=== PATIENT | female | born 1980 | race Two or more races ===

== ENCOUNTER → 2020-07-09 10:34 | Outpatient (BNVA) | payer OTHER, SELFPAY | PROVIDERS: PCP Internal Medicine; Visit Provider Anesthesiology | DX: M47.812 Spondylosis without myelopathy or radiculopathy, cervical region (principal); M47.816 Spondylosis without myelopathy or radiculopathy, lumbar region; M51.36 Other intervertebral disc degeneration, lumbar region; R42 Dizziness and giddiness | CPT/HCPCS: 99214 ==

== ENCOUNTER 2020-09-03 13:18 | Outpatient (REF) | payer OTHER, SELFPAY | END 2020-09-03 13:19 | disposition home or self-care (01) | LOC: HO.LAB 13:18 | PROVIDERS: PCP Internal Medicine; Visit Provider Internal Medicine | DX: Z20.828 Contact with and (suspected) exposure to other viral communicable diseases (principal) | CPT/HCPCS: C9803; U0003 ==

== ENCOUNTER 2020-09-18 05:25 | Outpatient (REF) | payer OTHER, SELFPAY | END 2020-09-18 05:26 | disposition home or self-care (01) | LOC: HO.RADIR 05:25 | PROVIDERS: Visit Provider Anesthesiology | DX: Z13.89 Encounter for screening for other disorder (principal) ==

== ENCOUNTER 2020-11-14 12:45 | Outpatient (REF) | payer OTHER, SELFPAY ==
[2020-11-14 13:54] LABS: MANUAL DIFF FLAG NO
[2020-11-14 14:03] LABS: Basophils Percent Auto 0.4 % (0-2); Eosinophils Percent Auto 0.6 % (0-4); Hematocrit 41.9 % (37-47); Hemoglobin 13.8 g/dl (12.0-16.0); Imm Gran Abs Auto 0.02 X10*3/uL (0.00-0.03); Imm Gran Pct Auto 0.3 % (0.0-0.4); Lymphocytes Absolute Auto 2.3 X10*3/uL (1.2-4.9); Lymphocytes Percent Auto 31.6 % (20-40); Mean Corpuscular HGB Conc 32.9 g/dl (31.0-35.0); Mean Corpuscular Hemoglobin 29.2 pg (27.0-33.0); Mean Corpuscular Volume 88.6 fL (80-98); Monocytes Absolute Auto 0.3 X10*3/uL (0.1-1.2); Monocytes Percent Auto 4.7 % (2-11); Neutrophils Absolute Auto 4.5 X10*3/uL (2.0-8.3); Neutrophils Percent Auto 62.4 % (45-73); Platelet Count 232 X10*3/uL (160-400); Red Blood Count 4.73 X10*6/uL (4.20-5.50); Red Cell Distribution Width 12.5 % (11.0-16.0); White Blood Count 7.3 X10*3/uL (4.8-10.8)
[2020-11-14 14:31] LABS: Alanine Aminotransferase 10 U/L (0-31); Albumin Level 4.5 g/dL (3.5-5.0); Alkaline Phosphatase 98 U/L (39-117); Anion Gap 10 (12-20); Aspartate Amino Transferase 19 U/L (5-31); Bilirubin Total 0.7 mg/dL (0.0-1.0); Blood Urea Nitrogen 10 mg/dL (9-16); Calcium 9.8 mg/dL (8.4-10.2); Carbon Dioxide 29 mmol/L (22-29); Chloride 104 mmol/L (96-108); Cholesterol 274 mg/dL; Estimated Glomerular Filt Rate > 60; Glucose Fasting 89 mg/dL (60-99); HDL Cholesterol 38 mg/dL; LDL Cholesterol Calculated 214 mg/dl; Potassium 4.5 mmol/L (3.3-5.1); Sodium 138 mmol/L (135-145); Total Protein 8.1 g/dL (6.5-8.0); Triglycerides 114 mg/dL
[2020-11-14 14:54] LABS: TSH reflex Free T4 1.16 uIU/mL (0.32-4.0); Vitamin D 25-OH Total 13.4 ng/mL (>30)
[2020-11-14 15:11] LABS: Erythrocyte Sedimentation Rate 34 MM/HR (0-20)
== END 2020-11-14 12:46 | disposition home or self-care (01) ==
LOC: HO.WFDLDS 12:45
PROVIDERS: Visit Provider Family Medicine
DX: Z00.00 Encounter for general adult medical examination without abnormal findings (principal); E55.9 Vitamin D deficiency, unspecified; M94.0 Chondrocostal junction syndrome [Tietze]
CPT/HCPCS: 36415; 80053; 80061; 82306; 84443; 85025; 85652

== ENCOUNTER 2021-01-10 03:35 | Emergency (ER) | payer OTHER, SELFPAY ==
[2021-01-10 03:44] VITALS: BP 155/84; PULSE 82; RESP 14; TEMP 36; O2SAT 100; BMI 30.8
[2021-01-10 04:00] VITALS: BP 163/88; PULSE 84
[2021-01-10 04:02] VITALS: BP 151/70; BP 155/78; PULSE 84
[2021-01-10 04:03] VITALS: BP 163/88; PULSE 84
--- NOTE | 2021-01-10 05:33 | ECG_ITS ---
Test Reason : DIZZINESS Blood Pressure : / mmHG Vent. Rate : 091 BPM Atrial Rate : 091 BPM P-R Int : 144 ms QRS Dur : 076 ms QT Int : 360 ms P-R-T Axes : 046 -01 022 degrees QTc Int : 442 ms Normal sinus rhythm with sinus arrhythmia Cannot rule out Anterior infarct , age undetermined Abnormal ECG When compared with ECG of 23-JAN-2020 13:37, T wave amplitude has decreased in Anterior leads Referred By: Karyn Montejo Electronically Signed By:FERNANDO QUAN MD
--- NOTE | 2021-01-10 05:33 | ED.DIZZY ---
HPI - Dizziness General Chief Complaint: Dizziness Stated Complaint: Dizziness Time Seen by Provider: 01/10/21 05:25 Source: patient Mode of arrival: ambulatory Limitations: no limitations History of Present Illness HPI Narrative: Patient comes emergency room complaining of dizziness. Patient states around midnight she woke up, walk towards the bathroom, noticed that everything in the room was spinning. Patient went to sleep, an hour later she woke up and had the same symptoms. Patient states this spinning/dizziness sensation lasted for approximately 2 hours, came to the emergency room, and her symptoms stopped. At this time, patient has no dizziness. Patient denies headache, no visual changes, no nausea or vomiting, no chest pain or shortness of breath. Patient was able to walk to her room from the waiting room unassisted MD elicited complaint: dizziness Related Data Previous Rx's Medication Instructions Recorded omeprazole 40 mg capsule,delayed 40 mg PO DAILY 90 Days #90 cap 12/05/20 release topiramate 50 mg tablet 50 mg PO BID #60 tab 01/02/21 cyclobenzaprine 5 mg tablet 5 - 10 mg PO TID PRN #20 tab 01/03/21 naproxen 500 mg tablet 500 mg PO BID PRN #30 tab 01/03/21 prednisone 20 mg tablet 20 mg PO DAILY 9 Days #18 tab 01/03/21 Allergies Allergy/AdvReac Type Severity Reaction Status Date / Time Penicillins [PENICILLINS] Allergy Intermediate HIVES Verified 01/03/21 10:27 levofloxacin [From LEVAQUIN] Allergy Mild hives Unverified 01/03/21 10:27 cetirizine [Zyrtec] Allergy Unknown palpitation Verified 01/03/21 10:27 s lamotrigine [LAMOTRIGINE] Allergy Unknown PT DOESN'T Verified 01/03/21 10:27 KNOW, blurry vision latex [LATEX] Allergy Unknown HIVES Verified 01/03/21 10:27 Review of Systems Review of Systems: Constitutional : No Weight loss, No Fever, No Chills, No Night Sweats, No Fatigue, No Malaise ENT/Mouth : No Hearing loss, No Ear Pain, No Nasal Congestion, No Sinus Pain, No Hoarseness, No sore throat, No Rhinorrhea, No Swallowing Difficulty Eyes: No Eye Pain, No Swelling, No Redness, No Foreign Body, No Discharge, No Vision Changes Cardiovascular : No Chest Pain, No SOB, No Dyspnea on Exertion, No Orthopnea, No Edema, No Palpitations Respiratory : No Cough, No Sputum, No Wheezing, No Smoke Exposure, No Dyspnea Gastrointestinal : No Nausea, No Vomiting, No Diarrhea, No Constipation, No abdominal Pain, No Hematochezia, No Melena Genitourinary : no irregular bleeding, No Dysuria, No Urinary Frequency, No Hematuria, No Urinary Incontinence, No Urgency, No Flank Pain, No Urinary Flow Changes, No Hesitancy Musculoskeletal : No joint pain, No Myalgias, No Joint Swelling Skin : No Skin Lesions, No rash Neuro : No Weakness, No Numbness, No Paresthesias, No Loss of Consciousness, complaining of Dizziness (room spinning), No Headache Psych : No Anxiety/Panic, No Depression, No SI/HI/AH/VH, No Social Issues, Heme/Lymph: No Bruising, No Bleeding,No Lymphadenopathy Endocrine : No Polyuria, No Polydipsia, No Temperature Intolerance COUNT INCLUDES THE [facility] Past Medical History Medical History Arthropathy of cervical facet joint Disc degeneration, lumbar Dizziness Spondylosis of lumbar region without myelopathy or radiculopathy Surgical History History of bilateral tubal ligation History of section Hx of prior ablation treatment Family History Family History (Updated 11/13/20 @ 09:14 by Mitzi Raya Driss, [facility]) Father No problems noted. Mother No problems noted. Brother No problems noted. Brother No problems noted. Brother No problems noted. Brother No problems noted. Brother No problems noted. Brother No problems noted. Sister No problems noted. Sister No problems noted. Sister No problems noted. Son No problems noted. Son No problems noted. Son No problems noted. Daughter No problems noted. Daughter No problems noted. Social History Social History (Updated 01/10/21 @ 03:49 by Wen Quiros RN) Alcohol intake: never Smoking Status: Never smoker Advance Directives: No Access to Firearms: No Do you have thoughts of harming others: None Physical Exam Vital Signs: Vital Signs: Last Vital Signs Temp 96.8 F 01/10/21 03:44 Pulse 83 01/10/21 06:00 Resp 14 01/10/21 03:44 BP 154/66 H 01/10/21 06:00 Pulse Ox 99 01/10/21 06:00 Body Mass Index 30.8 Appearance: Alert. Oriented X3. No acute distress. Eyes: Pupils equal, round and reactive to light. No nystagmus ENT: Pharynx normal. Neck: Normal inspection. Neck supple. No lymph nodes noted. No crepitus CVS: Normal heart rate and rhythm. Pulses normal. Normal S1 and S2 Respiratory: No respiratory distress. Breath sounds normal. No Wheezing. No rales Abdomen: Soft and nontender. No rigidity. No distention. good BS x4 Skin: Skin warm and dry. Normal skin color. Normal skin turgor. Extremities: No lower extremity edema. Neuro: Oriented X 3. No motor deficit. No sensory deficit. Moving all extermities. No slurred speech. Patient is able to walk steady, unassisted Course Course Course Narrative: Patient states that she feels much better, patient states that she has good stability, occasionally feels that the room is spinning but it stops almost immediately. On recheck, patient is able to walk, steady gait, unassisted, no nystagmus. Patient likely has vertigo, posterior cerebral circulation stroke is not suspected at this time, BPPV is a differential. MDM - Dizziness Lab Data Result diagrams: 01/10/21 05:50 01/10/21 05:50 Labs: Lab Results 01/10/21 01/10/21 01/10/21 Range/Units 05:50 05:50 05:50 WBC 7.8 (4.8-10.8) X10*3/uL RBC 4.40 (4.20-5.50) X10*6/uL Hgb 13.1 (12.0-16.0) g/dl Hct 39.7 (37-47) % MCV 90.2 (80-98) fL MCH 29.8 (27.0-33.0) pg MCHC 33.0 (31.0-35.0) g/dl RDW 12.7 (11.0-16.0) % Plt Count 246 (160-400) X10*3/uL MPV 10.4 (9.4-12.3) fL Immature Gran % (Auto) 0.6 H (0.0-0.4) % Neut % (Auto) 67.8 (45-73) % Lymph % (Auto) 23.9 (20-40) % [place] % (Auto) 6.7 (2-11) % Eos % (Auto) 0.5 (0-4) % Baso % (Auto) 0.5 (0-2) % Lymph # (Auto) 1.9 (1.2-4.9) X10*3/uL [place] # (Auto) 0.5 (0.1-1.2) X10*3/uL Eos # (Auto) 0.0 (0.0-0.4) X10*3/uL Baso # (Auto) 0.0 (0.0-0.2) X10*3/uL Abs Immat Gran (auto) 0.05 H (0.00-0.03) X10*3/uL Absolute Neuts (auto) 5.3 (2.0-8.3) X10*3/uL Absolute Nucleated RBC 0.000 (0.0-0.012) X10*3/uL Nucleated RBC % (auto) 0.0 (0.0-0.2) /100WBC Sodium 141 (135-145) mmol/L Potassium 4.1 (3.3-5.1) mmol/L Chloride 109 H (96-108) mmol/L Carbon Dioxide 25 (22-29) mmol/L Anion Gap 11 L (12-20) BUN 11 (9-16) mg/dL Creatinine 0.62 (0.5-1.4) mg/dL Estim Creat Clear Calc 104.4 Estimated GFR > 60 Random Glucose 92 (60-115) mg/dL Calcium 9.5 (8.4-10.2) mg/dL Troponin I High Sens < 3.5 (<3.5-17.0) ng/L ECG Data Attestation: I personally reviewed and interpreted this ECG as follows: (Rate 91, sinus rhythm, no ST segment depression or elevation, nonspecific T-wave inversion in lead 3, QTC 442) Discharge Plan Discharge Clinical Impression: Vertigo Patient Disposition: Home, Self-Care Instructions: Vertigo (ED) Additional Instructions: Please follow-up with your primary care physician tomorrow. If you have any worsening or new symptoms, please return to the emergency room or call 911 Prescriptions: No Action topiramate 50 mg tablet 50 mg PO BID Qty: 60 RF: 1 omeprazole 40 mg capsule,delayed release(DR/EC) 40 mg PO DAILY 90 Days Qty: 90 RF: 2 prednisone 20 mg tablet 20 mg PO DAILY 9 Days Qty: 18 RF: 0 naproxen 500 mg tablet 500 mg PO BID PRN (Reason: pain) Qty: 30 RF: 0 cyclobenzaprine 5 mg tablet 5 - 10 mg PO TID PRN (Reason: muscle spasm) Qty: 20 RF: 0
[2021-01-10] MEDS: Meclizine HCl 25 MG TABLET 50 MG PO (05:42)
[2021-01-10 06:00] VITALS: BP 154/66; PULSE 83; O2SAT 99
[2021-01-10 06:00] LABS: MANUAL DIFF FLAG NO
[2021-01-10 06:01] LABS: Basophils Percent Auto 0.5 % (0-2); Eosinophils Percent Auto 0.5 % (0-4); Hematocrit 39.7 % (37-47); Hemoglobin 13.1 g/dl (12.0-16.0); Imm Gran Abs Auto 0.05 X10*3/uL (0.00-0.03); Imm Gran Pct Auto 0.6 % (0.0-0.4); Lymphocytes Absolute Auto 1.9 X10*3/uL (1.2-4.9); Lymphocytes Percent Auto 23.9 % (20-40); Mean Corpuscular Hemoglobin 29.8 pg (27.0-33.0); Mean Corpuscular Volume 90.2 fL (80-98); Mean Platelet Volume 10.4 fL (9.4-12.3); Monocytes Absolute Auto 0.5 X10*3/uL (0.1-1.2); Monocytes Percent Auto 6.7 % (2-11); Neutrophils Absolute Auto 5.3 X10*3/uL (2.0-8.3); Neutrophils Percent Auto 67.8 % (45-73); Platelet Count 246 X10*3/uL (160-400); Red Cell Distribution Width 12.7 % (11.0-16.0); White Blood Count 7.8 X10*3/uL (4.8-10.8)
[2021-01-10 06:31] LABS: Anion Gap 11 (12-20); Blood Urea Nitrogen 11 mg/dL (9-16); Calcium 9.5 mg/dL (8.4-10.2); Carbon Dioxide 25 mmol/L (22-29); Chloride 109 mmol/L (96-108); Creatinine Clr Calc Pharmacy 104.4; Estimated Glomerular Filt Rate > 60; Glucose Random 92 mg/dL (60-115); Potassium 4.1 mmol/L (3.3-5.1); Sodium 141 mmol/L (135-145)
[2021-01-10 06:38] LABS: Troponin-I High Sensitivity < 3.5 ng/L (<3.5-17.0)
--- NOTE | 2021-01-10 06:43 | PC.NURSE ---
Patient states that she felt relief of the dizziness with the meclizine- pt complaining of pressure in the back of her head.
[2021-01-10 07:12] VITALS: BP 143/72; PULSE 84; RESP 18; O2SAT 95
[2021-01-10] MEDS: LORazepam 1 MG TABLET 2 MG PO (07:56)
== END 2021-01-10 08:18 | disposition home or self-care (01) ==
PROVIDERS: Emergency Provider Emergency Medicine; PCP Family Medicine
DX: R42 Dizziness and giddiness (principal); I10 Essential (primary) hypertension
CPT/HCPCS: 36415; 80048; 84484; 85025; 93005; 99283; 99284

== ENCOUNTER 2021-02-14 10:23 | Outpatient (REF) | payer OTHER, SELFPAY ==
[2021-02-14 12:12] LABS: MANUAL DIFF FLAG NO
[2021-02-14 12:18] LABS: Basophils Percent Auto 0.5 % (0-2); Eosinophils Percent Auto 0.7 % (0-4); Hematocrit 39.2 % (37-47); Hemoglobin 12.9 g/dl (12.0-16.0); Imm Gran Abs Auto 0.01 X10*3/uL (0.00-0.03); Imm Gran Pct Auto 0.2 % (0.0-0.4); Lymphocytes Absolute Auto 1.9 X10*3/uL (1.2-4.9); Lymphocytes Percent Auto 30.9 % (20-40); Mean Corpuscular HGB Conc 32.9 g/dl (31.0-35.0); Mean Corpuscular Hemoglobin 29.3 pg (27.0-33.0); Mean Corpuscular Volume 88.9 fL (80-98); Monocytes Absolute Auto 0.3 X10*3/uL (0.1-1.2); Monocytes Percent Auto 5.4 % (2-11); Neutrophils Absolute Auto 3.8 X10*3/uL (2.0-8.3); Neutrophils Percent Auto 62.3 % (45-73); Platelet Count 222 X10*3/uL (160-400); Red Blood Count 4.41 X10*6/uL (4.20-5.50); Red Cell Distribution Width 12.8 % (11.0-16.0); White Blood Count 6.2 X10*3/uL (4.8-10.8)
[2021-02-14 12:59] LABS: Vitamin D 25-OH Total 22.5 ng/mL (>30)
[2021-02-14 13:01] LABS: Alanine Aminotransferase 9 U/L (0-31); Albumin Level 4.1 g/dL (3.5-5.0); Alkaline Phosphatase 81 U/L (39-117); Anion Gap 11 (12-20); Aspartate Amino Transferase 16 U/L (5-31); Bilirubin Total 0.6 mg/dL (0.0-1.0); Blood Urea Nitrogen 11 mg/dL (9-16); C Reactive Protein 0.32 mg/dL (< or = 0.50); Calcium 9.3 mg/dL (8.4-10.2); Carbon Dioxide 27 mmol/L (22-29); Chloride 106 mmol/L (96-108); Cholesterol 262 mg/dL; Estimated Glomerular Filt Rate > 60; Glucose Random 86 mg/dL (60-115); HDL Cholesterol 39 mg/dL; LDL Cholesterol Calculated 210 mg/dl; Potassium 4.1 mmol/L (3.3-5.1); Sodium 140 mmol/L (135-145); Total Protein 7.3 g/dL (6.5-8.0); Triglycerides 69 mg/dL
[2021-02-14 13:13] LABS: Rheumatoid Factor < 15.0 IU/mL (<15.0)
[2021-02-14 13:34] LABS: Erythrocyte Sedimentation Rate 23 MM/HR (0-20)
[2021-02-15 17:21] LABS: Cyclic Citrullinated Peptide <16 UNITS
[2021-02-16 00:11] LABS: Anti Nuclear Antibody Screen POSITIVE (NEGATIVE)
== END 2021-02-14 10:24 | disposition home or self-care (01) ==
LOC: HO.LAB 10:23
PROVIDERS: Absent Provider Family Medicine; PCP Nurse Practitioner Community Health; Visit Provider Student in an Organized Health Care Education/Training Program
DX: M25.50 Pain in unspecified joint (principal); R70.0 Elevated erythrocyte sedimentation rate; M75.31 Calcific tendinitis of right shoulder; M75.32 Calcific tendinitis of left shoulder; Z00.00 Encounter for general adult medical examination without abnormal findings; E78.5 Hyperlipidemia, unspecified; E55.9 Vitamin D deficiency, unspecified
CPT/HCPCS: 36415; 80053; 80061; 82306; 85025; 85652; 86038; 86039; 86140; 86200; 86431; 99202

== ENCOUNTER 2021-02-20 10:14 | Outpatient (REF) | payer OTHER, SELFPAY ==
[2021-02-20 11:43] LABS: Glucose Urine UA NEG (NEG); Leukocyte Esterase Urine TRACE (NEG); Nitrite Urine NEG (NEG); Urine Blood NEG (NEG); Urine Ketones NEG (NEG); Urine Protein NEG (NEG-TRACE)
[2021-02-20 11:45] LABS: Appearance Urine CLEAR; Color Urine YELLOW
[2021-02-20 12:07] LABS: RBC Urine 0-2 /HPF (0); Squamous Epithelial Cell Urine 1+ /LPF
[2021-02-21 13:06] LABS: Anti DNA DS Antibody 8 IU/mL; Antibody to SS-A Antigen <1.0 NEG AI (<1.0 NEG); Antibody to SS-B Antigen <1.0 NEG AI (<1.0 NEG); SM/Ribonucleoprotein Ab <1.0 NEG AI (<1.0 NEG); Smith Protein <1.0 NEG AI (<1.0 NEG); Thyroglobulin Antibodies <1 IU/mL (< or = 1); Thyroid Peroxidase Antibodies 1 IU/mL (<9)
[2021-02-22 16:22] LABS: Complement C3 98 mg/dL (83-193)
== END 2021-02-20 10:15 | disposition home or self-care (01) ==
LOC: HO.LAB 10:14
PROVIDERS: PCP Nurse Practitioner Community Health; Visit Provider Student in an Organized Health Care Education/Training Program
DX: R76.8 Other specified abnormal immunological findings in serum (principal)
CPT/HCPCS: 36415; 81001; 86160; 86225; 86235; 86376; 86800

== ENCOUNTER 2021-02-21 15:32 | Emergency (ER) | payer OTHER, SELFPAY ==
--- NOTE | 2021-02-21 | ECG_ITS ---
Test Reason : DIZZINESS Blood Pressure : / mmHG Vent. Rate : 059 BPM Atrial Rate : 059 BPM P-R Int : 122 ms QRS Dur : 078 ms QT Int : 428 ms P-R-T Axes : -22 006 020 degrees QTc Int : 423 ms Sinus bradycardia Otherwise normal ECG When compared with ECG of 10-JAN-2021 05:41, Vent. rate has decreased BY 32 BPM Referred By: Generic ED Physician Electronically Signed By:FERNANDO QUAN MD
[2021-02-21 16:22] VITALS: BP 160/78; PULSE 66; RESP 18; TEMP 37.2; O2SAT 100; BMI 31.2
[2021-02-21 18:48] VITALS: BP 160/86; PULSE 64; RESP 18; O2SAT 100
[2021-02-21 19:01] LABS: MANUAL DIFF FLAG NO
[2021-02-21 19:03] LABS: Basophils Percent Auto 0.4 % (0-2); Eosinophils Absolute Auto 0.1 X10*3/uL (0.0-0.4); Eosinophils Percent Auto 0.8 % (0-4); Hematocrit 39.5 % (37-47); Hemoglobin 13.3 g/dl (12.0-16.0); Imm Gran Abs Auto 0.04 X10*3/uL (0.00-0.03); Imm Gran Pct Auto 0.5 % (0.0-0.4); Lymphocytes Absolute Auto 2.2 X10*3/uL (1.2-4.9); Lymphocytes Percent Auto 25.7 % (20-40); Mean Corpuscular HGB Conc 33.7 g/dl (31.0-35.0); Mean Corpuscular Hemoglobin 29.9 pg (27.0-33.0); Mean Corpuscular Volume 88.8 fL (80-98); Mean Platelet Volume 10.8 fL (9.4-12.3); Monocytes Absolute Auto 0.4 X10*3/uL (0.1-1.2); Monocytes Percent Auto 4.6 % (2-11); Neutrophils Absolute Auto 5.8 X10*3/uL (2.0-8.3); Platelet Count 213 X10*3/uL (160-400); Red Blood Count 4.45 X10*6/uL (4.20-5.50); Red Cell Distribution Width 12.7 % (11.0-16.0); White Blood Count 8.6 X10*3/uL (4.8-10.8)
[2021-02-21 19:39] LABS: Alanine Aminotransferase 7 U/L (0-31); Albumin Level 4.3 g/dL (3.5-5.0); Alkaline Phosphatase 89 U/L (39-117); Anion Gap 11 (12-20); Aspartate Amino Transferase 19 U/L (5-31); Bilirubin Total 0.4 mg/dL (0.0-1.0); Calcium 9.5 mg/dL (8.4-10.2); Carbon Dioxide 27 mmol/L (22-29); Chloride 106 mmol/L (96-108); Creatinine Clr Calc Pharmacy 95.8; Estimated Glomerular Filt Rate > 60; Glucose Random 84 mg/dL (60-115); Potassium 3.8 mmol/L (3.3-5.1); Sodium 140 mmol/L (135-145); Total Protein 7.6 g/dL (6.5-8.0)
[2021-02-21 19:47] LABS: Blood Urea Nitrogen 10 mg/dL (9-16)
== END 2021-02-21 22:18 | disposition left against medical advice (07) ==
PROVIDERS: Emergency Provider Emergency Medicine
DX: I10 Essential (primary) hypertension (principal); R42 Dizziness and giddiness; E78.5 Hyperlipidemia, unspecified
CPT/HCPCS: 36415; 80053; 85025; 93005; 99283

== ENCOUNTER 2021-04-18 08:17 | Outpatient (REF) | payer OTHER, SELFPAY ==
--- NOTE | ~2021-04-18 | US_ITS ---
EXAMINATION: US ABDOMEN COMPLETE CLINICAL INFORMATION: Right upper quadrant pain. COMPARISON: Renal ultrasound 04/14/2019. CT abdomen and pelvis 12/30/2017. TECHNIQUE: Real-time imaging of the abdominal viscera. FINDINGS: PANCREAS: The pancreas is obscured by overlying gas ABDOMINAL AORTA: The proximal, mid, and distal segments are normal in caliber. INFERIOR VENA CAVA: Visualized portions are normal. LIVER: The liver is normal in size. The liver contour is normal. The liver is diffusely echogenic. No focal hepatic lesion. There is no intrahepatic biliary duct dilatation seen. GALLBLADDER: Normal. The gallbladder is physiologically distended without evidence of stones, sludge, polyps, wall thickening or pericholecystic fluid. COMMON BILE DUCT: Normal in caliber measuring 0.30 cm in diameter. RIGHT KIDNEY: Normal. No hydronephrosis. No renal calculi or focal parenchymal lesions. The kidney measures 10.8 cm in maximum dimension. LEFT KIDNEY: Normal. No hydronephrosis. No renal calculi or focal parenchymal lesions. The kidney measures 11.1 cm in maximum dimension. SPLEEN: Normal. The spleen measures 9.1 cm in maximum dimension. FREE FLUID: None. US/US abdomen complete IMPRESSION: Diffuse hepatic echogenicity without focal lesion. Rest of the abdominal ultrasound is unremarkable.
== END 2021-04-18 08:18 | disposition home or self-care (01) ==
LOC: HO.HMGCX 08:17
PROVIDERS: PCP Nurse Practitioner Community Health; Visit Provider Nurse Practitioner Community Health
DX: R10.11 Right upper quadrant pain (principal)
CPT/HCPCS: 76700

== ENCOUNTER → 2021-05-03 12:19 | Outpatient (BNVA) | payer OTHER, SELFPAY | PROVIDERS: PCP Nurse Practitioner Community Health; Visit Provider Student in an Organized Health Care Education/Training Program | DX: M25.50 Pain in unspecified joint (principal); M79.7 Fibromyalgia | CPT/HCPCS: 99212 ==

== ENCOUNTER 2021-05-31 08:25 | Outpatient (REF) | payer OTHER, SELFPAY | END 2021-05-31 08:26 | disposition home or self-care (01) | LOC: HO.LAB 08:25 | PROVIDERS: Visit Provider Internal Medicine | DX: Z20.822 Contact with and (suspected) exposure to COVID-19 (principal) | CPT/HCPCS: C9803; U0003; U0005 ==

== ENCOUNTER 2021-07-06 09:17 | Emergency (ER) | payer OTHER, SELFPAY ==
[2021-07-06 09:22] VITALS: BP 139/72; PULSE 67; RESP 18; TEMP 36.6; O2SAT 99; BMI 30.9
--- NOTE | 2021-07-06 11:47 | ED.GENADULT ---
HPI - General Adult General Chief complaint: Skin/Abscess/Foreign Body Stated complaint: rash Time Seen by Provider: 07/06/21 11:47 Source: patient Mode of arrival: ambulatory Limitations: no limitations History of Present Illness HPI narrative: Patient noticed yesterday to have rash, round and red on her right lower extremity. Patient denies going into the ahn. However she does [place] Patient denies any pruritus, no drainage, no pain. Patient does not remember feeling like she was bit by any insects. Onset (ago): day(s) Related Data Previous Rx's Medication Instructions Recorded omeprazole 40 mg capsule,delayed 40 mg PO DAILY 90 Days #90 cap 12/05/20 release meclizine 25 mg tablet 25 mg PO TID PRN #36 tab 01/18/21 topiramate 50 mg tablet 50 mg PO BID #60 tab 04/01/21 doxycycline hyclate 100 mg tablet 100 mg PO BID 21 Days #42 tab 07/06/21 Allergies Allergy/AdvReac Type Severity Reaction Status Date / Time Penicillins [PENICILLINS] Allergy Intermediate HIVES Verified 05/03/21 12:27 levofloxacin [From LEVAQUIN] Allergy Mild hives Verified 05/03/21 12:27 cetirizine [Zyrtec] Allergy Unknown palpitation Verified 05/03/21 12:27 s lamotrigine [LAMOTRIGINE] Allergy Unknown blurry Verified 05/03/21 12:27 vision latex [LATEX] Allergy Unknown HIVES Verified 05/03/21 12:27 Review of Systems Review of Systems: Constitutional : No Weight loss, No Fever, No Chills, No Night Sweats, No Fatigue, No Malaise ENT/Mouth : No Hearing loss, No Ear Pain, No Nasal Congestion, No Sinus Pain, No Hoarseness, No sore throat, No Rhinorrhea, No Swallowing Difficulty Eyes: No Eye Pain, No Swelling, No Redness, No Foreign Body, No Discharge, No Vision Changes Cardiovascular : No Chest Pain, No SOB, No Dyspnea on Exertion, No Orthopnea, No Edema, No Palpitations Respiratory : No Cough, No Sputum, No Wheezing, No Smoke Exposure, No Dyspnea Gastrointestinal : No Nausea, No Vomiting, No Diarrhea, No Constipation, No abdominal Pain, No Hematochezia, No Melena Genitourinary : no irregular bleeding, No Dysuria, No Urinary Frequency, No Hematuria, No Urinary Incontinence, No Urgency, No Flank Pain, No Urinary Flow Changes, No Hesitancy Musculoskeletal : No joint pain, No Myalgias, No Joint Swelling Skin : No Skin Lesions, rash to right lower extremity Neuro : No Weakness, No Numbness, No Paresthesias, No Loss of Consciousness, No Dizziness, No Headache Psych : No Anxiety/Panic, No Depression, No SI/HI/AH/VH, No Social Issues, Yes all other systems are reviewed and are negative PMFSH Past Medical History Medical History Arthropathy of cervical facet joint Disc degeneration, lumbar Dizziness Spondylosis of lumbar region without myelopathy or radiculopathy Surgical History History of bilateral tubal ligation History of section Hx of prior ablation treatment Family History Family History Father No problems noted. Mother No problems noted. Brother No problems noted. Brother No problems noted. Brother No problems noted. Brother No problems noted. Brother No problems noted. Brother No problems noted. Sister No problems noted. Sister No problems noted. Sister No problems noted. Son No problems noted. Son No problems noted. Son No problems noted. Daughter No problems noted. Daughter No problems noted. Social History Social History Alcohol intake: never Patient Tobacco Use Status: Never used Tobacco e-Cigarette/Vaping Use: Never Used Advance Directives: No Physical Exam Vital Signs: Vital Signs: Last Vital Signs Temp 97.9 F 07/06/21 09:22 Pulse 67 07/06/21 09:22 Resp 18 07/06/21 09:22 BP 139/72 07/06/21 09:22 Pulse Ox 99 07/06/21 09:22 Body Mass Index 30.9 Const: General: healthy appearing, no acute distress and well developed Nutritional Appearance: well nourished Orientation/consciousness: patient oriented x3 HENMT: Head: Yes normal to inspection, Yes normocephalic and Yes atraumatic Neck: Neck: Yes normal visual inspection, Yes full ROM and Yes trachea midline Thyroid: Thyroid normal Resp: Auscultation: clear to auscultation bilaterally Cardio: Rate: regular rate Rhythm: regular rhythm GI: Inspection: Yes normal to inspection and No distended Palpation (GI): No hepatosplenomegaly present Auscultation: normal bowel sounds Skin: Other: General skin exam: elasticity normal, turgor normal and dry skin Neuro: General: patient oriented x3 Extrem: Right upper extremity: normal to inspection, full ROM and normal capillary refill Left upper extremity: normal to inspection, full ROM and normal capillary refill Right lower extremity: full ROM, normal capillary refill and lower leg (Rash) Left lower extremity: normal to inspection, full ROM and normal capillary refill Course Course Course Narrative: Red rash to her right lower extremity. Typical Bull's eye like looking rash. Patient has not seen any take or any insect bite. She reports that she just noticed that yesterday afternoon. Patient denies being in the ahn, however she does report [place]. We will treat her with doxycycline and send her home on 21 day treatment. Patient can follow-up with PCP. Discharge Plan Discharge Clinical Impression: Tick bite Qualifiers: Encounter type: initial encounter Site of tick bite: lower leg Laterality: right Qualified Code(s): S80.861A - Insect bite (nonvenomous), right lower leg, initial encounter Patient Disposition: Home, Self-Care Instructions: Lyme Disease (ED), Tick Bite (ED) Additional Instructions: You were seen here today for rash on your right lower leg. Even though you have not felt that this is a typical rash after a tick bite. You were started on antibiotics in the ED and please finish all of the antibiotics. Make sure that you stay away from sun while you taking this medication. Please follow-up with your primary care provider. You are given instructions and information on Lyme disease and symptoms. You may return to emergency department if your symptoms will get worse or if you experience any additional concerning symptoms. Prescriptions: New doxycycline hyclate 100 mg tablet 100 mg PO BID 21 Days Qty: 42 RF: 0 No Action topiramate 50 mg tablet 50 mg PO BID Qty: 60 RF: 1 omeprazole 40 mg capsule,delayed release(DR/EC) 40 mg PO DAILY 90 Days Qty: 90 RF: 2 meclizine 25 mg tablet 25 mg PO TID PRN (Reason: vertigo) Qty: 36 RF: 0 Interventions: ED Discharge Assessment Last Done: 07/06/21 12:06 Discharge Date/Time: 07/06/21 12:09
== END 2021-07-06 12:09 | disposition home or self-care (01) ==
PROVIDERS: Emergency Provider Emergency Medicine
DX: S80.861A Insect bite (nonvenomous), right lower leg, initial encounter (principal); R21 Rash and other nonspecific skin eruption; W57.XXXA Bitten or stung by nonvenomous insect and other nonvenomous arthropods, initial encounter; Y92.9 Unspecified place or not applicable; Y93.9 Activity, unspecified; Y99.9 Unspecified external cause status; Z79.899 Other long term (current) drug therapy
CPT/HCPCS: 99283

== ENCOUNTER 2021-07-30 08:46 | Outpatient (REF) | payer OTHER, SELFPAY | END 2021-07-30 08:47 | disposition home or self-care (01) | LOC: HO.LAB 08:46 | PROVIDERS: Visit Provider Internal Medicine | DX: Z20.822 Contact with and (suspected) exposure to COVID-19 (principal) | CPT/HCPCS: C9803; U0003; U0005 ==

== ENCOUNTER 2021-09-16 10:59 | Outpatient (REF) | payer OTHER, SELFPAY ==
[2021-09-16 11:47] LABS: Binax Internal Control QC Valid; Binax Lot number: 9864; Binax Now Covid-19 Ag Negative (Negative)
== END 2021-09-16 11:00 | disposition home or self-care (01) ==
LOC: HO.LAB 10:59
PROVIDERS: Visit Provider Internal Medicine
DX: Z20.822 Contact with and (suspected) exposure to COVID-19 (principal)
CPT/HCPCS: 36415; C9803

== ENCOUNTER 2021-12-09 10:47 | Outpatient (REF) | payer OTHER, SELFPAY ==
--- NOTE | ~2021-12-09 | MM_ITS ---
EXAMINATION: MM SCREENING DIGITAL BREAST TOMOSYNTHESIS, BILATERAL CLINICAL INFORMATION: Screening. Asymptomatic. The lifetime risk of breast cancer based on the Tyrer-Cuzick Model is 12%. COMPARISON: Mammography: 09/03/2019, 02/18/2018, 05/29/2017, 09/23/2016 TECHNIQUE: Digital breast tomosynthesis is performed in both the craniocaudal and mediolateral oblique views along with computer-aided detection (CAD). Synthesized 2D images are generated from the tomosynthesis. FINDINGS: There are scattered areas of fibroglandular density (ACR BI-RADS breast composition Category b). There are no significant masses, abnormal calcifications, or other abnormalities. Parenchymal pattern is similar to prior studies. There is no developing density or architectural abnormality. The axilla and skin contours are unremarkable. No significant changes. MM/MM tomosynthesis screening BI IMPRESSION: No mammographic evidence of malignancy. ASSESSMENT: BI-RADS 2: Benign RECOMMENDATION: Routine annual mammography screening. This patient's information was entered into a reminder system with a target due date for their next mammogram.
== END 2021-12-09 10:48 | disposition home or self-care (01) ==
LOC: HO.MAMMO 10:47
PROVIDERS: Visit Provider Nurse Practitioner Community Health
DX: Z12.31 Encounter for screening mammogram for malignant neoplasm of breast (principal)
CPT/HCPCS: 77063; 77067

== ENCOUNTER 2022-12-13 08:06 | Outpatient (REF) | payer OTHER, SELFPAY ==
--- NOTE | ~2022-12-13 | MM_ITS ---
EXAMINATION: MM SCREENING DIGITAL BREAST TOMOSYNTHESIS, BILATERAL CLINICAL INFORMATION: Screening. Asymptomatic. The lifetime risk of breast cancer based on the Tyrer-Cuzick Model is 6%. COMPARISON: Prior mammography exams, most recent 12/09/2021. TECHNIQUE: Digital breast tomosynthesis is performed in both the craniocaudal and mediolateral oblique views along with computer-aided detection (CAD). Synthesized 2D images are generated from the tomosynthesis. FINDINGS: There are scattered areas of fibroglandular density (ACR BI-RADS breast composition Category b). There are no significant masses, abnormal calcifications, or other abnormalities. No architectural abnormality or developing density or significant change from prior studies. The axilla are unremarkable. MM/MM tomosynthesis screening BI IMPRESSION: No mammographic evidence of malignancy. ASSESSMENT: BI-RADS 1: Negative RECOMMENDATION: Routine annual mammography screening. This patient's information was entered into a reminder system with a target due date for their next mammogram.
== END 2022-12-13 08:07 | disposition home or self-care (01) ==
LOC: HO.MAMMO 08:06
PROVIDERS: PCP Nurse Practitioner Community Health; Visit Provider Nurse Practitioner Community Health
DX: Z12.31 Encounter for screening mammogram for malignant neoplasm of breast (principal)
CPT/HCPCS: 77063; 77067

== ENCOUNTER 2023-03-23 10:59 | Emergency (ER) | payer OTHER, SELFPAY ==
[2023-03-23 11:12] VITALS: BP 154/82; PULSE 81; RESP 18; TEMP 36.5; O2SAT 98; BMI 32.2
--- NOTE | 2023-03-23 11:12 | ED_ITS ---
HPI - General Adult General Chief complaint: Allergic Reaction Stated complaint: allergic reaction Time Seen by Provider: 03/23/23 11:41 Source: patient Mode of arrival: ambulatory Limitations: no limitations History of Present Illness HPI narrative: Patient is a 42 year old assigned female at with a history of fibromyalgia, GERD, HTN, and fungal infection of the intestines presenting to the emergency department today with a possible adverse reaction to fluconazole. Patient states that months ago she was told that she had a fungal infection in her intestines and was given 2 weeks worth of fluconzaole. Patient states that she took the first dose back then, had a weird reaction, and waited months to take the second. Patient states that she took the second dose today and immediately had a tingling sensation throughout her whole body. Patient states that all of this GI testing was performed by [facility]. Patient denies any dizziness, lightheadedness, abdominal pain, nausea, vomiting, fever, chills, eileen rry vision, double vision, loss of vision, chest pain, difficulty breathing, shortness of breath, back pain, night sweats, pain with urination, increased urinary frequency, increased urinary urgency, blood in her urine or stool, syncope or a near syncopal episode, recent trauma or falls, bowel incontinence, bladder incontinence, bowel retention, bladder retention, or any other complaints at this time. Onset (ago): minute(s) Severity: mild Severity scale (1-10): 1 Relieving factors: none Exacerbating factors: none Associated symptoms: denies other symptoms Treatments prior to arrival: none Related Data Previous Rx's Medication Instructions Recorded meclizine 25 mg tablet 25 mg PO TID PRN vertigo #36 tabs 01/18/21 topiramate 50 mg tablet 50 mg PO BID #60 tabs 04/01/21 doxycycline hyclate 100 mg tablet 100 mg PO BID 21 days #42 tabs 07/06/21 omeprazole 40 mg capsule,delayed 40 mg PO DAILY #90 caps 09/02/21 release terbinafine HCl 250 mg tablet 250 mg PO DAILY #14 tabs 03/23/23 Allergies Allergy/AdvReac Type Severity Reaction Status Date / Time Penicillins [PENICILLINS] Allergy Intermediate HIVES Verified 03/23/23 11:12 levofloxacin [From LEVAQUIN] Allergy Mild hives Verified 03/23/23 11:12 cetirizine [Zyrtec] Allergy Unknown palpitation Verified 03/23/23 11:12 s lamotrigine [LAMOTRIGINE] Allergy Unknown blurry Verified 03/23/23 11:12 vision latex [LATEX] Allergy Unknown HIVES Verified 03/23/23 11:12 Review of Systems Constitutional: Constitutional: Reports no additional constitutional complaints, Denies chills, Denies fever(s) and Denies night sweats Eyes: Eyes: Reports no additional eye complaints, Denies blurry vision, Denies change in vision, Denies diplopia, Denies eye discharge, Denies loss of vision and Denies eye pain ENT: Denies dizziness Cardiovascular: Cardiovascular: Reports no additional cardiovascular complaints, Denies chest pain, Denies lightheadedness, Denies Loss of Consciousness and Denies dyspnea Respiratory: Respiratory: Reports no additional respiratory complaints and Denies dyspnea Gastrointestinal: Gastrointestinal: Reports no additional gastrointestinal complaints, Denies abdominal pain, Denies melena, Denies hematochezia, Denies change in bowel habits and Denies change in stool character Genitourinary: Genitourinary: Denies hematuria, Denies urinary frequency, Denies dysuria, Denies urinary incontinence, Denies urinary hesitancy and Denies urinary urgency Musculoskeletal: Musculoskeletal: Reports no additional musculoskeletal complaints, Denies numbness and Denies tingling Neurologic: Denies dizziness, Denies loss of vision, Denies numbness and Daquan es tingling Psychiatric: Psychiatric: Reports no additional psychiatric complaints Endocrine: Endocrine: Reports no additional endocrine complaints Hematologic/Lymphatic: Hematologic/Lymphatic: Reports no additional hematologic/lymphatic complaints Allergic/Immunologic: Allergic/Immunologic: Reports no additional allergic/immunologic complaints [facility] Past Medical History Attestation statement: The following information was validated with the patient. Source: old records reviewed and nursing notes reviewed Medical History Arthropathy of cervical facet joint Disc degeneration, lumbar Dizziness Spondylosis of lumbar region without myelopathy or radiculopathy Surgical History History of bilateral tubal ligation History of section Hx of prior ablation treatment Family History Family History Father No problems noted. Mother No problems noted. Brother No problems noted. Brother No problems noted. Brother No problems noted. Brother No problems noted. Brother No problems noted. Brother No problems noted. Sister No problems noted. Sister No problems noted. Sister No problems noted. Son No problems noted. Son No problems noted. Son No problems noted. Daughter No problems noted. Daughter No problems noted. Social History Social History Alcohol intake: never Patient Tobacco Use Status: Never used Tobacco e-Cigarette/Vaping Use: Never Used Advance Directives: No Advance Directives Information Provided: Yes Physical Exam ED Vital Signs: Vital Signs - 24 hr 03/23/23 11:12 Temperature 97.7 F Pulse Rate 81 Respiratory Rate 18 Blood Pressure 154/82 H Pulse Oximetry 98 Oxygen Delivery Method Room Air BMI result Body Mass Index 32.2 Const General: cooperative, no acute distress, alert and awake Nutritional Appearance: well nourished Orientation/consciousness: patient oriented x3 Limitations: no limitations HENMT Head: Yes normal to inspection and Yes atraumatic Ears: hearing grossly normal bilaterally and external ears normal General nose exam: Normal external nose present, no nasal discharge noted and no epistaxis Face and sinus: Yes normal facial exam, No abrasion and No laceration Mouth: Normal oral and palatal mucosa present, no drooling and no muffled voice Eyes General: appearance normal, both eyes and all related structures Periorbital: periorbital findings normal Eyelids: Yes eyelids normal Conjunctivae: conjunctivae normal Pupils: Equal, round and reactive pupils present EOM: EOMs intact bilaterally Neck Neck: Yes normal visual inspection, Yes full ROM and Yes no lymphadenopathy Chest Chest palpation & inspection: normal inspection of the chest Resp Effort & Inspection: normal respiratory effort and able to speak in complete sentences Auscultation: clear to auscultation bilaterally Cardio Rate: regular rate Rhythm: regular rhythm GI Inspection: Yes normal to inspection Palpation (GI): Soft to palpation, not firm, nontender and no guarding Neuro General: patient oriented x3 and moves all extremities Cranial nerves: Yes Equal, round and reactive pupils present Cognition (Neuro): normal cognition Motor exam (neuro): 5/5 motor strength present throughout Sensory Exam: Normal double simultaneous stimulation for sensation Coordination: [id number] test normal Extrem General: Yes normal to inspection, Yes full ROM and Yes capillary refill normal Psych Appearance: grossly normal Mental Status: mental status grossly normal Affect: normal affect Attitude: cooperative Thought process: Normal thought process present Thought content: Normal thought content present Insight: Good insight present (Psych) Course Course Course Narrative: This is an RME: Additional HPI, ROS, PE not included below will be deferred to primary provider. Patient is a 42 year old female with a PMH of fibromyalgia, vertigo, and polyarthralgia presents post starting fluconazole this morning and is now experiencing pain and tingling in mouth and tongue. Patient denies fever, chills, night sweats, nausea, vomiting, chest pain, shortness of breath. Plan: benadryl Medications Administered Discontinued Medications Generic Name Dose Route Start Last Admin Trade Name Nitinq PRN Reason Stop Dose Admin Diphenhydramine HCl 50 mg 03/23/23 11:53 03/23/23 11:59 Diphenhydramine Hcl 25 Mg Capsule PO 03/23/23 11:54 50 mg ONCE ONE Administration Methylprednisolone Sodium Succinate 60 mg 03/23/23 11:53 03/23/23 11:57 Methylprednisolone Sod Succ 125 Mg/2 Ml Vial IM 03/23/23 11:54 60 mg ONCE ONE Administration Medical Decision Making Medical Decision Making [facility] Narrative: Patient is a 42 year old assigned female at with a history of HTN, GERD, fibromyalgia, and a fungal infection of the intestines presenting to the emergency department today with an adverse drug reaction to fluconazole. Melanie valdez's physical exam was unremarkable. I explained my physical exam findings to the patient and the patient's daughter. I answered all questions asked by the patient and the patient's daughter. Patient received PO Benadryl and IM Solu- Medrol which she stated helped her symptoms significantly. I stressed the importance of the patient taking her medication as prescribed, however, I did recommend she stop the fluconzaole and switch to the anti-fungal medication I prescribed her today. I stressed the importance of the patient following up with her primary care provider and her [facility] GI provider. I stressed the importance of the patient returning to the emergency department immediately if her symptoms were to worsen or if she were to develop any dizziness, shortness of breath, difficulty breathing, chest pain, blurry vision, loss of vision, nausea, vomiting, abdominal pain, fever, chills, back pain, or any other complaints. Patient and the patient's daughter verbalized agreement and un derstanding with this treatment plan and discharge. Differential Diagnosis Differential Diagnoses: The differential diagnosis associated with the presentation includes Adverse medication reaction Allergic reaction Prescription Management I considered prescription management with: Other (antifungal for previous instestinal fungal infection) Chronic Conditions Patient?s care impacted by: Hypertension Discharge Plan Discharge Clinical Impression: Allergic reaction Patient Disposition: Home, Self-Care Instructions: Allergy Testing (ED) Additional Instructions: Follow up with your primary care provider and your GI specialist at [facility]. STOP taking the Fluconazole and begin taking the medication I prescribed you for your instestinal fungal infection. Return to the emergency department immediately if your symptoms worsen or if you develop any dizziness, shortness of breath, difficulty breathing, chest pain, blurry vision, loss of vision, nausea, vomiting, abdominal pain, fever, chills, back pain, or any other complaints. Prescriptions: New terbinafine HCl 250 mg tablet 250 mg PO DAILY Qty: 14 0RF No Action topiramate 50 mg tablet 50 mg PO BID Qty: 60 1RF omeprazole 40 mg capsule,delayed release(DR/EC) 40 mg PO DAILY Qty: 90 2RF doxycycline hyclate 100 mg tablet 100 mg PO BID 21 Days Qty: 42 0RF meclizine 25 mg tablet 25 mg PO TID PRN (Reason: vertigo) Qty: 36 0RF Referrals: [facility] Family Medicine [Provider Group] (Call to establish and follow up with a primary care provider. If you already have a primary care provider, please follow up with them.) [facility] [Provider Group] (Call to establish and follow up with a primary care provider. If you already have a primary care provider, please follow up with them.) [facility] Primary [facility] [Provider Group] (Call to establish and follow up with a primary care provider. If you already have a primary care provider, please follow up with them.) Stand Alone Forms: Work/School Release Interventions: ED Discharge Assessment Last Done: 03/23/23 12:10 Discharge Date/Time: 03/23/23 12:11 Print Language: Amharic
== END 2023-03-23 12:11 | disposition home or self-care (01) ==
PROVIDERS: Emergency Provider Emergency Medicine
DX: L50.0 Allergic urticaria (principal); Z79.899 Other long term (current) drug therapy
CPT/HCPCS: 96372; 99282; 99284; J2930

== ENCOUNTER 2023-07-19 15:33 | Emergency (ER) | payer OTHER, SELFPAY ==
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
[2023-07-19 15:48] VITALS: BP 150/85; PULSE 92; RESP 18; TEMP 36.6; O2SAT 99; BMI 32.5
--- NOTE | 2023-07-19 17:31 | PC.NURSE ---
Able to independently move around room, bending over and moving around on bed, denying worsening pain/numbness/tingling. able to ambulate indepndently. D/C placed
== END 2023-07-19 17:32 | disposition home or self-care (01) ==
PROVIDERS: Emergency Provider Emergency Medicine
DX: S16.1XXA Strain of muscle, fascia and tendon at neck level, initial encounter (principal); X58.XXXA Exposure to other specified factors, initial encounter; Y93.9 Activity, unspecified; Y92.9 Unspecified place or not applicable; Y99.9 Unspecified external cause status; M54.2 Cervicalgia; M54.89 Other dorsalgia; M79.7 Fibromyalgia; K21.9 Gastro-esophageal reflux disease without esophagitis; I10 Essential (primary) hypertension
CPT/HCPCS: 72125; 99284

== ENCOUNTER 2023-09-22 11:53 | Outpatient (AMB) | payer OTHER, SELFPAY ==
[2023-09-22 12:03] VITALS: BP 132/66; PULSE 86; BMI 33.0
--- NOTE | 2023-09-22 12:03 | MHC.OFFVIS ---
Intake Vital Signs 09/22/23 12:03 Height 5 ft Weight 169 lb BMI 33.0 BP 132/66 Blood Pressure Location Lt brachial Position Sitting Pulse 86 Intake Visit Reasons: Gastroesophageal reflux disease (GERD) Intake Note: New consult for GERD. Patient cc: GERD with burning sensation, Nauseas, abdominal bloating, between diarrhea and constipation , a some dysphagia. 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 Accompanied by: Self / Same As Patient Allergies Penicillins [PENICILLINS] Allergy (Intermediate, Verified 09/22/23 12:02) HIVES levofloxacin [From LEVAQUIN] Allergy (Mild, Verified 09/22/23 12:02) hives cetirizine [Zyrtec] Allergy (Unknown, Verified 09/22/23 12:02) palpitations lamotrigine [LAMOTRIGINE] Allergy (Unknown, Verified 09/22/23 12:02) blurry vision latex [LATEX] Allergy (Unknown, Verified 09/22/23 12:02) HIVES Medication List - Last Reconciled 09/22/23 by Janene German PA-C acetaminophen 1,000 mg (2 x 500 mg) PO QID PRN HPI HPI Comments History of Present Illness Details A 43-year-old female referred with persistent acid reflux- she says she was seen by GI @ [facility] 1 year ago EGD and normal colonoscopy EGD was treated for HP as well as a fungus- she had an allergic reaction- was then seen in [facility]- and treated-she has no detail. 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 Mother No problems noted. Brother No problems noted. Brother No problems noted. Brother No problems noted. Brother No problems noted. Brother No problems noted. Brother No problems noted. Sister No problems noted. Sister No problems noted. Sister No problems noted. Son No problems noted. Son No problems noted. Son No problems noted. Daughter No problems noted. Daughter No problems noted. Social History (Updated 09/22/23 @ 12:21 by Janene German PA-C) Household Members Other:: 5 kids, single Alcohol intake: never Patient Tobacco Use Status: Never used Tobacco e-Cigarette/Vaping Use: Never Used Current occupational status: unemployed and disabled Review of Systems Const All systems reviewed & are unremarkable except as noted in HPI and below Physical Exam Vital Signs: Last Vital Signs Pulse 86 09/22/23 12:03 BP 132/66 09/22/23 12:03 BMI result Body Mass Index 33.0 Const General: healthy appearing and comfortable Orientation/consciousness: patient oriented x3 Limitations: no limitations Eyes Sclerae: sclerae normal Cardio Rate: regular rate Rhythm: regular rhythm Heart sounds: S1 normal heart sound present and S2 normal heart sound present GI Palpation (GI): Soft to palpation and nontender Auscultation: normal bowel sounds Skin General skin exam: no rashes or lesions noted Neuro General: patient oriented x3 Extrem General: Yes full ROM Psych Appearance: grossly normal and well kempt Speech and movement: Normal speech and movement present Affect: normal affect Attitude: cooperative Thought process: Normal thought process present Thought content: Normal thought content present Assessment & Plan Assessment & Plan (1) GERD (gastroesophageal reflux disease): Comment: EGD/colonoscopy 12/2022-[facility]- esophagitis- tx antifungal Code(s): K21.9 - Gastro-esophageal reflux disease without esophagitis (2) History of colonoscopy: Code(s): Z98.890 - Other specified postprocedural states (3) History of Helicobacter pylori infection: Code(s): Z86.19 - Personal history of other infectious and parasitic diseases Plan HP stool antigen- if positive tx Pantoprazole 20 mg Reflux precautions [facility] records EGD colonoscopy from for 2022 Orders: Orders H pylori Ag Stool 09/22/23 A04.8 - Other specified bacterial intestinal infections Medications: New pantoprazole 20 mg PO QAM 30 tabs 6RF Patient Instructions: HP stool antigen- if positive tx Pantoprazole 20 mg Reflux precautions Encouraged to call questions or concerns Will see back in follow-up for progress Coding Level of Care Code New Pt Level 4 (14875) Diagnoses GERD (gastroesophageal reflux disease) K21.9 History of colonoscopy Z98.890 History of Helicobacter pylori infection Z86.19 Time Spent (min) 35
== END 2023-09-22 13:22 | disposition home or self-care (01) ==
PROVIDERS: PCP Nurse Practitioner Community Health; Visit Provider Physician Assistant
DX: K21.9 Gastro-esophageal reflux disease without esophagitis (principal); Z98.890 Other specified postprocedural states; Z86.19 Personal history of other infectious and parasitic diseases
CPT/HCPCS: 99204

== ENCOUNTER → 2023-09-22 11:53 | Outpatient (BNVA) | payer OTHER, SELFPAY | PROVIDERS: PCP Nurse Practitioner Community Health; Visit Provider Physician Assistant | DX: K21.9 Gastro-esophageal reflux disease without esophagitis (principal); Z86.19 Personal history of other infectious and parasitic diseases; Z98.890 Other specified postprocedural states | CPT/HCPCS: 99202 ==

== ENCOUNTER 2023-11-04 15:15 | Outpatient (REF) | payer OTHER, SELFPAY | END 2023-11-04 15:16 | disposition home or self-care (01) | LOC: HO.LNP 15:15 | PROVIDERS: Visit Provider Physician Assistant | DX: A04.8 Other specified bacterial intestinal infections (principal) | CPT/HCPCS: 87338 ==

== ENCOUNTER 2024-09-19 09:03 | Outpatient (AMB) | payer OTHER, SELFPAY ==
--- NOTE | 2024-09-19 09:22 | MHC.OFFVIS ---
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 Patient reports she is experiencing pain only when she is experiencing locking of her right thumb. The locking of the finger started approximately 6 months ago. She had a fall in June or July of 2024 and landed on both hands. She was having pain and swelling from the fall but then says it resolved about 2 weeks after. 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 Patient states that she did also sustain a fall at approximately gi, and then she began to experience increased painless swelling in her right hand at this time, but this has since resolved. The patient reports that she only experiences the locking and catching extremely occasionally now, but her larger concern is that she has unable to flex the IP joint of the right thumb past neutral. Patient reports no pain associated with this, she is physically unable to do it. Denies any numbness or tingling right hand. No other acute complaints or concerns at this time. [facility] Medical History (Updated 09/19/24 @ 09:56 by JUMA Tovar) Dizziness Disc degeneration, lumbar Spondylosis of lumbar region without myelopathy or radiculopathy Arthropathy of cervical facet joint Surgical History (Updated 09/22/23 @ 12:48 by Janene Geramn PA-C) History of esophagogastroduodenoscopy (EGD) Hx of prior ablation treatment History of section History of bilateral tubal ligation Family History Father No problems noted. Mother No problems noted. Brother No problems noted. Brother No problems noted. Brother No problems noted. Brother No problems noted. Brother No problems noted. Brother No problems noted. Sister No problems noted. Sister No problems noted. Sister No problems noted. Son No problems noted. Son No problems noted. Son No problems noted. Daughter No problems noted. Daughter No problems noted. Social History Household Members Other:: 5 kids, single Alcohol intake: never Patient Tobacco Use Status: Never used Tobacco e-Cigarette/Vaping Use: Never Used Current occupational status: unemployed and disabled Review of Systems Const All systems reviewed & are unremarkable except as noted in HPI and below Physical Exam Vital Signs: BMI result Body Mass Index 33.0 Extrem Other: Patient is alert, oriented, and in no acute distress. Neuro: Normal sensation of the tips of all digits of the right hand at this time Vascular: Cap refill brisk Pain: Patient reports some minor tenderness to palpation at the level of the A1 gael of the right thumb No pain with range of motion of the right hand ROM: Patient is only able to flex the IP joint of the right thumb to neutral, unable to flex beyond this Not due to pain, physically unable to do so IP joint of the right thumb was able to be passively flex to approximately 90 degrees without difficulty Patient is able to flex and extend all other digits of the right hand fully and without difficulty Skin: No lacerations or abrasions. General: No ecchymosis, erythema, or evidence of infection. Psych: Appears grossly normal Affect normal Attitude cooperative Results Reviewed Results Reviewed: X-rays obtained in the office today and independently reviewed by me, Mirza Lorenz PA-C, demonstrate no fracture or acute bony abnormality of the right hand. Assessment & Plan Assessment & Plan (1) Stiffness of finger joint of right hand: Code(s): M25.641 - Stiffness of right hand, not elsewhere classified Category: Medical Plan 1. Stiffness of IP joint of right thumb Ongoing for approximately 2-3 months Slightly improved over that time At this time, I feel that the patient's symptoms may be more related to stiffness after her fall as opposed to a trigger thumb, as there is no active locking or catching office today Due to the patient having pain at the level of the gael, she is offered a steroid injection, however she declines, stating in the last time she had a steroid injection she had a headache for approximately 2-3 months Patient was referred to occupational therapy for range of motion and strengthening of the right hand, particularly the thumb Patient was amenable to this plan Patient will follow-up in 3-4 weeks with me while Dr. Ferguson in the office, sooner with any acute concerns Orders: Orders OT Evaluation and Treatment Today M25.641 - Stiffness of right hand, not elsewhere classified XR hand RT min 3V Today M79.641 - Pain in right hand Coding Level of Care Code New Pt Level 3 (41160) Diagnoses Stiffness of finger joint of right hand M25.641
[2024-09-19 09:24] VITALS: BMI 33.0
== END 2024-09-19 09:57 | disposition home or self-care (01) ==
PROVIDERS: PCP Nurse Practitioner Community Health
DX: M25.641 Stiffness of right hand, not elsewhere classified (principal)
CPT/HCPCS: 99203

== ENCOUNTER 2024-09-19 09:03 | Outpatient (REF) | payer OTHER, SELFPAY ==
--- NOTE | ~2024-09-19 | XR_ITS ---
EXAMINATION: XR HAND 3 OR MORE VIEWS RIGHT HISTORY: M79.641 - Pain in right hand COMPARISON: There are no prior studies available for comparison. FINDINGS: Three views of the right hand are submitted. Osseous mineralization is normal. There is no fracture or dislocation. The joint spaces are preserved. The soft tissues are unremarkable. XR/XR hand RT min 3V IMPRESSION: Unremarkable examination of the right hand. Electronically signed by: Galileo Friedman MD 09/21/2024 10:49 AM [facility]
== END 2024-09-19 09:04 | disposition home or self-care (01) ==
LOC: HO.HOSX 09:03
PROVIDERS: PCP Nurse Practitioner Community Health
DX: M79.641 Pain in right hand (principal); M25.641 Stiffness of right hand, not elsewhere classified
CPT/HCPCS: 73130; 99202

== ENCOUNTER 2024-09-30 09:24 | Emergency (ER) | payer OTHER, SELFPAY ==
--- NOTE | ~2024-09-30 | XR_ITS ---
EXAMINATION: XR SHOULDER, RIGHT CLINICAL INFORMATION: pain COMPARISON: April 30, 2020 TECHNIQUE: AP external rotation, Grashey, scapular Y, and axillary views of the right shoulder. FINDINGS: Well-corticated calcifications along the supraspinatus tendon insertion. No acute cortical disruption or malalignment. No lytic or blastic lesions. XR/XR shoulder RT min 2V IMPRESSION: Tendinosis versus tendinopathy, supraspinatus. Electronically signed by: Eliud Zambrano MD 09/30/2024 10:13 AM [facility] ARCEO
[2024-09-30 09:30] VITALS: BP 159/79; PULSE 94; RESP 16; TEMP 36.6; O2SAT 97; BMI 32.0
--- NOTE | 2024-09-30 10:39 | ED.EXTPRO ---
HPI - Extremity Problem General Chief complaint: Extremity Problem Stated complaint: shoulder pain Time Seen by Provider: 09/30/24 10:28 Source: patient, family and old records reviewed Mode of arrival: ambulatory Limitations: no limitations History of Present Illness ED Provider: AYLA ZHOU Narrative: 44 yo female with PMH of anxiety, polyarthralgia, NADEEN +, fibromyalgia, HLD, HTN here with c/o R shoulder pain x 2 weeks hurts to move and touch. No known trauma or rash. States she can do some movements but not all. She denies numbness, weakness, cold blue hands. She is R hand dominant. She is not on any medications for it. Pain has been severe MD Complaint: joint pain Onset (ago): week(s) (2) Pain Consistency: constant Location: right and upper extremity Quality: aching, dull and constant Radiation: none Relieving factors: immobilization Exacerbating factors: range of motion and palpation Associated symptoms: denies other symptoms Related Data Previous Rx's ?Medication ?Instructions ?Recorded cyclobenzaprine 10 mg tablet 10 mg PO TID PRN muscle spasm #20 09/30/24 tabs lidocaine 5 % topical patch 1 patch topical DAILY #30 ea 09/30/24 prednisone 20 mg tablet 40 mg (2 x 20 mg) PO DAILY 5 days 09/30/24 #10 tabs Allergies Allergy/AdvReac Type Severity Reaction Status Date / Time Penicillins [PENICILLINS] Allergy Intermediate HIVES Verified 09/30/24 09:32 levofloxacin [From LEVAQUIN] Allergy Mild hives Verified 09/30/24 09:32 cetirizine [Zyrtec] Allergy Unknown palpitation Verified 09/30/24 09:32 s lamotrigine [LAMOTRIGINE] Allergy Unknown blurry Verified 09/30/24 09:32 vision latex [LATEX] Allergy Unknown HIVES Verified 09/30/24 09:32 Review of Systems Review of Systems: Constitutional : No Fever, No Chills ENT/Mouth : No Ear Pain, No Hoarseness, No sore throat Eyes: No Eye Pain, No Swelling, No Redness, No Foreign Body Cardiovascular : No Chest Pain, No SOB Respiratory : No Cough, No Dyspnea Gastrointestinal : No Nausea, No Vomiting, No Diarrhea, No abdominal Pain Genitourinary : No Dysuria, No Hematuria Musculoskeletal : positive joint pain, No Myalgias, No Joint Swelling Skin : No Skin lacerations, No rash Neuro : No Weakness, No Numbness All other systems reviewed and are negative [facility] Past Medical History Attestation statement: The following information was validated with the patient. 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 Mother No problems noted. Brother No problems noted. Brother No problems noted. Brother No problems noted. Brother No problems noted. Brother No problems noted. Brother No problems noted. Sister No problems noted. Sister No problems noted. Sister No problems noted. Son No problems noted. Son No problems noted. Son No problems noted. Daughter No problems noted. Daughter No problems noted. Social History Social History Household Members Other:: 5 kids, single Alcohol intake: never Patient Tobacco Use Status: Never used Tobacco e-Cigarette/Vaping Use: Never Used Advance Directives: No Advance Directives Information Provided: Yes Current occupational status: unemployed and disabled Physical Exam Vital Signs: Vital Signs: Last Vital Signs Temp 97.9 F 09/30/24 09:30 Pulse 94 09/30/24 09:30 Resp 16 09/30/24 09:30 BP 159/79 H 09/30/24 09:30 Pulse Ox 97 09/30/24 09:30 O2 Del Method Room Air 09/30/24 09:30 BMI result Body Mass Index 32.0 Appearance: Alert. Oriented X3. No acute distress. Eyes: Pupils equal, round and reactive to light. ENT: Pharynx normal. Neck: Normal inspection. Neck supple. CVS: Normal heart rate and rhythm. Pulses normal. Respiratory: No respiratory distress. Breath sounds normal. Abdomen: Soft and nontender. Skin: Skin warm and dry. Normal skin color. Normal skin turgor. Extremities: No lower extremity edema. R shoulder ttp along biceps proximal tendon head, distal NV intact, warm hand as well Neuro: Oriented X 3. No motor deficit. No sensory deficit. CN2-12 intact Medical Decision Making Medical Decision Making MDM Narrative: 44 yo female with PMH of anxiety, polyarthralgia, NADEEN +, fibromyalgia, HLD, HTN here with c/o R shoulder pain no trauma no rash no fevers denies known cause at this time she is NV intact. At this time xray ordered though low susp for trauma. No signs of infection. Will place in sling and provide supportive medications Differential Diagnosis Differential Diagnoses: The differential diagnosis associated with the presentation includes tendonitis, strain, rotator cuff syndrome Independent Interpretation I performed an independent interpretation of an: Plain X-Ray (tendonitis) Radiology Impression Discussion of test interpretation with radiology: I have reviewed the radiologist's reading. External Record Review External record reviewed: Outpatient record Prescription Management I considered prescription management with: Pain Medication and Other Discharge Plan Discharge Clinical Impression: Tendonitis Patient Disposition: Home, Self-Care Instructions: Tendinitis (ED) Additional Instructions: xray shows tendinopathy please follow up with your doctor on Thursday use sling for 3 days return for worsening pain or any other concerns Prescriptions: New cyclobenzaprine 10 mg tablet 10 mg PO TID PRN (Reason: muscle spasm) Qty: 20 0RF prednisone 20 mg tablet 40 mg PO DAILY 5 Days Qty: 10 0RF lidocaine 5 % adhesive patch,medicated 1 patch topical DAILY Qty: 30 0RF Rx Instructions: leave on most painful area for up to 12 hrs Referrals: [facility] [Provider Group] (call if not better) Stand Alone Forms: Work/School Release Discharge Date/Time: 09/30/24 10:54 Print Language: Azeri
--- NOTE | 2024-09-30 10:53 | PC.NURSE ---
pt was evaluated and discharged by the provider in triage
== END 2024-09-30 10:54 | disposition home or self-care (01) ==
PROVIDERS: Emergency Provider Emergency Medicine; PCP Nurse Practitioner Community Health
DX: M75.91 Shoulder lesion, unspecified, right shoulder (principal); M25.511 Pain in right shoulder
CPT/HCPCS: 73030; 99281; 99283

== ENCOUNTER → 2024-09-30 10:00 | Outpatient (BNV) | payer OTHER, SELFPAY | PROVIDERS: Emergency Provider Emergency Medicine; PCP Nurse Practitioner Community Health; Visit Provider Radiology Diagnostic Radiology | DX: M25.511 Pain in right shoulder (principal) | CPT/HCPCS: 73030 ==

== ENCOUNTER 2024-10-07 08:21 | Outpatient (RCR) | payer OTHER, SELFPAY ==
--- NOTE | 2024-09-28 11:28 | MHC.OT.EP ---
[address] [phone] Occupational Therapy Plan of Care Patient Name: Noreen Morrison Date of Evaluation: 09/28/24 Diagnosis: Stiffness if R hand / trigger thumb (R) Pain Location: volar side of thumb pinching Pt reports pain in her R shoulder which she will be seeing the MD for Pain Score: 6 Pain Scale Used: Numeric (0 - 10) Aggravating Factors: Range of motion / twisting / opening jars / writing Alleviating Factors: none reported Assessment: Pt is a R hand dominant female who reports pain and stiffness in her R thumb which she reports most recently has been radiating to her R shoulder (she will be seeing the MD for her shoulder pain). She reports falling a few mos. ago and putting her hand out to catch her fall; she saw the MD and had X-rays taken of her thumb which were negative. She presents today w/ limited thumb ROM and only 10 of IP J flexion, and she is limited in thumb opposition. She also has a positive triggering at MP J w/flexion of her R thumb. Pt would benefit from skilled OT therapy to educate her on jt. 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 Thank you once again for your referral.
== END 2024-10-14 10:59 | disposition home or self-care (01) ==
LOC: HO.OT 08:21
PROVIDERS: PCP Nurse Practitioner Community Health
DX: M25.641 Stiffness of right hand, not elsewhere classified (principal)
CPT/HCPCS: 97110; 97140; 97165; 97530; 97535; 97760

== ENCOUNTER 2024-10-21 08:34 | Outpatient (REF) | payer OTHER, SELFPAY ==
--- NOTE | ~2024-10-21 | XR_ITS ---
EXAMINATION: XR SHOULDER 2 OR MORE VIEWS RIGHT HISTORY: M25.519 - Pain in unspecified shoulder COMPARISON: Comparison is made with the prior examination dated 09/30/2024. FINDINGS: Three views of the right shoulder are submitted. Osseous mineralization is normal. There is no fracture or dislocation. The glenohumeral and acromioclavicular joint spaces are preserved. The soft tissues are unremarkable. XR/XR shoulder RT min 2V IMPRESSION: Unremarkable examination of the right shoulder. Electronically signed by: Galileo Friedman MD 10/21/2024 10:50 AM EST
--- OUTSIDE RECORDS SUMMARY | 2024-10-24 08:46 | XMS_ITS | Encounter Summary ---
Author Organization [employer] [facility] Address [address] [place] [address] [address]t [place] [address] Care Team Providers Care Annealing Operator Name Role Phone Alireza Desai NP Primary Care Provider [phone] Encounter Details Date Type Department Care Team [...] on filedocumented in this encounter Care Teams Annealing Operator Relationship Specialty Start Date End Date Alireza Desai NP [address] [place] [address] PCP - General Internal Medicine 11/07/22 documented as of this encounter
--- OUTSIDE RECORDS SUMMARY | 2024-10-24 08:46 | XMS_ITS | Encounter Summary ---
Author Organization [employer] [facility] Address [address] [facility] [address]t [place] [address] Care Team Providers Care Drafter Geological Name Role Phone Alireza Desai NP Primary Care Provider [phone] Encounter Details Date Type Department Care Team (Late st Contact Info) Description 07/27/[address] [facility] MEDICAL [address] [place] [address] Provider, MD Becky Social History Tobacco Use [...] on filedocumented in this encounter Care Teams Drafter Geological Relationship Specialty Start Date End Date Alireza Desai NP [address] [place] [address] PCP - General Internal Medicine 11/07/22 documented as of this encounter
--- OUTSIDE RECORDS SUMMARY | 2024-10-24 08:46 | XMS_ITS | Clinical Summary ---
Author Organization [employer] [facility] Address [address] [facility] 7t [place] [address] Care Team Providers Care Cotton Dispatcher Name Role Phone Alireza Desai NP Primary Care Provider Allergies Active Allergy Reactions Criticality Noted Date Comments Lamotrigine 10/07/2022 Other reaction(s): Hyper-aggressive Latex 01/06/2020 Other reaction(s): Hives Levofloxacin Unknown 10/07/2022 Penicillamine Rash Low 10/07/2022 Penicillins 01/06/2020 Other reaction(s): Skin irritation [place] Flavoring Agent (Non-Screening) Hives 10/07/2022 ONLY WALNUTS [...] Description 09/03/2024 11:00 AM EST Office Visit [facility] [address] [place] [address] Alireza Desai NP Trigger finger of right thumb (Primary Dx); Hand pain, right 08/19/2024 Telephone [facility] MEDICAL [address] [place] [address] Alireza Desai NP referral 08/15/2024 12:30 PM EST Office Visit [facility] [address] [place] [address] Alireza Desai NP Trigger finger of right [...] Recently Relevant to Health Maintenance Insurance [facility] [facility] Care Teams Cotton Dispatcher Relationship Specialty Start Date End Date Alireza Desai NP [address] [place] [address] PCP - General Internal Medicine 11/07/22
--- OUTSIDE RECORDS SUMMARY | 2024-10-24 08:46 | XMS_ITS | Encounter Summary ---
Author Organization [employer] [facility] Address [address] [facility] 7t [place] [address] Care Team Providers Care Sales Operations Specialist Name Role Phone Alireza Desai NP Primary Care Provider +1- [phone] Reason for Visit * Reason Onset Date Comments referral 08/19/2024 Encounter Details Date Type Department Care Team (Late st Contact Info) Description 08/19/2024 Telephone [place] [facility] MEDICAL [address] [place] [address] Alireza Desai NP [address] [place] [address] referral Social History Tobacco Use Types Packs/Day [...] - 08/24/2024 2:54 PM EST Faxed to [facility] metal smelter. Message sent to patient * Telephone Encounter - Su Villalta - 08/19/2024 2:35 PM EST Azucena from [facility] [phone] called and stated that this patient could not be seenat their facility and has been redirected. They said that the referral needs to go to a different facility. Please advise documented in this encounter Plan of Treatment Not on file documented as of this encounter Visit Diagnoses Not on filedocumented in this encounter Care Teams Sales Operations Specialist Relationship Specialty Start Date End Date Alireza Desai NP [address] [place] [address] PCP - General Internal Medicine 11/07/22 documented as of this encounter
--- OUTSIDE RECORDS SUMMARY | 2024-10-24 08:46 | XMS_ITS | Encounter Summary ---
Author Organization [employer] [facility] Address [address] [place] [address] 7t [place] [address] Care Team Providers Care Groover Operator Name Role Phone Alireza Desai NP Primary Care Provider Encounter Details Date Type Department Care Team (Late st Contact Info) Description 12/16/2022 Orders Only [facility] MEDICAL [address] [place] [address] Provider, Historical, Social History Tobacco Use Types [...] on filedocumented in this encounter Care Teams Groover Operator Relationship Specialty Start Date End Date Alireza Desai NP 70 [place] [address] PCP - General Internal Medicine 11/07/22 documented as of this encounter
--- OUTSIDE RECORDS SUMMARY | 2024-10-24 08:46 | XMS_ITS | Encounter Summary ---
Author Organization [employer] Address [address] [facility] [address] 7t [place] [address] Care Team Providers Care Alumni Secretary Name Role Phone Alireza Desai NP Primary Care Provider [phone]- [phone] Encounter Details Date Type Department Care Team (Late st Contact Info) Description 07/21/2023 Orders Only [facility] MEDICAL [address] [place] [address] Provider, MD Becky Social History Tobacco Use [...] on filedocumented in this encounter Care Teams Alumni Secretary Relationship Specialty Start Date End Date Alireza Desai NP 70 [place] [address] PCP - General Internal Medicine 11/07/22 documented as of this encounter
== END 2024-10-21 08:35 | disposition home or self-care (01) ==
LOC: HO.HOSX 08:34
PROVIDERS: Visit Provider Physician Assistant
DX: M75.101 Unspecified rotator cuff tear or rupture of right shoulder, not specified as traumatic (principal)
CPT/HCPCS: 73030; 99212

== ENCOUNTER 2024-10-21 10:22 | Outpatient (AMB) | payer OTHER, SELFPAY ==
--- NOTE | 2024-10-21 10:32 | A.OFFVIS_ITS ---
Vital Signs 10/21/24 10:35 Height 5 ft Weight 164 lb BMI 32.0 Handedness Right Intake Visit Reasons: New Prob - RT shoulder pain Intake Note: Noreen is a 44 year old right hand dominant female who presents today for a evaluation of her right shoulder pain. Patient reports ongoing pain for a couple of weeks. She mentions that she had a fall back in Jun or July. Patient mentions that her pain is on the lateral aspect of the shoulder. She states that she is not having much pain today but having stillness and her ROM is limited. Patient tried and failed taking NSAIDs. Allergies Penicillins [PENICILLINS] Allergy (Intermediate, Verified 10/21/24 10:37) HIVES levofloxacin [From LEVAQUIN] Allergy (Mild, Verified 10/21/24 10:37) hives cetirizine [Zyrtec] Allergy (Unknown, Verified 10/21/24 10:37) palpitations lamotrigine [LAMOTRIGINE] Allergy (Unknown, Verified 10/21/24 10:37) blurry vision latex [LATEX] Allergy (Unknown, Verified 10/21/24 10:37) HIVES HPI HPI New Prob - RT shoulder pain: Details: Ms. Morrison is a 44 year old right hand dominant female who presents today for a evaluation of right shoulder pain. She reports pain in the right shoulder that occasionally will radiate down to the elbow for the past few weeks. Additionally, she also reports that there have been times where it feels as though the arm is not working properly finish she is unable to perform any motion. During these moments she has to use her left hand actively move her right shoulder and eventually she was able to start performing range of motion on her own. She report that she had a fall back in Jun or July. She states that she is not having much pain today but having stiffness and limited range of motion. Patient tried and failed taking NSAIDs. [facility] Medical History Dizziness Disc degeneration, lumbar Spondylosis of lumbar region without myelopathy or radiculopathy Arthropathy of cervical facet joint Surgical History History of esophagogastroduodenoscopy (EGD) Hx of prior ablation treatment History of section History of bilateral tubal ligation Family History Father No problems noted. Mother No problems noted. Brother No problems noted. Brother No problems noted. Brother No problems noted. Brother No problems noted. Brother No problems noted. Brother No problems noted. Sister No problems noted. Sister No problems noted. Sister No problems noted. Son No problems noted. Son No problems noted. Son No problems noted. Daughter No problems noted. Daughter No problems noted. Social History Household Members Other:: 5 kids, single Alcohol intake: never Patient Tobacco Use Status: Never used Tobacco e-Cigarette/Vaping Use: Never Used Current occupational status: unemployed and disabled Review of Systems Const All systems reviewed & are unremarkable except as noted in HPI and below Physical Exam Vital Signs: BMI result Body Mass Index 32.0 Const General: cooperative, healthy appearing and no acute distress Resp Effort & Inspection: normal respiratory effort and able to speak in complete sentences Cardio Rate: regular rate Peripheral pulses: Peripheral pulses 2+ throughout Skin Lesions: no lesions Rashes: no rashes Extrem Other: Right shoulder: Forward flexion and abduction to end range. No pain with cross- body reach. 3/5 strength with empty can. Negative drop arm. NVI. Assessment & Plan Assessment & Plan (1) Painful arc syndrome of right shoulder: Code(s): M75.101 - Unspecified rotator cuff tear or rupture of right shoulder, not specified as traumatic Category: Medical Plan Ms. Morrison is a 44 year old right hand dominant female who presents today for a evaluation of right shoulder pain. She reports pain in the right shoulder that occasionally will radiate down to the elbow for the past few weeks. Additionally, she also reports that there have been times where it feels as though the arm is not working properly finish she is unable to perform any motion. During these moments she has to use her left hand actively move her right shoulder and eventually she was able to start performing range of motion on her own. She report that she had a fall back in Jun or July. She states that she is not having much pain today but having stiffness and limited range of motion. Patient tried and failed taking NSAIDs. While in the office today, we discussed the role of physical therapy. The patient is willing to attend. Should her symptoms not improve and or worsen the next step would be MRI imaging to further evaluate the integrity of the right shoulder and surrounding structures. Should she have these episodes of mechanical dysfunction causing her not to be able to engage in muscular activity and moving the right upper extremity an EMG may be considered at that time. Her follow-up will be after 6 weeks of physical therapy, sooner if needed. X-rays of the right shoulder which were obtained while in the office today and were reviewed by me, Venus Ruggiero PA-C, and are negative for any acute fracture dislocation. Orders: Orders XR shoulder RT min 2V Today M25.519 - Pain in unspecified shoulder Coding Level of Care Code New Pt Level 3 (45712) Diagnoses Painful arc syndrome of right shoulder M75.101
[2024-10-21 10:35] VITALS: BMI 32.0
--- OUTSIDE RECORDS SUMMARY | 2024-10-21 11:27 | XMS_ITS | Encounter Summary ---
Author Organization [employer] Address [address] [place] [address] Care Team Providers Care Regional Branch Manager Name Role Phone Alireza Desai NP Primary Care Provider [phone] Reason for Visit * Reason Onset Date Comments referral 08/19/2024 Encounter Details Date Type Department Care Team (Late st Contact Info) Description 08/19/2024 Telephone [place] [facility] MEDICAL [address] [place] [address] Alireza Desai NP [address] [place] [address] referral Social History Tobacco Use Types Packs/Day Years Used Date Smoking Tobacco: Never Smokeless Tobacco: Never Alcohol Use Standard Drinks/Week Comments Never 0 (1 standard drink = 0.6 oz pur e alcohol) PHQ-2 Answer Date Recorded Patient Health Questionnaire-2 Score 0 11/10/2022 Housing Stability Answer Date Recorded What is your housing situation today? I have wes cobos 07/03/[address] you li ve. Do you have problems with any of the following? None of the above 07/03/2023 Food Insecurity Answer Date Recorded Within the past 12 months, y ou worried that your food would run out before you got money to buy more: Never True 07/03/2023 Within the past 12 months,th e food you bought just didn't last and you didn't have enough money to get more: Never True Transportation Answer Date Recorded In the past 12 months, has l ack of transportation kept you from medical appts, meetings, work or from getting things needed for daily living? No 07/03/2023 Utilities Answer Date Recorded In the past 12 months, has t he electric, gas, oil or water company threatened to shut off services in your home? No 07/03/2023 Depression Answer Date Recorded Patient Health Questionnaire-2 Score 0 11/10/2022 Comments Unknown Sex and Gender Information Value Date Recorded Sex Assigned at Female 07/16/2022 4:09 PM EDT Legal Sex Female 8:37 PM EDT Gender Identity Choose not to disclose 1:44 PM EST Sexual Orientation Choose not to disclose 2022 1:44 PM EST documented as of this encounter Miscellaneous Notes * Telephone Encounter - Pamela Aguilar - 08/24/2024 2:54 PM EST [facility]axed to [facility] bulb assembler. Message sent to patient * Telephone Encounter - Su Villalta - 08/19/2024 2:35 PM EST Azucena from [facility] [phone] called and stated that this patient could not be seenat their facility and has been redirected. They said that the referral needs to go to a different facility. Please advise documented in this encounter Plan of Treatment Not on file documented as of this encounter Visit Diagnoses Not on filedocumented in this encounter Care Teams Regional Branch Manager Relationship Specialty Start Date End Date Alireza Desai NP [address] [place] [address] PCP - General Internal Medicine 11/07/22 documented as of this encounter
--- OUTSIDE RECORDS SUMMARY | 2024-10-21 11:27 | XMS_ITS | Encounter Summary ---
Author Organization [employer] Address [address] [place] [address] Care Team Providers Care Transitions Rn Care Coordinator Name Role Phone Alireza Desai NP Primary Care Provider [phone] Encounter Details Date Type Department Care Team (Late st Contact Info) Description 07/21/2023 Orders Only [facility] MEDICAL [address] [place] [address] Provider, MD Becky Social History Tobacco Use Types Packs/Day Years Used Date Smoking Tobacco: Never Smokeless Tobacco: Never Alcohol Use Standard Drinks/Week Comments Never 0 (1 standard drink = 0.6 oz pur e alcohol) PHQ-2 Answer Date Recorded Patient Health Questionnaire-2 Score 0 11/10/2022 Housing Stability Answer Date Recorded What is your housing situation today? I have wesana lilia cobos 07/03/[address] you [...] EDT Gender Identity Choose not to disclose 3 1:44 PM EST Sexual Orientation Choose not to disclose 2022 1:44 PM EST documented as of this encounter Plan of Treatment Not on file documented as of this encounter Procedures Procedure Name Priority Date/Time Associated Diagnosis Comments HM COLONOSCOPY Routine 01/06/2023 documented in this encounter Results * Hm Colonoscopy (01/06/2023) Historical Provider HEALTH MAINTENANCE Final Result documented in this encounter Visit Diagnoses Not on filedocumented in this encounter Care Teams Transitions Rn Care Coordinator Relationship Specialty Start Date End Date Alireza Desai NP [address] [place] [address] PCP - General Internal Medicine 11/07/22 documented as of this encounter
--- OUTSIDE RECORDS SUMMARY | 2024-10-21 11:27 | XMS_ITS | Encounter Summary ---
Author Organization [employer] [facility] Address [address] [place] [address] [address] [place] [address] Care Team Providers Care Log Buncher Name Role Phone Alireza Desai NP Primary Care Provider Encounter Details Date Type Department Care Team (Latest Contact Info) Description 05/30/2021 Abstract [facility] CONVERSIONS Dental, Provider, DDS Social History Tobacco Use Types Packs/Day Years Used Date Smoking Tobacco: Never Assessed Comments Unknown Sex and Gender Information Value [...] on filedocumented in this encounter Care Teams Log Buncher Relationship Specialty Start Date End Date Alireza Desai NP [address] [place] [address] PCP - General Internal Medicine 11/07/22 documented as of this encounter
--- OUTSIDE RECORDS SUMMARY | 2024-10-21 11:27 | XMS_ITS | Clinical Summary ---
Author Organization [employer] [facility] Address [address] [address] [place] [address] Care Team Providers Care Pipelines Supervisor Name Role Phone Alireza Desai NP Primary Care Provider [phone] Allergies Active Allergy Reactions Criticality Noted Date Comments Lamotrigine 10/07/2022 Other reaction(s): Hyper-aggressive Latex 01/06/2020 Other reaction(s): Hives Levofloxacin Unknown 10/07/2022 Penicillamine Rash Low 10/07/2022 Penicillins 01/06/2020 Other reaction(s): Skin irritation Black [place] Flavoring Agent (Non-Screening) Hives 10/07/2022 ONLY WALNUTS ALLERGY TO [place] = hives Cetirizine Anaphylaxis High 01/08/2023 Medications meclizine (Antivert) 25 MG tabletIndications:Benig n paroxysmal positional vertigo, unspecified laterality Take 1 tablet (25 mg) by mouth if needed in the morning, at noon, and at bedtime for dizziness. 30 tablet 1 023 Active acetaminophen (Tylenol 8 Hour) 650 MG ER tabletIndications:Chron ic nonintractable headache, unspecified headache type Take 1 tablet (650 mg) by mouth every 8 (eight) hours if needed for mild pain. Do not crush, chew, or split. 90 tablet 1 023 Active Additional Information Patient not taking.Reported on 11/09/2023 amitriptyline (Elavil) 25 MG tabletIndications:Chron ic nonintractable headache, unspecified headache type Take 1 tablet (25 mg) by mouth at bedtime. 90 tablet 1 024 Active atorvastatin (Lipitor) 20 MG tabletIndications:Pure hypercholesterolemia Take 1 tablet (20 mg) by mouth in the morning. 90 tablet 3 024 Active Active Problems Problem Noted Date Diagnosed Date Bipolar disorder 10/08/2022 Constipation 10/08/2022 Fibrocystic changes of left breast 10/08/2022 Hyperlipidemia 10/08/2022 Irritable bowel syndrome 10/08/2022 Obesity (BMI 30.0-34.9) 10/08/2022 Myopia of both eyes 10/08/2022 PTSD (post-traumatic stress disorder) 10/08/2022 Gastroesophageal reflux disease 10/07/2022 Fibromyalgia 10/07/2022 Encounters Date Type Department Care Team Description 09/03/2024 11:00 AM EST Office Visit [facility] [address] [place] [address] Alireza Desai NP Trigger finger of right thumb (Primary Dx); Hand pain, right 08/19/2024 Telephone [facility] MEDICAL [address] [place] [address] Alireza Desai NP referral 08/15/2024 12:30 PM EST Office Visit [facility] [address] [place] [address] Alireza Desai NP Trigger finger of right thumb (Primary Dx); Contusion of right hand, initial encounter; Pelvic adhesions from Last 3 Months Immunizations Name Administration Dates Next Due Hep A / Hep B 03/03/2017,12/25/2016 Hep A, Adult 03/03/2017,12/25/2016 Hep B, adult 03/03/2017,12/25/2016 Influenza, IIV3, injectable 07/17/2021, 2 TD (adult), 2 Lf tetanus tox oid, preservative free, adsorbed 07/10/2008 Tdap 01/13/2022,01/10/2010 Family History Medical History Relation Name Comments Glaucoma Maternal Grandmother Cataracts Mother Glaucoma Mother Relation Name Status Comments Maternal Grandmother Mother Social History Tobacco Use Types Packs/Day Years Used Date Smoking Tobacco: Never Smokeless Tobacco: Never Tobacco Cessation:Counseling Given: Not Answered Alcohol Use Standard Drinks/Week Comments Never 0 [...] not to disclose 2022 1:44 PM EST Last Filed Vital Signs Vital Sign Reading Time Taken Comments Blood Pressure 129/84 11/09/2023 11:22 AM EST Pulse 77 11/09/2023 11:22 AM EST Temperature 36.2 ??C (97.2 ??F) 11/09/2023 11:[address] Respiratory Rate - - Oxygen Saturation 95% 11/09/2023 11:22 AM EST Inhaled Oxygen Concentration - - Weight 75.6 kg (166 lb 9.6 oz) 11/09/2023 11:22 AM EST Height 152.4 cm (5') 11/10/2022 9:46 AM EST Body Mass Index 32.54 11/10/2022 9:46 AM EST Plan of Treatment Health Maintenance Due Date Last Done Comments CT Colonography 1978 Dental Prophylaxis 1978 FIT DNA/Cologuard 1978 FIT 1978 FOBT 1978 HIV Screening 1978 Sigmoidoscopy 1978 Alcohol/Substance Use Screening 1990 Family Planning (PISQ) 1993 Hepatitis C Screening 1996 Pap Smear 1999 Cervical Cancer Screening 2008 HPV/Cotest 2008 Hepatitis B Vaccines (3 of 3 - 19+ 3-dose series) 06/26/2017 03/03/2017, 03/03/2017, 12/25/2016, Additional history exists Dental Oral Exam 11/28/2021 05/30/2021 Dental X-Ray: Bitewings 05/31/2022 05/30/2021 Depression Screening 11/10/2023 11/10/2022, 11/10/19 SDOH Screening 11/10/2023 11/10/2022 COVID-19 Vaccine ( season) 2024 Influenza Vaccine (#1) 2024 07/17/2021, 2001 Dental X-Ray: Full Mouth 05/31/2024 05/30/2021 Tobacco Screening 12/15/2024 12/16/2023 Mammogram 12/16/2024 12/16/2022, 12/13/2022 Zoster Vaccines (1 of 2) 2028 DTaP/Tdap/Td Vaccines (3 - Td or Tdap) 01/14/2032 01/13/2022, 01/10/2010, 07/10/2008 Colonoscopy 01/06/2033 01/06/2023 Colorectal Cancer Screening 01/06/2033 RSV Patients and Patients Aged 60 years or older (1 - 1-dose 75+ series) 2053 Hepatitis A Vaccines Aged Out 03/03/2017, 03/03/2017, 12/25/2016, Additional history exists No longer eligible based on patient's age to complete this topic HIB Vaccines Aged Out No longer eligi ble based on patient's age to complete this topic HPV Vaccines Aged Out No longer eligi ble based on patient's age to complete this topic IPV Vaccines Aged Out No longer eligi ble based on patient's age to complete this topic Meningococcal Vaccine Aged Out No glory more eligible based on patient's age to complete this topic Pneumococcal Vaccine: Pediatrics (0 to 5 Years) and At-Risk Patients (6 to 49) Years) Aged Out No longer eligible based on patient's age to complete this topic RSV under 20 months Aged Out No longe r eligible based on patient's age to complete this topic Rotavirus Vaccines Aged Out No longer eligible based on patient's age to complete this topic Procedures Procedure Name Priority Date/Time Associated Diagnosis Comments AMB REFERRAL TO ORTHOPAEDIC SURGERY Routine 09/19/2024 Trigger finger of right thumb HM COLONOSCOPY Routine 01/06/2023 HM MAMMOGRAPHY Routine 12/16/2022 DIAGNOSTIC - DIAGNOSTIC IMAGING - INTRAORAL - COMPREHENSIVE SERIES OF RADIOGRAPHIC IMAGES Routine 05/30/2021 12:00 AM EDT COMPREHENSIVE ORAL EVALUATION - NEW OR ESTABLISHED PATIENT Routine 05/30/2021 12:00 AM EDT from Last 3 Months or Most Recently Relevant to Health Maintenance Results * Referral to Orthopaedic Surgery (09/19/2024) Alireza Desai NP OUTPATIENT REFERRAL ORDERABL ES Final Result * Colonoscopy (01/06/2023) Historical Provider HEALTH MAINTENANCE Final Result * Mammography (12/16/2022) Anatomical Region Laterality Modality Other Historical Provider MD HEALTH MAINTENANCE Final Result from Last 3 Months or Most Recently Relevant to Health Maintenance Insurance [facility] Care Teams Pipelines Supervisor Relationship Specialty Start Date End Date Alireza Desai NP [address] [place] [address] PCP - General Internal Medicine 11/07/22
--- OUTSIDE RECORDS SUMMARY | 2024-10-21 11:27 | XMS_ITS | Encounter Summary ---
Author Organization [employer] [facility] Address [address] [facility] 7t [place] [address] Care Team Providers Care Rn Dermatology Name Role Phone Alireza Desai NP Primary Care Provider Encounter Details Date Type Department Care Team (Late st Contact Info) Description 12/16/2022 Orders Only [facility] MEDICAL [address] [place] [address] Provider, Historical, Social History Tobacco Use Types Packs/Day Years Used Date Smoking Tobacco: Never Smokeless Tobacco: Never Alcohol Use Standard Drinks/Week Comments Never 0 (1 standard drink = 0.6 oz pur e alcohol) PHQ-2 Answer Date Recorded Patient Health Questionnaire-2 Score 0 11/10/2022 Depression Answer Date Recorded Patient Health Questionnaire-2 [...] Name Priority Date/Time Associated Diagnosis Comments HM MAMMOGRAPHY Routine 12/16/2022 documented in this encounter Results * Hm Mammography (12/16/2022) Anatomical Region Laterality Modality Other us Historical Provider HEALTH MAINTENANCE Final Result documented in this encounter Visit Diagnoses Not on filedocumented in this encounter Care Teams Rn Dermatology Relationship Specialty Start Date End Date Alireza Desai NP [address] [place] [address] PCP - General Internal Medicine 11/07/22 documented as of this encounter
--- OUTSIDE RECORDS SUMMARY | 2024-10-21 11:27 | XMS_ITS | Encounter Summary ---
Author Organization [employer] [facility] Address [address] [facility] [address]t [place] [address] Care Team Providers Care English Language Learner Tutor Name Role Phone Alireza Desai NP Primary Care Provider [phone] Encounter Details Date Type Department Care Team (Late st Contact Info) Description 07/27/2023 Orders Only [facility] MEDICAL [address] [place] [address] Provider, MD Becky Social History Tobacco Use [...] Procedure Name Priority Date/Time Associated Diagnosis Comments MAMMOGRAPHY Routine 12/13/2022 documented in this encounter Results * Hm Mammography (12/13/2022) Anatomical Region Laterality Modality Other Historical Provider HEALTH MAINTENANCE Final Result documented in this encounter Visit Diagnoses Not on filedocumented in this encounter Care Teams English Language Learner Tutor Relationship Specialty Start Date End Date Alireza Desai NP [address] [place] [address] PCP - General Internal Medicine 11/07/22 documented as of this encounter
== END 2024-10-21 10:59 | disposition home or self-care (01) ==
PROVIDERS: PCP Nurse Practitioner Community Health; Visit Provider Physician Assistant
DX: M75.101 Unspecified rotator cuff tear or rupture of right shoulder, not specified as traumatic (principal)
CPT/HCPCS: 99213

== ENCOUNTER → 2024-10-21 10:23 | Outpatient (BNV) | payer OTHER, SELFPAY | PROVIDERS: Visit Provider Radiology Diagnostic Radiology | DX: M25.511 Pain in right shoulder (principal) | CPT/HCPCS: 73030 ==

== ENCOUNTER 2024-10-24 13:24 | Outpatient (REF) | payer OTHER, SELFPAY ==
[2024-10-24 13:45] LABS: MANUAL DIFF FLAG NO
[2024-10-24 14:12] LABS: Basophils Percent Auto 0.6 % (0-2); Eosinophils Absolute Auto 0.1 X10*3/uL (0.0-0.4); Eosinophils Percent Auto 0.8 % (0-4); Hematocrit 39.1 % (37.0-47.0); Hemoglobin 13.4 g/dl (12.0-16.0); Imm Gran Abs Auto 0.02 X10*3/uL (0.00-0.03); Imm Gran Pct Auto 0.3 % (0.0-0.4); Lymphocytes Absolute Auto 1.7 X10*3/uL (1.2-4.9); Lymphocytes Percent Auto 26.3 % (20-40); Mean Corpuscular HGB Conc 34.3 g/dl (31.0-35.0); Mean Corpuscular Hemoglobin 29.1 pg (27.0-33.0); Mean Platelet Volume 10.6 fL (9.4-12.3); Monocytes Absolute Auto 0.4 X10*3/uL (0.1-1.2); Monocytes Percent Auto 5.7 % (2-11); Neutrophils Absolute Auto 4.3 x10*3/uL (2.0-8.3); Neutrophils Percent Auto 66.3 % (45-73); Platelet Count 201 X10*3/uL (160-400); Red Cell Distribution Width 12.6 % (11.0-16.0); White Blood Count 6.5 X10*3/uL (4.8-10.8)
--- OUTSIDE RECORDS SUMMARY | 2024-10-24 14:27 | XMS_ITS | Encounter Summary ---
Author Organization [facility] Address [address] [facility] 7t [place] [address] Care Team Providers Care Home Care Liaison Name Role Phone Alireza Desai NP Primary Care Provider +1- [phone] Encounter Details Date Type Department Care Team (Late st Contact Info) Description 07/27/2023 Orders Only [facility] MEDICAL [address] [place] [address] Provider, MD Becky Social History Tobacco Use [...] on filedocumented in this encounter Care Teams Home Care Liaison Relationship Specialty Start Date End Date Alireza Desai NP [address] [place] [address] PCP - General Internal Medicine 11/07/22 documented as of this encounter
--- OUTSIDE RECORDS SUMMARY | 2024-10-24 14:27 | XMS_ITS | Encounter Summary ---
Author Organization [employer] [facility] Address [address] [place] [address] 7t [place] [address] Care Team Providers Care Fish Boning Machine Feeder Name Role Phone Alireza Desai NP Primary [...] on filedocumented in this encounter Care Teams Fish Boning Machine Feeder Relationship Specialty Start Date End Date Alireza Desai NP 70 [place] [address] PCP - General Internal Medicine 11/07/22 documented as of this encounter
--- OUTSIDE RECORDS SUMMARY | 2024-10-24 14:27 | XMS_ITS | Encounter Summary ---
Author Organization [employer] Address [address] [facility] [address] 7t [place] [address] Care Team Providers Care Mobile Battery Technician Name Role Phone Alireza Desai NP Primary Care Provider +1- [phone] Encounter Details Date Type Department Care Team (Late st Contact Info) Description 07/21/2023 Orders Only [facility] MEDICAL [address] [place] [address] Provider, MD Becky Social History Tobacco Use [...] on filedocumented in this encounter Care Teams Mobile Battery Technician Relationship Specialty Start Date End Date Alireza Desai NP 70 [facility] [place] [address] PCP - General Internal Medicine 11/07/22 documented as of this encounter
--- OUTSIDE RECORDS SUMMARY | 2024-10-24 14:27 | XMS_ITS | Clinical Summary ---
Author Organization [facility] Address [address] [facility] 7t [place] [address] Care Team Providers Care Focus Puller Name Role Phone Alireza Desai NP Primary Care Provider Allergies Active Allergy Reactions Criticality Noted Date Comments Lamotrigine 10/07/2022 Other reaction(s): Hyper-aggressive Latex 01/06/2020 Other reaction(s): Hives Levofloxacin Unknown 10/07/2022 Penicillamine Rash Low 10/07/2022 Penicillins 01/06/2020 Other reaction(s): Skin irritation Black [place] Flavoring Agent (Non-Screening) Hives 10/07/2022 ONLY [place]S [...] Office Visit [facility] [address] [place] [address] Alireza Desai NP Trigger finger of right thumb (Primary Dx); Hand pain, right 08/19/2024 Telephone [facility] MEDICAL [address] [place] [address] Alireza Desai NP referral 08/15/2024 12:30 PM EST Office Visit [facility] 70 [place] [address] Alireza Desai NP Trigger finger of right [...] Recently Relevant to Health Maintenance Insurance [employer] [facility] Care Teams Focus Puller Relationship Specialty Start Date End Date Alireza Desai NP 70 [place] [address] PCP - General Internal Medicine 11/07/22
--- OUTSIDE RECORDS SUMMARY | 2024-10-24 14:28 | XMS_ITS | Encounter Summary ---
Author Organization [employer] [facility] Address [address] [facility] [facility] [address] 7t [place] [address] Care Team Providers Care Salad Maker Name Role Phone Alireza Desai NP Primary Care Provider [phone]- [phone] Reason for Visit * Reason Onset Date Comments referral 08/19/2024 Encounter Details Date Type Department Care Team (Late st Contact Info) Description 08/19/2024 Telephone [place] [facility] MEDICAL [address] [place] [address] Alireza Desai NP 70 [place] [address] referral Social History Tobacco Use Types Packs/Day [...] - 08/24/2024 2:54 PM EST Faxed to [facility] finishing machine operator automatic. Message sent to patient * Telephone Encounter - Su Villalta - 08/19/2024 2:35 PM EST Azucena from [facility] [phone] called and stated that this patient could not be seenat their facility and has been redirected. They said that the referral needs to go to a different facility. Please advise documented in this encounter Plan of Treatment Not on file documented as of this encounter Visit Diagnoses Not on filedocumented in this encounter Care Teams Salad Maker Relationship Specialty Start Date End Date Alireza Desai NP 70 [place] [address] PCP - General Internal Medicine 11/07/22 documented as of this encounter
--- OUTSIDE RECORDS SUMMARY | 2024-10-24 14:28 | XMS_ITS | Encounter Summary ---
Author Organization [employer] [facility] Address [address] [place] [address] 7t [place] [address] Care Team Providers Care Metal Gauge Maker Name Role Phone Alireza Desai NP Primary Care Provider Encounter Details Date Type Department Care Team (Late st Contact Info) Description 12/16/2022 Orders Only [facility] MEDICAL [address] [place] [address] Provider, Historical, Social History Tobacco Use Types [...] on filedocumented in this encounter Care Teams Metal Gauge Maker Relationship Specialty Start Date End Date Alireza Desai NP 70 [place] [address] PCP - General Internal Medicine 11/07/22 documented as of this encounter
[2024-10-24 14:55] LABS: Erythrocyte Sedimentation Rate 38 MM/HR (0-20)
[2024-10-24 14:56] LABS: Anion Gap 9 (12-20); Blood Urea Nitrogen 9 mg/dL (9-16); Calcium 9.5 mg/dL (8.4-10.2); Carbon Dioxide 27 mmol/L (22-29); Chloride 110 mmol/L (96-108); Estimated Glomerular Filt Rate > 60; Glucose Random 103 mg/dL (60-115); Sodium 142 mmol/L (135-145)
[2024-10-24 15:13] LABS: TSH reflex Free T4 0.89 uIU/mL (0.32-4.0)
[2024-10-24 15:25] LABS: Folate 10.4 ng/mL (> or = 4.0); Vitamin B12 537 pg/mL (200-900)
== END 2024-10-24 13:25 | disposition home or self-care (01) ==
LOC: HO.LAB 13:24
PROVIDERS: PCP Nurse Practitioner Community Health; Visit Provider Registered Nurse
DX: G31.84 Mild cognitive impairment of uncertain or unknown etiology (principal); G43.109 Migraine with aura, not intractable, without status migrainosus
CPT/HCPCS: 36415; 80048; 82607; 82746; 84443; 85025; 85652

== ENCOUNTER 2024-11-08 12:56 | Outpatient (AMB) | payer OTHER, SELFPAY ==
--- NOTE | 2024-11-08 13:00 | MHC.OFFVIS ---
Intake Visit Reasons: OV - Right Thumb Stiffness Intake Note: Noreen is a 44 year old right hand dominant female who presents today for a follow up of her Right Thumb Stiffness. At last visit patient was offered an injection, but she declined. She was referred for OT which she did attend but was non compliant with attendance and was ultimately discharged. Patient reports that her thumb is still stiff and painful. She is not taking anything for her pain. Allergies Penicillins [PENICILLINS] Allergy (Intermediate, Verified 10/21/24 10:37) HIVES levofloxacin [From LEVAQUIN] Allergy (Mild, Verified 10/21/24 10:37) hives cetirizine [Zyrtec] Allergy (Unknown, Verified 10/21/24 10:37) palpitations lamotrigine [LAMOTRIGINE] Allergy (Unknown, Verified 10/21/24 10:37) blurry vision latex [LATEX] Allergy (Unknown, Verified 10/21/24 10:37) HIVES HPI HPI OV - Right Thumb Stiffness: Details: Noreen is a 44 year old right hand dominant female who presents today for a follow up of her Right Thumb Stiffness. At last visit patient was offered an injection, but she declined. She was referred for OT which she did attend but was non compliant with attendance and was ultimately discharged. Patient reports that her thumb is still stiff and painful. She is not taking anything for her pain. 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 Mother No problems noted. Brother No problems noted. Brother No problems noted. Brother No problems noted. Brother No problems noted. Brother No problems noted. Brother No problems noted. Sister No problems noted. Sister No problems noted. Sister No problems noted. Son No problems noted. Son No problems noted. Son No problems noted. Daughter No problems noted. Daughter No problems noted. Social History Household Members Other:: 5 kids, single Alcohol intake: never Patient Tobacco Use Status: Never used Tobacco e-Cigarette/Vaping Use: Never Used Current occupational status: unemployed and disabled Review of Systems Const All systems reviewed & are unremarkable except as noted in HPI and below Physical Exam Extrem Other: Patient is alert, oriented, and in no acute distress. Neuro: Normal sensation of the tips of all digits of the right hand at this time Vascular: Cap refill brisk Pain: Patient reports some minor tenderness to palpation at the level of the A1 gael of the right thumb No pain with range of motion of the right hand ROM: Patient is only able to flex the IP joint of the right thumb to neutral, unable to flex beyond this There is visible and palpable locking and catching of the right thumb Not due to pain, physically unable to do so IP joint of the right thumb was able to be passively flex to approximately 90 degrees without difficulty Patient is able to flex and extend all other digits of the right hand fully and without difficulty Skin: No lacerations or abrasions. General: No ecchymosis, erythema, or evidence of infection. Psych: Appears grossly normal Affect normal Attitude cooperative Assessment & Plan Assessment & Plan (1) Trigger thumb, right thumb: Code(s): M65.311 - Trigger thumb, right thumb Category: Medical Plan 1. Right trigger thumb Patient is educated about this condition Patient was educated about the treatment options available Patient is educated on the risks and benefits of surgery for right trigger thumb release, as well as the preop and postoperative recovery periods At this time, patient states she is still uninterested in any injections or surgical intervention Patient does state that she may eventually become interested in surgery, but is unable to do so at this time Patient was educated she should follow-up with us if she ever becomes interested in the treatments Patient will follow-up as needed with any acute concerns Coding Level of Care Code Est Pt Level 4 (44240) Diagnoses Trigger thumb, right thumb M65.311
--- OUTSIDE RECORDS SUMMARY | 2024-11-08 15:47 | XMS_ITS | Encounter Summary ---
Author Organization [employer] Address [address] [facility] [facility] 7t [place] [address] Care Team Providers Care Educational Audiologist Name Role Phone Alireza Desai NP Primary Care Provider [phone]- [phone] Encounter Details Date Type Department Care Team (Late st Contact Info) Description 07/21/[address] [facility] MEDICAL [address] [place] [address] Provider, MD Becky Social History Tobacco Use [...] on filedocumented in this encounter Care Teams Educational Audiologist Relationship Specialty Start Date End Date Alireza Desai NP 70 [place] [address] PCP - General Internal Medicine 11/07/22 documented as of this encounter
--- OUTSIDE RECORDS SUMMARY | 2024-11-08 15:48 | XMS_ITS | Encounter Summary ---
Author Organization [employer] [facility] Address [address] [place] [address] 7t [place] [address] Care Team Providers Care Patient Office Rep Name Role Phone Alireza Desai NP Primary Care Provider [phone] Encounter Details Date Type Department Care Team [...] on filedocumented in this encounter Care Teams Patient Office Rep Relationship Specialty Start Date End Date lAireza Desai NP 70 [place] [address] PCP - General Internal Medicine 11/07/22 documented as of this encounter
--- OUTSIDE RECORDS SUMMARY | 2024-11-08 15:48 | XMS_ITS | Encounter Summary ---
Author Organization [employer] [facility] Address [address] 7t [place] [address] Care Team Providers Care Drilling Foreman Name Role Phone Alireza Desai NP Primary Care Provider [phone]- [phone] Reason for Visit * Reason Onset Date Comments referral 08/19/2024 Encounter Details Date Type Department Care Team (Late st Contact Info) Description 08/19/2024 Telephone [place] [facility] MEDICAL [address] [place] [address] Alireza Desai NP [address] [place] [address] referral Social History Tobacco Use Types Packs/Day [...] - 08/24/2024 2:54 PM EST Faxed to [facility] car painter. Message sent to patient * Telephone Encounter - Su Villalta - 08/19/2024 2:35 PM EST Azucena from [facility] [phone] called and stated that this patient could not be seenat their facility and has been redirected. They said that the referral needs to go to a different facility. Please advise documented in this encounter Plan of Treatment Not on file documented as of this encounter Visit Diagnoses Not on filedocumented in this encounter Care Teams Drilling Foreman Relationship Specialty Start Date End Date Alireza Desai NP [address] [place] [address] PCP - General Internal Medicine 11/07/22 documented as of this encounter
--- OUTSIDE RECORDS SUMMARY | 2024-11-08 15:48 | XMS_ITS | Encounter Summary ---
Author Organization [employer] [facility] Address [address] [place] [address] 7t [place] [address] Care Team Providers Care Aerographer Name Role Phone Alireza Desai NP Primary Care Provider [phone] Encounter Details Date Type Department Care Team (Late st Contact Info) Description 12/16/2022 Orders Only [facility] MEDICAL [address] [place] [address] Provider, Historical, Social History Tobacco Use Types [...] on filedocumented in this encounter Care Teams Aerographer Relationship Specialty Start Date End Date Alireza Desai NP 70 [place] [address] PCP - General Internal Medicine 11/07/22 documented as of this encounter
--- OUTSIDE RECORDS SUMMARY | 2024-11-08 15:48 | XMS_ITS | Encounter Summary ---
Author Organization [facility] Address [address] [facility] 7t [place] [address] Care Team Providers Care Administrative Judge Name Role Phone Alireza Desai NP Primary Care Provider [phone]- [phone] Encounter Details Date Type Department Care Team (Late st Contact Info) Description 07/27/2023 Orders Only [facility] MEDICAL [address] [place] [address] Provider, MD Becky Social History Tobacco Use [...] on filedocumented in this encounter Care Teams Administrative Judge Relationship Specialty Start Date End Date Alireza Desai NP 70 [place] [address] PCP - General Internal Medicine 11/07/22 documented as of this encounter
--- OUTSIDE RECORDS SUMMARY | 2024-11-08 15:48 | XMS_ITS | Clinical Summary ---
Author Organization [employer] [facility] Address [address] [facility] 7t [place] [address] Care Team Providers Care Oracle Fusion Developer Name Role Phone Alireza Desai NP Primary Care Provider Allergies Active Allergy Reactions Criticality Noted Date Comments Lamotrigine 10/07/2022 Other reaction(s): Hyper-aggressive Latex 01/06/2020 Other reaction(s): Hives Levofloxacin Unknown 10/07/2022 Penicillamine Rash Low 10/07/2022 Penicillins 01/06/2020 Other reaction(s): Skin irritation Black [place] Flavoring Agent (Non-Screening) Hives 10/07/2022 ONLY [place] [...] Description 09/03/2024 11:00 AM EST Office Visit [facility] [address] [place] [address] Alireza Desai NP Trigger finger of right thumb (Primary Dx); Hand pain, right 08/19/2024 Telephone [facility] MEDICAL [address] [place] [address] Alireza Desai NP referral 08/15/2024 12:30 PM EST Office Visit [facility] [address] [place] [address] Alireza Desai NP Trigger finger of right [...] COLONOSCOPY Routine 01/06/2023 HM MAMMOGRAPHY Routine 12/16/2022 INTRAORAL - COMPLETE SERIES OF RADIOGRAPHIC IMAGES Routine 05/30/2021 12:00 AM EDT COMPREHENSIVE ORAL EVALUATION - NEW OR ESTABLISHED PATIENT Routine 05/30/2021 12:00 AM EDT from Last 3 Months or Most Recently Relevant to Health Maintenance Results * Referral to Orthopaedic Surgery (09/19/2024) Alireza Desai NP OUTPATIENT REFERRAL ORDERABL ES Final Result * Colonoscopy (01/06/2023) Historical Provider HEALTH MAINTENANCE Final Result * Hm Mammography (12/16/2022) Anatomical Region Laterality Modality Other Historical Provider MD HEALTH MAINTENANCE Final Result from Last 3 Months or Most Recently Relevant to Health Maintenance Insurance [facility] C[facility] Care Teams Oracle Fusion Developer Relationship Specialty Start Date End Date Alireza Desai NP [address] [place] [address] PCP - General Internal Medicine 11/07/22
== END 2024-11-08 13:11 | disposition home or self-care (01) ==
PROVIDERS: PCP Nurse Practitioner Community Health
DX: M65.311 Trigger thumb, right thumb (principal)
CPT/HCPCS: 99214

== ENCOUNTER → 2024-11-08 12:56 | Outpatient (BNVA) | payer OTHER, SELFPAY | PROVIDERS: PCP Nurse Practitioner Community Health | DX: M65.311 Trigger thumb, right thumb (principal) | CPT/HCPCS: 99212 ==

== ENCOUNTER 2024-12-15 11:16 | Outpatient (RCR) | payer OTHER, SELFPAY ==
--- NOTE | 2024-12-15 11:43 | MHC.PT.EP ---
[facility] [place] Office [place] Office [place] Office [address] [phone] F: [phone] F: [phone] F: [phone] F: [phone] Physical Therapy Plan of Care Date of Evaluation: 12/15/24 Date of Surgery: NA Diagnosis: Unspecified rotator cuff tear or rupture of R shoulder Assessment: Noreen is a 44 year old female who is referred to PT for Unspecified rotator cuff tear or rupture of R shoulder . She initially stated not remembering how long she has had pain for and CRISTEL due to memory issues however after about 15 minutes she stated she has had pain in R shoulder for the last 5 months following a fall in which she used B UE to break the fall. On PT examination she presented with mild TTP over R supraspinatus, R shoulder gross ROM WNL, decreased strength of R shoulder and scap muscles and altered posture. She lives with her family and per pt she is independent with all ADLS when she does not have too much pain. However during the days of increased pain her daughter assists her with all ADLs including dressing and showering. She is unemployed. She would benefit from skilled PT to address the aforementioned impairments and improve tolerance to functional activities. Frequency and Duration: The patient will be seen 2/week for 5 weeks Short Term Goals: 1. Pt will demonstrate initiation of HEP in 2 weeks 2. Pt will have 50% decrease in pain which will enable her to sleep on R side in 3 weeks Vaccine Key Customer Leader Goals: 1. Pt will demonstrate an increase in muscle strength by 1 grade which will enable her to perform ADLS without assistance 75% of times in 5 weeks 2. Pt will be independent with all HEP for symptom management and maintenance following d/c in 5 weeks. Treatment Plan: Modalities to reduce pain, spasms and effusion. Manual therapy to restore motion and function. Therapeutic exercise to improve strength and flexibility. Neuromuscular re-education for posture and balance. Therapeutic activities to return to functional activities of daily living. Electronically signed by: Domi Rodriguez PT DPT Please sign and return to therapist. Thank you for your referral.
--- NOTE | 2025-01-17 08:45 | MHC.PT.DC ---
[facility] [place] [facility] [place] [facility] [place] Office [address] Rai Verduzco [address] [phone] F: [phone] F: [phone] F: [phone] F: [phone] Physical Therapy Discharge Report Diagnosis: Unspecified rotator cuff tear or rupture of R shoulder Date of Surgery: NA Date of Evaluation: 12/15/24 Date of Discharge: 01/17/25 Treatments to Date: 1 Cancellations to Date: 0 No Shows to Date: 2 Discharge Status: Visit Non-compliance Discharge Summary: Noreen no showed for 2 visits after her evaluation. She is therefore being d/c from PT for non compliance. Electronically signed by: Domi Rodriguez PT DPT Please sign and return to therapist. Thank you for your referral.
== END 2025-01-17 08:45 | disposition home or self-care (01) ==
LOC: HO.PT 11:16
PROVIDERS: PCP Nurse Practitioner Community Health; Visit Provider Physician Assistant
DX: M75.101 Unspecified rotator cuff tear or rupture of right shoulder, not specified as traumatic (principal)
CPT/HCPCS: 97110; 97161

== ENCOUNTER 2025-05-02 15:53 | Emergency (ER) | payer OTHER, SELFPAY ==
--- NOTE | ~2025-05-02 | XR_ITS ---
EXAMINATION: XR LUMBOSACRAL SPINE CLINICAL INFORMATION: low back pain s/p fall COMPARISON: April 21, 2020 TECHNIQUE: Three views of the lumbosacral spine. FINDINGS: There are 5 nonrib-bearing lumbar segments. There is stable mild wedging of T12 and L1, likely physiologic in nature. Vertebral body height and alignment is preserved. Disc space narrowing in the lower thoracic and upper lumbar spine is stable. XR/XR lumbar spine 2-3V IMPRESSION: Stable x-ray, no acute abnormality. Electronically signed by: Candido Elizabeth MD 05/02/2025 05:14 PM EDT
[2025-05-02 16:29] VITALS: BP 147/75; PULSE 82; RESP 18; TEMP 36.6; O2SAT 98; BMI 31.8
--- NOTE | 2025-05-02 16:33 | ED_ITS ---
HPI - Back Pain/Injury General Chief Complaint: Back Pain/Injury Stated Complaint: Lower Back Pain, Fall Time Seen by Provider: 05/02/25 18:12 Source: patient Limitations: no limitations History of Present Illness ED Provider: Ayse Anthony PA-C HPI Narrative: 45-year-old female with a history of chronic low back pain, lumbar degenerative disc disease, fibromyalgia, NADEEN positive, polyarthralgia, obesity, hypertension, hyperlipidemia, who presents with low back pain x1 month. Patient states she sustained a mechanical fall, landing directly on her buttock. Since she has had primarily right-sided low back pain, with radiation into the right lower extremity at times. Patient chronically has paresthesia, no change in the symptoms. Denies urinary retention or bowel incontinence, no weakness of lower extremities. Related Data Home Medications ?Medication ?Instructions ?Recorded ?Confirmed topiramate 25 mg sprinkle capsule PO 11/08/24 (Topamax) ondansetron 4 mg disintegrating mg PO 04/11/25 tablet Previous Rx's ?Medication ?Instructions ?Recorded propranolol 60 mg capsule,24 60 mg PO DAILY 90 days #9 0 caps 03/30/25 hr,extended release ketorolac 10 mg tablet 10 mg PO Q6H PRN pain #20 ta bs 05/02/25 methocarbamol 750 mg tablet 1,500 mg (2 x 750 mg) PO Q 8H PRN 05/02/25 pain, moderate #24 tabs methylprednisolone 4 mg tablets in 4 mg PO QAM #21 ea 05/02/25 a dose pack (Medrol (Carl[place])) Allergies Allergy/AdvReac Type Severity Reaction Status Date / Time Penicillins (PENICILLINS) Allergy Intermediate HIVES Verified 10/21/24 10:37 levofloxacin (From LEVAQUIN) Allergy Mild hives Verified 10/21/24 10:37 cetirizine (Zyrtec) Allergy Unknown palpitation Verified 10/21/24 10:37 s lamotrigine (LAMOTRIGINE) Allergy Unknown blurry Verified 10/21/24 10:37 vision latex (LATEX) Allergy Unknown HIVES Verified 10/21/24 10:37 pineapple Allergy Unknown Verified 05/02/25 16:31 Review of Systems Review of Systems: Yes all other systems are reviewed and are negative Constitutional: Constitutional: Denies fatigue and Denies fever(s) Cardiovascular: Cardiovascular: Denies chest pain and Denies dyspnea Respiratory: Respiratory: Denies dyspnea Gastrointestinal: Gastrointestinal: Denies abdominal pain, Denies nausea and Denies vomiting Musculoskeletal: Musculoskeletal: Reports back pain, Denies muscle weakness, Denies numbness and Reports tingling Neurologic: Denies numbness and Reports tingling Endocrine: Endocrine: Denies fatigue [facility] Past Medical History Attestation statement: The following information was validated with the patient. Medical History (Updated 05/02/25 @ 18:33 by JUMA Zuniga) MCI (mild cognitive impairment) Kidney stone Cervical disc disease Tension headache Migraine with aura Dizziness Disc degeneration, lumbar Spondylosis of lumbar region without myelopathy or radiculopathy Arthropathy of cervical facet joint Surgical History History of esophagogastroduodenoscopy (EGD) Hx of prior ablation treatment History of section History of bilateral tubal ligation Family History Family History Father No problems noted. Mother No problems noted. Brother No problems noted. Brother No problems noted. Brother No problems noted. Brother No problems noted. Brother No problems noted. Brother No problems noted. Sister No problems noted. Sister No problems noted. Sister No problems noted. Son No problems noted. Son No problems noted. Son No problems noted. Daughter No problems noted. Daughter No problems noted. Social History Social History Household Members Other:: 5 kids, single Alcohol intake: never Patient Tobacco Use Status: Never used Tobacco e-Cigarette/Vaping Use: Never Used Advance Directives: No Advance Directives Information Provided: No Do you have a plan to hurt others: No Plan Current occupational status: unemployed and disabled Physical Exam Exam: Exam: Alert, appears older than stated age Vital Signs: Vital Signs: Last Vital Signs Temp 98 F 05/02/25 16:29 Pulse 82 05/02/25 16:29 Resp 18 05/02/25 16:29 BP 147/75 H 05/02/25 16:29 Pulse Ox 98 05/02/25 16:29 O2 Del Method Room Air 05/02/25 16:29 BMI result Body Mass Index 31.8 Const: Other: Alert, appears older than stated age Orientation/consciousness: patient oriented x3 Resp: Effort & Inspection: normal respiratory effort Cardio: Other: Normal peripheral perfusion Back/Spine/Pelvis: Other: Limited forward bend secondary to pain Skin: Other: Warm dry no rash Neuro: Other: Antalgic gait General: patient oriented x3, no focal motor deficits and CN's II-XI intact bilaterally Extrem: Other: Strength 5/5 bilateral lower extremities Psych: Other: Calm cooperative Course Course Course Narrative: This is a Rapid Medical Examination (RME) performed by Miri Celestin PA-C in triage. Full HPI, ROS, assessment and treatment plan per primary provider in the Main ED. Hx: 45 yo F here for eval of low back pain (R>L) s/p fall 1 mo ago. no back pain red flag sx. Plan: xrs Medical Decision Making Medical Decision Making [facility] Narrative: 45-year-old female with a history of chronic low back pain, lumbar degenerative disc disease, fibromyalgia, NADEEN positive, polyarthralgia, obesity, hypertension, hyperlipidemia, who presents with low back pain x1 month. Patient states she sustained a mechanical fall, landing directly on her buttock. Since she has had primarily right-sided low back pain, with radiation into the right lower extremity at times. Patient chronically has paresthesia, no change in the symptoms. Denies urinary retention or bowel incontinence, no weakness of lower extremities. Problem: Chronic pain, known lumbar degenerative disc disease History: Per patient I have considered the following differential diagnoses: Lumbar strain, lumbar radiculopathy, cauda equina, compression fracture Plan: X-ray ordered from triage. She has some degenerative changes, no acute injury. The patient is having radicular symptoms without red flag signs symptoms concerning for cord compression, we will treat accordingly, sending with 2 anti-inflammatories and a muscle relaxant. I have independently reviewed the following tests: X-ray lumbar spine:FINDINGS: There are 5 nonrib-bearing lumbar segments. There is stable mild wedging of T12 and L1, likely physiologic in nature. Vertebral body height and alignment is preserved. Disc space narrowing in the lower thoracic and upper lumbar spine is stable. XR/XR lumbar spine 2-3V IMPRESSION: Stable x-ray, no acute abnormality. Discharge Plan Discharge Clinical Impression: Acute right lumbar radiculopathy Patient Disposition: Home, Self-Care Instructions: Lumbar Radiculopathy (ED) Additional Instructions: You are being treated for lumbar radiculopathy, see home care instructions. To note there were no acute findings on the x-ray of your lumbar spine, you do have underlying degenerative changes. Use the Medrol Dosepak as directed, this is a steroid taper. It is used as an anti-inflammatory. Use the ketorolac as directed, this is a 2nd anti-inflammatory, take it with food. Use the methocarbamol as needed for further pain, this is a muscle relaxant. It can cause drowsiness, do not drive or operate machinery while taking the medication. You need to follow up with your primary care provider, if your symptoms persist, you may benefit from physical therapy, which your primary care provider can expedite for you. Prescriptions: New methocarbamol 750 mg tablet 1,500 mg PO Q8H PRN (Reason: pain, moderate) Qty: 24 0RF methylprednisolone [Medrol (Carlton)] 4 mg tablets,dose pack 4 mg PO QAM Qty: 21 0RF ketorolac 10 mg tablet 10 mg PO Q6H PRN (Reason: pain) Qty: 20 0RF Rx Instructions: maximum total duration of 5 days from all oral, intranasal, or parenteral formulations. The patient received an intramuscular dose of Toradol here in the emergency room No Action propranolol 60 mg capsule,extended release 24 hr 60 mg PO DAILY 90 Days Qty: 90 0RF topiramate [Topamax] 25 mg capsule, sprinkle PO ondansetron 4 mg tablet,disintegrating PO Print Language: Sinhala
[2025-05-02 18:57] VITALS: BP 150/92; PULSE 77; RESP 18; TEMP 36.6; O2SAT 99
== END 2025-05-02 18:58 | disposition home or self-care (01) ==
PROVIDERS: Emergency Provider Emergency Medicine; PCP Nurse Practitioner Community Health
DX: M54.16 Radiculopathy, lumbar region (principal); M54.50 Low back pain, unspecified
CPT/HCPCS: 72100; 96372; 99283; 99284; J1885

== ENCOUNTER → 2025-05-02 16:32 | Outpatient (BNV) | payer OTHER, SELFPAY | PROVIDERS: PCP Nurse Practitioner Community Health; Visit Provider Radiology Diagnostic Radiology | DX: M54.50 Low back pain, unspecified (principal) | CPT/HCPCS: 72100 ==

== ENCOUNTER 2025-05-14 08:12 | Emergency (ER) | payer OTHER, SELFPAY ==
[2025-05-14 08:23] VITALS: BP 131/72; PULSE 84; RESP 18; TEMP 36.4; O2SAT 95; BMI 32.1
--- NOTE | 2025-05-14 08:27 | ED_ITS ---
HPI - General Adult General Chief complaint: Back Pain/Injury Stated complaint: Back Pain Fall 03/31/25 Time Seen by Provider: 05/14/25 08:26 Source: patient and other (patient's roommate) Mode of arrival: ambulatory Limitations: no limitations History of Present Illness ED Provider: Emmie Swartz PA-C HPI narrative: Patient is a 45 year old assigned female at with a history of lumbar disc degeneration, GERD, anxiety, vertigo, and fibromyalgia presenting to the emergency department today with right sided low back pain. Patient states that since a fall she sustained on March 31 2025 she has had right sided low back pain that radiates all the way down her right leg and into her groin. Patient states that she was evaluated for this and given a muscle relaxer and anti-inflammatory medications but she continues to have symptoms. Patient states that she previously followed with a fire fighting equipment specialist but has not seen any in years. Patient states that she is not having any increased urinary urgency, frequency, straining to urinate, or any symptoms related to her bowels. Related Data Home Medications ?Medication ?Instructions ?Recorded ?Confirmed topiramate 25 mg sprinkle capsule PO 11/08/24 (Topamax) ondansetron 4 mg disintegrating mg PO 04/11/25 tablet Previous Rx's ?Medication ?Instructions ?Recorded propranolol 60 mg capsule,24 60 mg PO DAILY 90 days #9 0 caps 03/30/25 hr,extended release ketorolac 10 mg tablet 10 mg PO Q6H PRN pain #20 ta bs 05/02/25 methocarbamol 750 mg tablet 1,500 mg (2 x 750 mg) PO Q 8H PRN 05/02/25 pain, moderate #24 tabs methylprednisolone 4 mg tablets in 4 mg PO QAM #21 ea 05/02/25 a dose pack (Medrol (Carlton)) prednisone 20 mg tablet See Rx Instructions .Route 0 05/14/25 .COMPLEX 9 days #18 tabs Allergies Allergy/AdvReac Type Severity Reaction Status Date / Time Penicillins (PENICILLINS) Allergy Intermediate HIVES Verified 05/14/25 08:25 levofloxacin (From LEVAQUIN) Allergy Mild hives Verified 05/14/25 08:25 cetirizine (Zyrtec) Allergy Unknown palpitation Verified 05/14/25 08:25 s lamotrigine (LAMOTRIGINE) Allergy Unknown blurry Verified 05/14/25 08:25 vision latex (LATEX) Allergy Unknown HIVES Verified 05/14/25 08:25 pineapple Allergy Unknown Verified 05/14/25 08:25 Review of Systems Constitutional: Constitutional: Reports as per HPI Eyes: Eyes: Reports as per HPI ENT: Reports as per HPI Cardiovascular: Cardiovascular: Reports as per HPI Respiratory: Respiratory: Reports as per HPI Gastrointestinal: Gastrointestinal: Reports as per HPI Genitourinary: Genitourinary: Reports as per HPI Musculoskeletal: Musculoskeletal: Reports as per HPI Integumentary/Breasts: Skin/Breast: Reports as per HPI Neurologic: Reports as per HPI Psychiatric: Psychiatric: Reports as per HPI Endocrine: Endocrine: Reports as per HPI Hematologic/Lymphatic: Hematologic/Lymphatic: Reports as per HPI Allergic/Immunologic: Allergic/Immunologic: Reports as per HPI [facility] Past Medical History Attestation statement: The following information was validated with the patient. Source: old records reviewed and nursing notes reviewed Medical History MCI (mild cognitive impairment) Kidney stone Cervical disc disease Tension headache Migraine with aura Dizziness Disc degeneration, lumbar Spondylosis of lumbar region without myelopathy or radiculopathy Arthropathy of cervical facet joint Surgical History History of esophagogastroduodenoscopy (EGD) Hx of prior ablation treatment History of section History of bilateral tubal ligation Family History Family History Father No problems noted. Mother No problems noted. Brother No problems noted. Brother No problems noted. Brother No problems noted. Brother No problems noted. Brother No problems noted. Brother No problems noted. Sister No problems noted. Sister No problems noted. Sister No problems noted. Son No problems noted. Son No problems noted. Son No problems noted. Daughter No problems noted. Daughter No problems noted. Social History Social History Household Members Other:: 5 kids, single Alcohol intake: never Patient Tobacco Use Status: Never used Tobacco e-Cigarette/Vaping Use: Never Used Advance Directives: No Advance Directives Information Provided: No Patient : No Current occupational status: unemployed and disabled Physical Exam ED Vital Signs: Vital Signs - 24 hr 05/14/25 08:23 05/14/25 09:06 Temperature 97.6 F 97.6 F Pulse Rate 84 82 Respiratory Rate 18 14 Blood Pressure 131/72 132/77 Pulse Oximetry 95 97 Oxygen Delivery Method Room Air Room Air BMI result Body Mass Index 32.1 Const General: cooperative, no acute distress, alert and awake Nutritional Appearance: well nourished Orientation/consciousness: patient oriented x3 HENMT Head: Yes normal to inspection and Yes atraumatic Ears: hearing grossly normal bilaterally and external ears normal General nose exam: Normal external nose present, no nasal discharge noted and no epistaxis Face and sinus: Yes normal facial exam, No abrasion and No laceration Mouth: Normal oral and palatal mucosa present, no drooling and no muffled voice Eyes General: appearance normal, both eyes and all related structures Periorbital: periorbital findings normal Eyelids: Yes eyelids normal Conjunctivae: conjunctivae normal Pupils: Equal, round and reactive pupils present EOM: EOMs intact bilaterally Neck Neck: Yes normal visual inspection and Yes full ROM Resp Effort & Inspection: normal respiratory effort and able to speak in complete sentences Neuro General: patient oriented x3, moves all extremities and CN's II-XI intact bilaterally Cranial nerves: Yes Equal, round and reactive pupils present Cognition (Neuro): normal cognition Extrem General: Yes normal to inspection, Yes full ROM and Yes capillary refill normal Psych Appearance: grossly normal Mental Status: mental status grossly normal Affect: normal affect Attitude: cooperative Thought process: Normal thought process present Thought content: Normal thought content present Insight: Good insight present (Psych) Medications Administered Discontinued Medications Generic Name Dose Route Start Last Admin Trade Name Nitinq PRN Reason Stop Dose Admin Diazepam 2 mg 05/14/25 08:45 05/14/25 09:01 Diazepam 2 Mg Tablet PO 05/14/25 08:46 2 mg ONCE ONE Administration Methylprednisolone Sodium Succinate 60 mg 05/14/25 08:45 05/14/25 09:01 Methylprednisolone Sod Succ 125 Mg/2 Ml Vial IM 05/14/25 08:46 60 mg ONCE ONE Administration Medical Decision Making Medical Decision Making MDM Narrative: Patient is a 45 year old assigned female at with a history of lumbar disc degeneration, GERD, anxiety, vertigo, and fibromyalgia presenting to the emergency department today with right sided low back pain. Patient's physical exam was unremarkable. Patient's clinical presentation is most consistent with acute low back pain in the setting of known lumbar DD. I explained my physical exam findings to the patient and the patient's roommate. I answered all questions asked by the patient and the patient's roommate. I stressed the importance of the patient taking her medication as directed (either prescribed or as the over the counter packaging recommends). I stressed the importance of the patient following up with her primary care provider and a fire fighting equipment specialist. I stressed the importance of the patient returning to the emergency department immediately if her symptoms were to worsen or if she were to develop any dizziness, shortness of breath, difficulty breathing, chest pain, blurry vision, loss of vision, nausea, vomiting, abdominal pain, fever, chills, back pain, or any other complaints. Patient and the patient's roommate verbalized agreement and understanding with this treatment plan and discharge. Differential Diagnosis Differential Diagnoses: The differential diagnosis associated with the presentation includes Lumbar back pain Lumbar disc disease Admission/Observation Consideration of admission/observation: Escalation of care including admission/observation considered Patient would have been admitted to the hospital had her clinical presentation warranted hospital admission. Independent Historian Clinical information obtained from an independent historian. History obtained from or confirmed by: Other (Patient's roommate provided additional history and confirmed the history provided by the patient. ) Tests considered The following testing was considered but not selected: I considered obtaining a lumbar spine x-ray or CT scan however, the patient's current clinical presentation did not warrant this. Discharge Plan Discharge Clinical Impression: Low back pain Patient Disposition: Home, Self-Care Instructions: Acute Low Back Pain (ED) Additional Instructions: Your examination is concerning for a flare of your known disc disease. I have prescribed you a steroid to help with this however, you should follow up with the fire fighting equipment specialist. IF you are prescribed home medications and/or you are taking over the counter medications at home - it is very important you continue to do so as prescribed / directed unless told otherwise. Follow up with your primary care provider. Return to the emergency department immediately if your symptoms worsen or if you develop any numbness, tingling, dizziness, shortness of breath, difficulty breathing, chest pain, blurry vision, loss of vision, nausea, vomiting, abdominal pain, fever, chills, back pain, or any other complaints. Please see the information below about our Patient Portal. If you are not yet enrolled in the [facility] Patient Portal, you will receive an enrollment email invitation following your visit to any [facility] care setting. You may also self-enroll in the Patient Portal by visiting our website: [email or web address] The following information is required to access the Patient Portal: - Your [facility] Medical Record Number - Your personal home email address (must match what is in your electronic medical record, Registration staff can assist with this) - Name - Date of Capabilities of the Patient Portal: - Message some providers - View upcoming appointments - Access your health summary, medical history, and visit history - View current conditions and allergies - View procedure and lab results - View your medications, including guidelines, side effects, and precautions - Complete pre-appointment questionnaires requested by your provider - Ready summary reports of your office visits and procedures To access the Patient Portal Mobile [employer], follow these directions: - Search [email or web address] in the [employer] Store or [employer] Store - Download the Samuel - Search for [facility] - Enter your login/password Prescriptions: New prednisone 20 mg tablet See Rx Instructions .ROUTE .COMPLEX 9 Days Qty: 18 0RF Rx Instructions: 20 mg orally, Take 3 tablets for 3 days THEN; Take 2 tablets for 3 days THEN; Take 1 tablet for 3 days No Action propranolol 60 mg capsule,extended release 24 hr 60 mg PO DAILY 90 Days Qty: 90 0RF methocarbamol 750 mg tablet 1,500 mg PO Q8H PRN (Reason: pain, moderate) Qty: 24 0RF methylprednisolone [Medrol (Carl[place])] 4 mg tablets,dose pack 4 mg PO QAM Qty: 21 0RF ketorolac 10 mg tablet 10 mg PO Q6H PRN (Reason: pain) Qty: 20 0RF Rx Instructions: maximum total duration of 5 days from all oral, intranasal, or parenteral for mulations. The patient received an intramuscular dose of Toradol here in the emergency room topiramate [Topamax] 25 mg capsule, sprinkle PO ondansetron 4 mg tablet,disintegrating PO Referrals: [facility] [Provider Group, Neurosurgery] Referral Note: Call to establish and follow up with the fire fighting equipment specialist. Alireza Desai NP [Primary Care Provider, Internal Medicine] Interventions: ED Discharge Assessment Last Done: 05/14/25 09:06 Discharge Date/Time: 05/14/25 09:07 Print Language: Trinidadian
--- NOTE | 2025-05-14 08:29 | PC.NURSE ---
Pt reports her R lower back pain is not improving with meds prescribed during her most recent visit and she can't wait until her PCP follow up this Thursday; denies any new injury to area
--- OUTSIDE RECORDS SUMMARY | 2025-05-14 08:43 | XMS_ITS | Clinical Summary ---
Author Organization [employer] [facility] Address [address] [place] [address] 7t [place] [address] Care Team Providers Care Sole Molding Machine Operator Name Role Phone Alireza Desai NP Primary Care Provider [phone] Allergies Active Allergy Reactions Criticality Noted Date Comments Lamotrigine 10/07/2022 Other reaction(s): Hyper-aggressive Latex 01/06/2020 Other reaction(s): Hives Levofloxacin Unknown 10/07/2022 Penicillamine Rash Low 10/07/2022 Penicillins 01/06/2020 Other reaction(s): Skin irritation Black Wenonah Flavoring Agent (Non-Screening) Hives 10/07/2022 ONLY WALNUTS [...] mouth in the morning. 90 tablet 3 04/11/2 024 Active Active Problems Problem Noted Date Diagnosed Date Bipolar disorder 10/08/2022 Constipation 10/08/2022 Fibrocystic changes of left breast 10/08/2022 Hyperlipidemia 10/08/2022 Irritable bowel syndrome 10/08/2022 Obesity (BMI 30.0-34.9) 10/08/2022 Myopia of both eyes 10/08/2022 PTSD (post-traumatic stress disorder) 10/08/2022 Gastroesophageal reflux disease 10/07/2022 Fibromyalgia 10/07/2022 Encounters Date Type Department Care Team Description 05/03/[address] [address] Alireza Desai NP ED Visit 05/03/2025 Orders Only [address] [address] ProviderBecky MD 04/21/2025 Telephone [facility] MED[facility] [address] [place] [address] Alireza Desai NP hospital discharge, obtain hospital records from Last 3 Months Immunizations Immunization Administration Dates Next Due Hep A / [...] 77 11/09/2023 11:22 AM EST Temperature 36.2 C (97.2 F) 11/09/2023 11:22 AM EST Respiratory Rate - - Oxygen Saturation 95% 11/09/2023 11:22 AM EST Inhaled Oxygen Concentration - - Weight 75.6 kg (166 lb 9.6 oz) 11/09/2023 11:22 AM EST Height 152.4 cm (5') 11/10/2022 9:46 AM EST Body Mass Index 32.54 11/10/2022 9:46 AM EST Plan of Treatment Upcoming Encounters Date Type Department Care Team (Late st Contact Info) Description 05/16/2025 9:30 AM EDT [facility] [address] Shelly Styles MD 70 [facility] [address] [facility] [place] [address] 06/20/2025 9:00 AM EDT Office [facility] [address] [place] [address] Alireza Desai NP 70 [place] [address] Health Maintenance Due Date Last Done Comments CT Colonography 1978 Dental Prophylaxis 1978 FIT DNA/Cologuard 1978 FIT 1978 FOBT 1978 HIV Screening 1978 Sigmoidoscopy 1978 Disability Screening 1978 Alcohol/Substance Use Screening 1990 Family Planning (PISQ) 1993 Hepatitis C Screening 1996 Pap Smear 1999 Cervical Cancer Screening 2008 HPV/Cotest 2008 Hepatitis B Vaccines (3 of 3 - 19+ 3-dose series) 06/26/2017 03/03/2017, 03/03/2017, 12/25/2016, Additional history exists Dental Oral Exam 11/28/2021 05/30/2021 Dental X-Ray: Bitewings 05/31/2022 05/30/2021 Depression Screening 11/10/2023 11/10/2022, 11/10/19 23 SDOH Screening 11/10/2023 11/10/2022 Tobacco Screening 03/10/2024 03/10/2023 COVID-19 Vaccine ( season) 2024 Dental X-Ray: Full Mouth 05/31/2024 05/30/2021 Mammogram 12/16/2024 12/16/2022, 12/13/2022 Influenza Vaccine (#1) 2025 07/17/2021, 2001 Zoster Vaccines (1 of 2) 2028 DTaP/Tdap/Td [...] patient's age to complete this topic Meningococcal B Vaccine Aged Out No l onger eligible based on patient's age to complete this topic Meningococcal Vaccine Aged Out No glory more eligible based on patient's age to complete this topic Pneumococcal Vaccine: Pediatrics (0 to 5 Years) and At-Risk Patients (6 to 49) Years Aged Out No longer eligible based on patient's age to complete this topic RSV under 20 months Aged Out No longe r eligible based on patient's age to complete this topic Rotavirus Vaccines Aged Out No longer eligible based on patient's age to complete this topic Procedures Procedure Name Priority Date/Time Associated Diagnosis Comments XR LUMBAR SPINE 2 TO 3 VIEWS Routine 05/02/2025 11:06 AM EDT HM COLONOSCOPY Routine 01/06/2023 HM MAMMOGRAPHY Routine 12/16/2022 INTRAORAL - COMPLETE SERIES OF RADIOGRAPHIC IMAGES Routine 05/30/2021 12:00 AM EDT COMPREHENSIVE ORAL EVALUATION - NEW OR ESTABLISHED PATIENT Routine 05/30/2021 12:00 AM EDT from Last 3 Months or Most Recently Relevant to Health Maintenance Results * XR LUMBAR SPINE 2 TO 3 VIEWS (05/02/2025 11:06 AM EDT) Anatomical Region Laterality Modality Radiographic Tita ging us Historical Provider MD IMG XR PROCEDURES Final R esult * Hm Colonoscopy (01/06/2023) us Historical Provider HEALTH MAINTENANCE Final Result * Hm Mammography (12/16/2022) Anatomical Region Laterality Modality Other us Historical Provider HEALTH MAINTENANCE Final Result from Last 3 Months or Most Recently Relevant to Health Maintenance Insurance [facility] STAND[facility] VS [facility] < 65 [facility] Care Teams Sole Molding Machine Operator Relationship Specialty Start Date End Date Alireza Desai NP 70 [place] [address] PCP - General Internal Medicine 11/07/22
--- OUTSIDE RECORDS SUMMARY | 2025-05-14 08:43 | XMS_ITS | Encounter Summary ---
Author Organization [facility] [facility] Address [address] [place] [address] 7 [place] [address] Care Team Providers Care Kitchen Supervisor Name Role Phone Alireza Desai NP [...] as of this encounter Plan of Treatment Upcoming Encounters Date Type Department Care Team (Late st Contact Info) Description 05/16/2025 9:30 AM EDT Office Visit [facility] [address] [place] [address] Shelly Styles MD 70 [place] [address] 06/20/2025 9:00 AM EDT Office Visit [facility] [address] [place] [address] Alireza Desai NP 70 [place] [address] documented as of this encounter Visit Diagnoses Not on filedocumented in this encounter Care Teams Kitchen Supervisor Relationship Specialty Start Date End Date Alireza Desai NP 70 [facility] [place] [address] PCP - General Internal Medicine 11/07/22 documented as of this encounter
--- OUTSIDE RECORDS SUMMARY | 2025-05-14 08:43 | XMS_ITS | Encounter Summary ---
Author Organization [facility] [employer] [facility] Address [address] [facility] [address] [facility] [address] 7[address] [place] [address] Care Team Providers Care Creative/Art Director Name Role Phone Alireza Desai NP Primary Care Provider [phone] Encounter Details Date Type Department Care Team (Late st Contact Info) Description 07/27/2023 Orders Only [facility] [address] [place], [place] [phone] Provider, MD Becky Social History Tobacco Use [...] Description 05/16/2025 9:30 AM EDT Office Visit [facility] 70 [facility] [place] [address] Shelly Styles MD 70 [place] [address] 06/20/2025 9:00 AM EDT Office Visit [facility] 70 [facility] [place] [address] Alireza Desai NP 70 [place] [address] documented as of this encounter Procedures Procedure Name Priority Date/Time Associated Diagnosis Comments MAMMOGRAPHY Routine 12/13/2022 documented in this encounter Results * Hm Mammography (12/13/2022) Anatomical Region Laterality Modality Other Historical Provider HEALTH MAINTENANCE Final Result documented in this encounter Visit Diagnoses Not on filedocumented in this encounter Care Teams Creative/Art Director Relationship Specialty Start Date End Date Alireza Desai NP 70 [place] [address] PCP - General Internal Medicine 11/07/22 documented as of this encounter
--- OUTSIDE RECORDS SUMMARY | 2025-05-14 08:43 | XMS_ITS | Encounter Summary ---
Author Organization [employer] [facility] Address 75 [facility] 7t [place] [address] Care Team Providers Care Counter Waitress/Waiter Name Role Phone Alireza Desai NP Primary Care Provider Encounter Details Date Type Department Care Team (Late st Contact Info) Description 12/16/[address] [facility] [address] [place] [address] Provider, MD Becky Social History Tobacco Use [...] Encounters Date Type Department Care Team (Late Contact Info) Description 05/16/2025 9:30 AM EDT Office Visit [facility] [address] [place] [address] Shelly Styles MD 70 [place] [address] 06/20/2025 9:00 AM EDT Office Visit [facility] 70 [place] [address] Alireza Desai NP 70 [place] [address] documented as of this encounter Procedures Procedure Name Priority Date/Time Associated Diagnosis Comments MAMMOGRAPHY Routine 12/16/2022 documented in this encounter Results * Mammography (12/16/2022) Anatomical Region Laterality Modality Other Historical Provider HEALTH MAINTENANCE Final Result documented in this encounter Visit Diagnoses Not on filedocumented in this encounter Care Teams Counter Waitress/Waiter Relationship Specialty Start Date End Date Alireza Desai NP [address] [place] [address] PCP - General Internal Medicine 11/07/22 documented as of this encounter
--- OUTSIDE RECORDS SUMMARY | 2025-05-14 08:43 | XMS_ITS | Encounter Summary ---
Author Organization [employer] Address [address] 7[address] [place] [address] Care Team Providers Care Vertical Punch Operator Name Role Phone Alireza Desai NP Primary Care Provider [phone] Encounter Details Date Type Department Care Team (Late st Contact Info) Description 07/21/2023 Orders Only [facility] [address] [place] [address] Provider, MD Becky Social History Tobacco Use [...] Description 05/16/2025 9:30 AM EDT Office Visit [facility] 70 [facility] [place] [address] Shelly Styles MD 70 [place] [address] 06/20/2025 9:00 AM EDT Office Visit [facility] MED[facility] 70 [facility] [place] [address] Alireza Desai NP 70 [place] [address] documented as of this encounter Procedures Procedure Name Priority Date/Time Associated Diagnosis Comments HM COLONOSCOPY Routine 01/06/2023 documented in this encounter Results * Hm Colonoscopy (01/06/2023) Historical Provider HEALTH MAINTENANCE Final Result documented in this encounter Visit Diagnoses Not on filedocumented in this encounter Care Teams Vertical Punch Operator Relationship Specialty Start Date End Date Alireza Desai NP 70 [place] [address] PCP - General Internal Medicine 11/07/22 documented as of this encounter
--- OUTSIDE RECORDS SUMMARY | 2025-05-14 08:43 | XMS_ITS | Encounter Summary ---
Author Organization [employer] Address [address] 7[address] [place] [address] Care Team Providers Care Fountain Jerk Name Role Phone Alireza Desai NP Primary Care Provider [phone] Encounter Details Date Type Department Care Team (Late st Contact Info) Description 05/03/[address] [facility] MEDICAL [address] [place] [address] Provider, MD Becky Social History Tobacco Use [...] Description 05/16/2025 9:30 AM EDT Office Visit [facility] 70 [place] [address] Shelly Styles MD 70 [place] [address] 06/20/2025 9:00 AM EDT Office Visit [facility] [address] [place] [address] Alireza Desai NP 70 [place] [address] documented as of this encounter Procedures Procedure Name Priority Date/Time Associated Diagnosis Comments XR LUMBAR SPINE 2 TO 3 VIEWS Routine 05/02/2025 11:06 AM EDT documented in this encounter Results * XR LUMBAR SPINE 2 TO 3 VIEWS (05/02/2025 11:06 AM EDT) Anatomical Region Laterality Modality Radiographic Tita ging us Historical Provider MD GONZALEZ XR PROCEDURES Final R esult documented in this encounter Visit Diagnoses Not on filedocumented in this encounter Care Teams Fountain Jerk Relationship Specialty Start Date End Date Alireza Desai NP 70 [place] [address] PCP - General Internal Medicine 11/07/22 documented as of this encounter
--- NOTE | 2025-05-14 09:05 | PC.NURSE ---
Pt medicated per orders for pain and spasm R lower back
[2025-05-14 09:06] VITALS: BP 132/77; PULSE 82; RESP 14; TEMP 36.4; O2SAT 97
== END 2025-05-14 09:07 | disposition home or self-care (01) ==
PROVIDERS: Emergency Provider Emergency Medicine; PCP Nurse Practitioner Community Health
DX: M54.50 Low back pain, unspecified (principal); Z79.899 Other long term (current) drug therapy
CPT/HCPCS: 96372; 99283; 99284; J2919

== ENCOUNTER 2025-05-19 11:55 | Emergency (ER) | payer OTHER, SELFPAY ==
--- OUTSIDE RECORDS SUMMARY | 2025-05-16 09:30 | XMS_ITS | Encounter Summary ---
Author Organization [employer] [facility] Address [address] [place] [address] 7 [place] [address] Care Team Providers Care Dairy Inspector Name Role Phone Alireza Desai NP Primary Care Provider [phone] Reason for Referral * Consultation (Urgent) - Pending Review Specialty Diagnoses / Procedures Referred By Vitor jose Referred To Contact Neurosurgery Diagnoses Right-sided low back pain with right-sided sciatica, unspecified chronicity Shelly Styles MD 70 [place], [place] Phone: tel: fax: Referral ID Status Reason Start Date Expiration Date Visits Requested Visits Authorized [id number] Pending Review Specialty Services Required 05/16/2025 05/16/2026 1 1 * Imaging (Routine) - Pending Review Specialty Diagnoses / Procedures Referred By Vitor jose Referred To Contact Radiology Diagnoses Right-sided low back pain with right-sided sciatica, unspecified chronicity Procedures MR Lumbar Spine w/o Contrast Shelly Styles MD [address] [place], [place] Phone: tel: fax: [facility], [address] Phone: tel: fax: Referral ID Status Reason Start Date Expiration Date V isits Requested Visits Authorized [id number] Pending Review 05/16/2025 05/16/2026 1 1 Reason for Visit * Reason Comments Follow-up Patient present in o ffice for follow up on low back pain runs down leg. Patient states pain started mid March, states pain is getting worse. Encounter Details Date Type Department Care Team (Late st Contact Info) Description 05/16/2025 9:30 AM EDT Office Visit [facility] [address] [place] [address] Shelly Styles MD 70 [place] [address] Right-sided low back pain with right-sided sciatica, unspecified chronicity (Primary Dx); Hyperlipidemia, unspecified hyperlipidemia type; Hypertension, unspecified type Social History Tobacco Use Types Packs/Day Years [...] PM EST documented as of this encounter Last Filed Vital Signs Vital Sign Reading Time Taken Comments Blood Pressure 156/96 05/16/2025 9:28 AM EDT Pulse 74 05/16/2025 9:28 AM EDT Temperature 37.1 C (98.7 F) 05/16/2025 9:28 AM EDT Respiratory Rate - - Oxygen Saturation 98% 05/16/2025 9:28 AM EDT Inhaled Oxygen Concentration - - Weight - - Height - - Body Mass Index - - documented in this encounter Progress Notes * Shelly Styles MD - 05/16/2025 9:30 AM EDT 05/16/25 Noreen Morrison [id number] HPI: Noreen Morrison is a 45 y.o. adult with hx of chronic LBP, lumbar DDD, fibromyalgia, NADEEN +, polyarthralgia obesity, who is here today for ER follow up for back pain. Pt fell backwards ~ 1 1/2 +month ago and landed on her buttock. She initially went to on 04/10 and was directed to go to ER but did not . She did present to [place] ER on 05/02. With R sided LBP with radiation to RLE. Pt chronically has paresthesias , no change in sx. Pt had Xray done showing no acute fracture. She was treated with medrol dose pack, ketolorac and methocarbamol. Pt returned to ER 05/14 with continued sx in her low back. Pt received a shot and also a valium which did help some. Pt still can't bend, difficult putting onclothes and showering. Sx worse with sitting and getting up and lying and getting up. R leg numbness when sititng and lying down. Pt feels likecharlie horse when walking. Standing not so bad. Pt was given prednisone 60 mg X 3 days, then 40 mg X 3 days, then 20 mg X 3 days sand told to follow up with spinal doctor. Pain mostly along R hip region down to calf, also around back which feels like regular disc. Pt feels pressure in private area but denies any loss of bowel or bladder function. Pt has tried heat and cold, ice packs, tylenol, motrin. Pt hasn't seen specialist or had shots in her back ~ 10 yrs ago per pt. Pt saw neurology this past spring. Reviewed note. Looks like pt's topamax was increased but pt saidneurologist stopped it because she was having side effects, was given propranolol but pt hasn't been taking recently because she stopped seieng neurologist... Pt's BP elevated today. Pt said it can be elevated with pain, anxiety but otherwise is normal although chart shows hx of HTN. Hx of elevated lipids, not taking statin as previously prescribed. Patient Active Problem List Diagnosis Date Noted Bipolar disorder (CMS/[facility]) 10/08/2022 Constipation 10/08/2022 Fibrocystic changes of left breast 10/08/2022 Hyperlipidemia 10/08/2022 Irritable bowel syndrome 10/08/2022 Obesity (BMI 30.0-34.9) 10/08/2022 Myopia of both eyes 10/08/2022 PTSD (post-traumatic stress disorder) 10/08/2022 Gastroesophageal reflux disease 10/07/2022 Fibromyalgia 10/07/2022 Medical History[1] Surgical History[2] Medications Ordered Prior to Encounter[3] Allergies[4] Social History[5] Social History Social History Narrative Not on file Review of Symptoms: Review of Systems Constitutional: Negative for fever. Respiratory: Negative for shortness of breath. Cardiovascular: Negative for chest pain. Musculoskeletal: Positive for back pain. Neurological: Positive for numbness. Physical Exam: BP (!) 156/96 (BP Location: Left arm, Patient Position: Sitting, BP Cuff Size: Adult) Pulse 74 Temp 98.7 ??F (37.1 ??C) (Temporal) SpO2 98% Physical Exam Constitutional: General: Noreen is not in acute distress. Appearance: Noreen is not ill-appearing, toxic-appearing or diaphoretic. HENT: Head: Normocephalic and atraumatic. Cardiovascular: Rate and Rhythm: Normal rate and regular rhythm. Pulmonary: Effort: Pulmonary effort is normal. Breath sounds: No wheezing, rhonchi or rales. Musculoskeletal: Cervical back: Normal range of motion. Comments: No bony spinal tenderness, diffuse discomfort over low back region, mild R sided paraspinal muscle tenderness, Pt unable to fully extend leg on R, + SLR on L, RLE strength 4/5, pt with weakness and inability to extend R great toe, Left strength 5/5, patella reflex 1+ R, 2+L, B/l achilles reflexes 2+, pt unable to stand on heels or toes for me. Neurological: Mental Status: Noreen is alert. ASSESSMENT AND PLAN 1. Right-sided low back pain with right-sided sciatica, unspecified chronicity (Primary) Worsening back pain now with new weakness L5 nerve On prednisone currently Pt to avoid any lifting /bending. MRI, refer to neurosurg - MR Lumbar Spine w/o Contrast; Future - MR Lumbar Spine w/o Contrast - Referral to Neurosurgery; Future - Referral to Neurosurgery 2. Hyperlipidemia, unspecified hyperlipidemia type - Lipid Panel, Standard 05757; Future - Lipid Panel, Standard 10621 3. Hypertension, unspecified type Elevated BP likely exacerbated by pain, however previous elevated BP's noted in chart. Recommend starting antihypertensive. Reviewed r/b/s.e. Pt to try to check/monitor BP at home if able. Follow up next month with PCP. - amLODIPine (Norvasc) 2.5 MG tablet; Take 1 tablet (2.5 mg) by mouth Once per day. Dispense: 30 tablet; Refill: 1 Shelly Styles MD [1] Past Medical History: Diagnosis Date Calcific tendinitis shoulders GERD (gastroesophageal reflux disease) 01/06/2023 EGD with thi, erosions, esophagitis; Colonoscopy negative HLD (hyperlipidemia) Immunity status testing 12/2023 Immune to MMRV Migraine Obesity Polyarthralgia PTSD (post-traumatic stress disorder) Previously Rxed trazodone, topamax, Seroquel, Zoloft, amitriptyline and Effexor. Renal stone 11/2022 Cystoscopy with removal [2] Past Surgical History: Procedure Laterality Date SECTION, UNSPECIFIED N/A x 5 TUBAL LIGATION Bilateral [3] Current Outpatient Medications on File Prior to Visit Medication Sig Dispense Refill predniSONE (Deltasone) 20 MG tablet Take 20 mg by mouth Once per day. acetaminophen (Tylenol 8 Hour) 650 MG ER tablet Take 1 tablet (650 mg) by mouth every 8 (eight) hours if needed for mild pain. Do not crush, chew, or split. (Patient not taking: Reported on 05/16/2025)90 tablet 1 amitriptyline (Elavil) 25 MG tablet Take 1 tablet (25 mg) by mouth at bedtime. 90 tablet 1 atorvastatin (Lipitor) 20 MG tablet Take 1 tablet (20 mg) by mouth in the morning. (Patient not taking: Reported on 05/16/2025) 90 tablet 3 meclizine (Antivert) 25 MG tablet Take 1 tablet (25 mg) by mouth if needed in the morning, at noon,and at bedtime for dizziness. (Patient not taking: Reported on 05/16/2025) 30 tablet 1 No current facility-administered medications on file prior to visit. [4] Allergies Allergen Reactions Zyrtec [Cetirizine] Anaphylaxis Lamotrigine Other reaction(s): Hyper-aggressive Latex Other reaction(s): Hives Levofloxacin Unknown Penicillins Other reaction(s): Skin irritation Walnuts [Black Bailey Flavoring Agent (Non-Screening)] Hives ONLY WALNUTS ALLERGY TO [place] CAKE = hives Penicillamine Rash [5] Social History Tobacco Use Smoking status: Never Smokeless tobacco: Never Substance Use Topics Alcohol use: Never Drug use: Never documented in this encounter Plan of Treatment Upcoming Encounters Date Type Department Care Team (Late st Contact Info) Description 06/20/2025 9:00 AM EDT Office Visit [facility] [address] [place] [address] Alireza Desai NP [address] [place] [address] Scheduled Orders Name Type Priority Associated Diagnoses Orde r Schedule Lipid Panel, Standard 46997 Lab Routine Hyperlipidemia, unspecified hyperlipidemia type Expected: 05/16/2025, Expires: 05/16/2026 MR Lumbar Spine w/o Contrast Imaging Routine Right-sided low back pain with right-sided sciatica, unspecified chronicity Expected: 05/16/2025 (Approximate), Expires: 05/16/2026 Scheduled Referrals Name Type Priority Associated Diagnoses Orde r Schedule Referral to Neurosurgery Outpatient Referral Urgent Right-sided low back pain with right-sided sciatica, unspecified chronicity Expected: 05/16/2025 (Approximate), Expires: 05/16/2026 documented as of this encounter Visit Diagnoses Diagnosis Right-sided low back pain with right-sided sciatica, unspecified chronicity- Primary Hyperlipidemia, unspecified hyperlipidemia type Hypertension, unspecified type documented in this encounter Care Teams Dairy Inspector Relationship Specialty Start Date End Date Alireza Desai NP [address] [place] [address] PCP - General Internal Medicine 11/07/22 documented as of this encounter
--- NOTE | ~2025-05-19 | US_ITS ---
EXAMINATION: US TRIPLEX LOWER EXTREMITY, RIGHT CLINICAL INFORMATION: Posterior calf pain, rule out DVT. COMPARISON: None available. TECHNIQUE: Color-flow triplex imaging with spectral analysis and compression Doppler were performed on the right lower extremity. FINDINGS: Examination is positive for deep venous thrombosis. There is partially occlusive echogenic thrombus within the popliteal vein, posterior tibial vein, and peroneal vein. The more proximal deep veins appear patent. There is no Mcknight's cyst. US/US venous duplex LE RT IMPRESSION: Positive examination for RIGHT lower extremity DVT. Partially occlusive echogenic thrombus within the popliteal vein, posterior tibial vein, and peroneal vein. Electronically signed by: Tex Ferguson MD 05/19/2025 03:41 PM EDT
--- NOTE | ~2025-05-19 | CT_ITS ---
CLINICAL HISTORY: PE rule out CT angiography chest with contrast. 3D Postprocessing. Comparison: None provided Findings: The heart is normal size. RV/LV ratio is normal. Unremarkable thoracic aorta and great vessels. No aneurysm. No pulmonary artery filling defects. The visualized thyroid and mediastinum are unremarkable. No consolidation or effusion. Hepatomegaly with steatosis. Colonic diverticulosis. The bones are intact. IMPRESSION: No evidence of PE. This document has been electronically signed by: Seb Genao MD on 05/19/2025 20:53:23
[2025-05-19 11:59] VITALS: BP 136/90; PULSE 70; RESP 18; TEMP 36.6; O2SAT 97; BMI 32.3
--- NOTE | 2025-05-19 12:00 | ED_ITS ---
HPI - General Adult General Chief complaint: Back Pain/Injury Stated complaint: back pain, leg pain Time Seen by Provider: 05/19/25 14:13 Source: patient Mode of arrival: ambulatory Limitations: no limitations History of Present Illness ED Provider: Dr. Ball HPI narrative: This is a 45-year-old female presented hospital today for evaluation of right posterior thigh pain that radiates down to her right calf. Patient states she had a fall back in March. However this pain was persistent. She has tried muscle relaxer, prednisone and Tylenol without any alleviation. Patient stated it is difficult for her to extend her leg step over to walk on due to the pain in her posterior thigh. Related Data Home Medications ?Medication ?Instructions ?Recorded ?Confirmed topiramate 25 mg sprinkle capsule PO 11/08/24 (Topamax) ondansetron 4 mg disintegrating mg PO 04/11/25 tablet Previous Rx's ?Medication ?Instructions ?Recorded propranolol 60 mg capsule,24 60 mg PO DAILY 90 days #9 0 caps 03/30/25 hr,extended release ketorolac 10 mg tablet 10 mg PO Q6H PRN pain #20 ta bs 05/02/25 methocarbamol 750 mg tablet 1,500 mg (2 x 750 mg) PO Q 8H PRN 05/02/25 pain, moderate #24 tabs methylprednisolone 4 mg tablets in 4 mg PO QAM #21 ea 05/02/25 a dose pack (Medrol (Carlton)) prednisone 20 mg tablet See Rx Instructions .Route 0 05/14/25 .COMPLEX 9 days #18 tabs apixaban 5 mg (74 tabs) tablets in 5 mg PO BID #74 ea 05/19/25 a dose pack (Eliquis DVT-PE Treat 30D Start) lidocaine 4 % topical patch 1 patch topical DAILY PRN pain #10 05/19/25 ea oxycodone 5 mg capsule 2.5 mg (1/2 x 5 mg) PO Q8H P RN 05/19/25 pain #10 caps Allergies Allergy/AdvReac Type Severity Reaction Status Date / Time Penicillins (PENICILLINS) Allergy Intermediate HIVES Verified 05/19/25 12:02 levofloxacin (From LEVAQUIN) Allergy Mild hives Verified 05/19/25 12:02 cetirizine (Zyrtec) Allergy Unknown palpitation Verified 05/19/25 12:02 s lamotrigine (LAMOTRIGINE) Allergy Unknown blurry Verified 05/19/25 12:02 vision latex (LATEX) Allergy Unknown HIVES Verified 05/19/25 12:02 pineapple Allergy Unknown Verified 05/19/25 12:02 Review of Systems 2 Review of Systems: Pertinent review of systems as mentioned in HPI. All other system otherwise negative. [facility] Past Medical History [facility] Narrative: Medical history as mentioned in HPI Medical History MCI (mild cognitive impairment) Kidney stone Cervical disc disease Tension headache Migraine with aura Dizziness Disc degeneration, lumbar Spondylosis of lumbar region without myelopathy or radiculopathy Arthropathy of cervical facet joint Surgical History History of esophagogastroduodenoscopy (EGD) Hx of prior ablation treatment History of section History of bilateral tubal ligation Family History Family History Father No problems noted. Mother No problems noted. Brother No problems noted. Brother No problems noted. Brother No problems noted. Brother No problems noted. Brother No problems noted. Brother No problems noted. Sister No problems noted. Sister No problems noted. Sister No problems noted. Son No problems noted. Son No problems noted. Son No problems noted. Daughter No problems noted. Daughter No problems noted. Social History Social History Household Members Other:: 5 kids, single Alcohol intake: never Patient Tobacco Use Status: Never used Tobacco e-Cigarette/Vaping Use: Never Used Advance Directives: No Advance Directives Information Provided: No Current occupational status: unemployed and disabled Physical Exam ED Exam Exam: General: Pleasant, no distress, interacting appropriately Head: Normacephalic, atraumatic ENT: oral mucosa moist, neck supple, no tracheal deviation Cardiovascular: regular rate, regular rhythm, no murmurs, rubbing, gallops Respiratory: CTAB, no wheeze, rales, rhonchi Extremities: Posterior right tenderness on the hamstring. Patient is unable to extend her right leg due to pain behind her thighs. She also have reproducible right calf tenderness on exam. CMS intact in the right lower Neurological: Awake and alert, no facial droop noted Skin: Warm and dry Psychiatric: Appropriate mood and thoughts Vital Signs: Vital Signs - 24 hr 05/19/25 11:59 05/19/25 16:19 05/19/25 18:23 Temperature 97.9 F 98.5 F Pulse Rate 70 75 80 Respiratory Rate 18 18 18 Blood Pressure 136/90 H 190/98 H 140/73 H Pulse Oximetry 97 100 99 Oxygen Delivery Method Room Air Room Air BMI result Body Mass Index 32.3 Course Course Course Narrative: This is a rapid medical exam performed by Trent Lacy NP: Additional HPI, ROS, PE not included below will be deferred to primary provider. Patient is a 45-year-old F presenting with complaint of onoging right lower back pain radiating down right leg after fall in March. Seen here twice previously for same. Had lumbar x-ray at first visit. Plan: will defer imaging to primary provider Medications Administered Discontinued Medications Generic Name Dose Route Start Last Admin Trade Name Freq PRN Reason Stop Dose Admin Apixaban 10 mg 05/19/25 16:29 05/19/25 17:18 Apixaban 5 Mg Tablet PO 05/19/25 16:30 10 mg ONCE ONE Administration Iohexol 100 ml 05/19/25 19:17 05/19/25 19:17 Iohexol 350 Mg/Ml 100 Ml Infus..Btl IV 05/19/25 19:18 65 ml ONCE ONE Administration Ketorolac Tromethamine 30 mg 05/19/25 14:53 05/19/25 15:32 Ketorolac Tromethamine 30 Mg/Ml Vial IM 05/19/25 14:54 Not Given ONCE ONE Lidocaine 1 patch 05/19/25 14:54 05/19/25 15:32 Lidocaine 4 % Patch Adh..Patch TRANSDERMA 05/19/25 14:55 Not Given ONCE ONE Protocol Oxycodone HCl 2.5 mg 05/19/25 14:51 05/19/25 15:35 Oxycodone Hcl Immed Release 5 Mg Tablet PO 05/19/25 14:52 2.5 mg ONCE ONE Administration Oxycodone HCl 2.5 mg 05/19/25 18:52 05/19/25 19:52 Oxycodone Hcl Immed Release 5 Mg Tablet PO 05/19/25 18:53 2.5 mg ONCE ONE Administration Medical Decision Making Medical Decision Making [facility] Narrative: This is a 45-year-old female presented hospital today for a chronic right lower extremity pain since her fall back in March. Patient stated that last time she was here she received an IM shot that helped. We will plan to give her some IM Toradol, we will plan to give patient a small dose of p.o. oxycodone as well. We will plan to give patient some lidocaine patch for her right posterior thigh. I have high suspicion for hamstring injury. I suspect patient likely tore her hamstring from the traumatic follow up. However patient has calf tenderness as well. We will obtain a DVT study to rule out any signs of clot. Patient's ultrasound was positive for DVT in the right lower extremity. Patient did complain of some shortness of breath I did order a CT of the chest to rule out PE. We will plan to start patient on Eliquis here. We will plan to give patient some oxycodone for pain control as well. On reassessment patient pain has improved. Her CAT scan did not show any signs of PE. We will plan to discharge patient on crutches follow up with Orthopedic for possible hamstring injury. We will start patient on Eliquis for her DVT. Have her follow up with her primary care doctor as well. She agrees and understands this plan all questions were addressed. Differential Diagnosis Differential Diagnoses: The differential diagnosis associated with the presentation includes DVT, torn hamstring, hamstring strain, pelvic fracture Independent Interpretation I performed an independent interpretation of an: Ultrasound and CT Scan Radiology Impression Discussion of test interpretation with radiology: I have reviewed the radiologist's reading. Discharge Plan Discharge Clinical Impression: DVT (deep venous thrombosis) Qualifiers: DVT location: lower extremity Affected thrombotic vein of extremity: popliteal Chronicity: acute Laterality: right Qualified Code(s): I82.431 - Acute embolism and thrombosis of right popliteal vein Hamstring muscle strain Qualifiers: Encounter type: subsequent encounter Laterality: right Qualified Code(s): S76.311D - Strain of muscle, fascia and tendon of the posterior muscle group at thigh level, right thigh, subsequent encounter Patient Disposition: Home, Self-Care Instructions: Venous Thromboembolism (ED), Blood Thinners (ED) Additional Instructions: I suspect you have a hamstring injury from the fall. Please follow up with the orthopedic clinic. You have a DVT on ultrasound I will start you on anticoagulation. If you fall, you will need a head CT imaging to assess for bleed. No signs of blood clots in your lungs Prescriptions: Oscar Bernstein DVT-PE Treat 30D Start 5 mg (74 tabs) tablets,dose pack 5 mg PO BID Qty: 74 0RF lidocaine 4 % adhesive patch,medicated 1 patch topical DAILY PRN (Reason: pain) Qty: 10 0RF oxycodone 5 mg capsule 2.5 mg PO Q8H PRN (Reason: pain) Qty: 10 0RF Rx Instructions: Partial Fill upon patient request. No Action propranolol 60 mg capsule,extended release 24 hr 60 mg PO DAILY 90 Days Qty: 90 0RF prednisone 20 mg tablet See Rx Instructions .ROUTE .COMPLEX 9 Days Qty: 18 0RF Rx Instructions: 20 mg orally, Take 3 tablets for 3 days THEN; Take 2 tablets for 3 days THEN; Take 1 tablet for 3 days methocarbamol 750 mg tablet 1,500 mg PO Q8H PRN (Reason: pain, moderate) Qty: 24 0RF methylprednisolone [Medrol (Carlton)] 4 mg tablets,dose pack 4 mg PO QAM Qty: 21 0RF ketorolac 10 mg tablet 10 mg PO Q6H PRN (Reason: pain) Qty: 20 0RF Rx Instructions: maximum total duration of 5 days from all oral, intranasal, or parenteral formulations. The patient received an intramuscular dose of Toradol here in the emergency room topiramate [Topamax] 25 mg capsule, sprinkle PO ondansetron 4 mg tablet,disintegrating PO Referrals: [facility] Orth[facility] Surgeons [Provider Group] Print Language: Zimbabwean
--- OUTSIDE RECORDS SUMMARY | 2025-05-19 12:45 | XMS_ITS | Encounter Summary ---
Author Organization [employer] Address [address] [place] [address] Care Team Providers Care Grain Unloader Machine Name Role Phone Alireza Desai NP Primary Care Provider [phone] Encounter Details Date Type Department Care Team (Late st Contact Info) Description 07/21/2023 Orders Only [facility] MEDICAL [address] [place] [address] Provider, MD Becky Social History Tobacco Use [...] 06/20/2025 9:00 AM EDT Office Visit Daniel [facility] MEDICAL [address] [place] [address] Alireza Desai NP [address] [place] [address] documented as of this encounter Procedures Procedure Name Priority Date/Time Associated Diagnosis Comments HM COLONOSCOPY Routine 01/06/2023 documented in this encounter Results * Hm Colonoscopy (01/06/2023) Historical Provider HEALTH MAINTENANCE Final Result documented in this encounter Visit Diagnoses Not on filedocumented in this encounter Care Teams Grain Unloader Machine Relationship Specialty Start Date End Date Alireza Desai NP [address] [place] [address] PCP - General Internal Medicine 11/07/22 documented as of this encounter
--- OUTSIDE RECORDS SUMMARY | 2025-05-19 12:45 | XMS_ITS | Encounter Summary ---
Author Organization [employer] Address [address] [place] [address] Care Team Providers Care Personal Lines Agent Name Role Phone Alireza Desai NP Primary Care Provider [phone] Encounter Details Date Type Department Care Team (Late st Contact Info) Description 05/03/2025 Orders Only [facility] [place] [facility] MEDICAL [address] [place] [address] Provider, MD Becky Social History Tobacco Use [...] 06/20/2025 9:00 AM EDT Office Visit Daniel [facility] MEDICAL [address] [place] [address] Alireza Desai NP [address] [place] [address] documented as of this encounter Procedures Procedure [...] on filedocumented in this encounter Care Teams Personal Lines Agent Relationship Specialty Start Date End Date Alireza Desai NP [address] [place] [address] PCP - General Internal Medicine 11/07/22 documented as of this encounter
--- OUTSIDE RECORDS SUMMARY | 2025-05-19 12:45 | XMS_ITS | Encounter Summary ---
Author Organization [facility] Address [address] [place] [address] [address] [place] [address] Care Team Providers Care Batch Roller Operator Name Role Phone Alireza Desai NP Primary Care Provider [phone] Encounter Details Date Type Department Care Team (Late st Contact Info) Description 12/16/2022 Orders Only [facility] MEDICAL [address] [place] [address] Provider, MD Becky Social History Tobacco Use [...] Description 06/20/2025 9:00 AM EDT Office Visit [facility] MEDICAL [address] [place] [address] Alireza Desai NP [address] [place] [address] documented as of this encounter Procedures Procedure Name Priority Date/Time Associated Diagnosis Comments MAMMOGRAPHY Routine 12/16/2022 documented in this encounter Results * Hm Mammography (12/16/2022) Anatomical Region Laterality Modality Other us Historical Provider MD HEALTH MAINTENANCE Final Result documented in this encounter Visit Diagnoses Not on filedocumented in this encounter Care Teams Batch Roller Operator Relationship Specialty Start Date End Date Alireza Desai NP [address] [facility] [place] [address] PCP - General Internal Medicine 11/07/22 documented as of this encounter
--- OUTSIDE RECORDS SUMMARY | 2025-05-19 12:45 | XMS_ITS | Clinical Summary ---
Author Organization [employer] [facility] Address [address] [place] [address] Care Team Providers Care Solid Waste Collector Name Role Phone Alireza Desai NP Primary Care Provider Allergies Active Allergy Reactions Criticality Noted Date Comments Lamotrigine 10/07/2022 Other reaction(s): Hyper-aggressive Latex 01/06/2020 Other reaction(s): Hives Levofloxacin Unknown 10/07/2022 Penicillamine Rash Low 10/07/2022 Penicillins 01/06/2020 Other reaction(s): Skin irritation Black Lawrence Flavoring Agent (Non-Screening) Hives 10/07/2022 ONLY [place]S ALLERGY TO [place] = hives Cetirizine Anaphylaxis High 01/08/2023 Medications meclizine (Antivert) 25 MG tabletIndications:Benig n paroxysmal positional vertigo, unspecified laterality Take 1 tablet (25 mg) by mouth if needed in the morning, at noon, and at bedtime for dizziness. 30 tablet 1 023 Active Additional Information Patient not taking.Reported on 05/16/2025 acetaminophen (Tylenol 8 Hour) 650 MG ER tabletIndications:Chron ic nonintractable headache, unspecified headache type Take 1 tablet (650 mg) by mouth every 8 (eight) hours if needed for mild pain. Do not crush, chew, or split. 90 tablet 1 023 Active Additional Information Patient not taking.Reported on 05/16/2025 amitriptyline (Elavil) 25 MG tabletIndications:Chron ic nonintractable headache, unspecified headache type Take 1 tablet (25 mg) by mouth at bedtime. 90 tablet 1 024 Active atorvastatin (Lipitor) 20 MG tabletIndications:Pure hypercholesterolemia Take 1 tablet (20 mg) by mouth in the morning. 90 tablet 3 024 Active Additional Information Patient not taking.Reported on 05/16/2025 predniSONE (Deltasone) 20 MG tablet Take 20 mg by mouth Once per day. 025 Active amLODIPine (Norvasc) 2.5 MG tabletIndications:Hyper tension, unspecified type Take 1 tablet (2.5 mg) by mouth Once per day. 30 tablet 1 025 2024 Active Active Problems Problem Noted Date Diagnosed Date Bipolar disorder 10/08/2022 Constipation 10/08/2022 Fibrocystic changes of left breast 10/08/2022 Hyperlipidemia 10/08/2022 Irritable bowel syndrome 10/08/2022 Obesity (BMI 30.0-34.9) 10/08/2022 Myopia of both eyes 10/08/2022 PTSD (post-traumatic stress disorder) 10/08/2022 Gastroesophageal reflux disease 10/07/2022 Fibromyalgia 10/07/2022 Encounters Date Type Department Care Team Description 05/16/2025 9:30 AM EDT Office Visit [facility] MEDICAL [address] [place] [address] Shelly Styles MD Right-sided low back pain with right-sided sciatica, unspecified chronicity (Primary Dx); Hyperlipidemia, unspecified hyperlipidemia type; Hypertension, unspecified type 05/03/2025 Telephone [facility] [address] [place] [address] Alireza Desai NP ED Visit 05/03/2025 Orders Only [facility] [address] [place] [address] Provider, MD Becky 04/21/2025 Telephone [facility] MEDICAL [address] [place] [address] Alireza Desai NP hospital discharge, obtain hospital [...] EDT Inhaled Oxygen Concentration - - Weight 75.6 kg (166 lb 9.6 oz) 11/09/2023 11:22 AM EST Height 152.4 cm (5') 11/10/2022 9:46 AM EST Body Mass Index 32.54 11/10/2022 9:46 AM EST Plan of Treatment Upcoming Encounters Date Type Department Care Team (Late st Contact Info) Description 06/20/2025 9:00 AM EDT Office Visit Daniel [facility] MEDICAL [address] [place] [address] Alireza Desai NP [address] [place] [address] Health Maintenance Due Date Last Done Comments [...] 11/10/2023 11/10/2022, 11/10/19 SDOH Screening 11/10/2023 11/10/2022 Tobacco Screening 03/10/2024 03/10/2023 Dental X-Ray: Full Mouth 05/31/2024 05/30/2021 Mammogram 12/16/2024 12/16/2022, 12/13/2022 COVID-19 Vaccine ( season) 2025 Influenza Vaccine (#1) 2025 07/17/2021, 2001 Zoster Vaccines (1 of 2) 2028 Lipid Panel 12/14/2028 12/15/2023, 04/18/2021 DTaP/Tdap/Td Vaccines (3 - Td or Tdap) [...] 3 VIEWS Routine 05/02/2025 11:06 AM EDT LIPID PROFILE WITH NON-HDL CHOLESTEROL Routine 12/15/2023 9:55 AM EDT HM COLONOSCOPY Routine 01/06/2023 HM [...] Anatomical Region Laterality Modality Radiographic Tita ging Historical Provider IMG XR PROCEDURES Final R esult * (ABNORMAL) Lipid Profile With Non-HDL Cholesterol (12/15/2023 9:55 AM EDT) Cholesterol, Total 247(H) 100 - 199 mg/dL [facility] Triglycerides 91 0 - 149 mg/dL [facility] HDL Cholesterol 39(L) >39 mg/dL [facility] VLDL Cholesterol Karthik 16 5 - 40 mg/dL [facility] LDL Chol Calc (NIH) 192(H) 0 - 99 mg/dL [facility] Non-HDL Cholesterol 208(H) 0 - 129 mg/dL [facility] Comment: Comment [facility] Comment: Possible Familial Hypercholesterolemia. FH should be suspected when fasting LDL cholesterol is above 189 mg/dL or non-HDL cholesterol is above 219 mg/dL. A family history of high cholesterol and heart disease in 1st degree relatives should be collected. J Clin Lipidol 2011;5:133-140 12/15/2023 9:55 AM EDT 12/15/2023 Narrative [facility] - 12/16/2023 6:05 AM EDT Performed at: 01 - [facility] [id number] Records Management Coordinator: Nanda Alarcon MD, Phone: [phone] Alireza Desai NP LAB BLOOD ORDERABLES Final R esult [facility] * Hm Colonoscopy (01/06/2023) Historical Provider HEALTH MAINTENANCE Final Result * Hm Mammography (12/16/2022) Anatomical Region Laterality Modality Other Historical Provider HEALTH MAINTENANCE Final Result from Last 3 Months or Most Recently Relevant to Health Maintenance Insurance [facility] STANDARD BLUE [facility] < [address] [facility] Care Teams Solid Waste Collector Relationship Specialty Start Date End Date Alireza Desai NP [address] [place] [address] PCP - General Internal Medicine 11/07/22
--- OUTSIDE RECORDS SUMMARY | 2025-05-19 12:45 | XMS_ITS | Encounter Summary ---
Author Organization [employer] [facility] Address [address] [place] [address] [address] [place] [address] Care Team Providers Care Glassware Finisher Name Role Phone Alireza Desai NP Primary [...] 06/20/2025 9:00 AM EDT Office Visit Daniel [facility] MED[facility] [address] [place] [address] Alireza Desai NP [address] [place] [address] documented as of this encounter Visit Diagnoses Not on filedocumented in this encounter Care Teams Glassware Finisher Relationship Specialty Start Date End Date Alireza Desai NP [address] [place] [address] PCP - General Internal Medicine 11/07/22 documented as of this encounter
--- OUTSIDE RECORDS SUMMARY | 2025-05-19 12:45 | XMS_ITS | Encounter Summary ---
Author Organization [employer] [facility] Address [address] [place] [address] Care Team Providers Care Ring Sorter Name Role Phone Alireza Desai NP Primary Care Provider [phone] Encounter Details Date Type Department Care Team (Late st Contact Info) Description 07/27/[address] [facility] [place] [facility] [address] [place], [place] [id number] Provider, MD Becky Social History Tobacco Use [...] 06/20/2025 9:00 AM EDT Office Visit Daniel [facility] MED[facility] [address] [place] [address] Alireza Desai NP [address] [place] [address] documented as of this encounter Procedures Procedure Name Priority Date/Time Associated Diagnosis Comments HM MAMMOGRAPHY Routine 12/13/2022 documented in this encounter Results * Hm Mammography (12/13/2022) Anatomical Region Laterality Modality Other Historical Provider HEALTH MAINTENANCE Final Result documented in this encounter Visit Diagnoses Not on filedocumented in this encounter Care Teams Ring Sorter Relationship Specialty Start Date End Date Alireza Desai NP [address] [place] [address] PCP - General Internal Medicine 11/07/22 documented as of this encounter
[2025-05-19] MEDS: oxyCODONE HCl Immed Release 5 MG TABLET 2.5 MG PO ×2 (15:35→19:52)
[2025-05-19 16:19] VITALS: BP 190/98; PULSE 75; RESP 18; O2SAT 100
--- NOTE | 2025-05-19 18:09 | PC.NURSE ---
Patient requested CT of chest. Dr. Ball ordered CT PE protocol. +DVT to right lower extremity. Medicated with Eliquis 10mg PO. Care ongoing by this RN.
[2025-05-19 18:23] VITALS: BP 140/73; PULSE 80; RESP 18; TEMP 36.9; O2SAT 99
[2025-05-19] MEDS: iohexoL 350 MG/ML 100 ML INFUS..BTL IV (19:17)
[2025-05-19 22:18] VITALS: BP 140/73; PULSE 80; RESP 18; TEMP 36.9; O2SAT 99
== END 2025-05-19 22:18 | disposition home or self-care (01) ==
PROVIDERS: Emergency Provider Student in an Organized Health Care Education/Training Program; PCP Nurse Practitioner Community Health
DX: I82.431 Acute embolism and thrombosis of right popliteal vein (principal); M54.50 Low back pain, unspecified; M79.604 Pain in right leg; R60.0 Localized edema
CPT/HCPCS: 71275; 93971; 99283; 99285; Q9967

== ENCOUNTER → 2025-05-19 14:53 | Outpatient (BNV) | payer OTHER, SELFPAY | PROVIDERS: Emergency Provider Student in an Organized Health Care Education/Training Program; PCP Nurse Practitioner Community Health; Visit Provider Radiology Diagnostic Radiology | DX: Z86.711 Personal history of pulmonary embolism (principal); I82.401 Acute embolism and thrombosis of unspecified deep veins of right lower extremity | CPT/HCPCS: 71275; 93971 ==

== ENCOUNTER 2025-06-03 18:53 | Outpatient (REF) | payer OTHER, SELFPAY ==
--- OUTSIDE RECORDS SUMMARY | 2025-06-01 12:30 | XMS_ITS | Encounter Summary ---
Author Organization [employer] [facility] Address [address] [place] [address] 7t [place] [address] Care Team Providers Care Laboratory Immunologist Name Role Phone Alireza Desai NP Primary Care Provider + [phone] Reason for Referral * Consultation (Routine) - Pending Review Specialty Diagnoses / Procedures Referred By Vitor t Referred To Contact Hematology Diagnoses Acute deep vein thrombosis (DVT) of other specified vein of right lower extremity (CMS/HCC) Alireza Desai NP [address] [place], [place] Phone: tel: fax: [facility] Hematology [address] [place] [address] 2nd Floor (in [facility]) [place], [place] Phone: tel: fax: Referral ID Status Reason Start Date Expiration Date Visits Requested Visits Authorized [id number] Pending Review Specialty Services Required 06/01/2025 06/01/2026 [address] Braxton, [facility], within 6 weeks Reason for Visit * Reason Comments Follow up pain Encounter Details Date Type Department Care Team (Late st Contact Info) Description 06/01/2025 12:30 PM EDT Office Visit Daniel [facility] [address] [place], [place] [phone] Alireza Desai NP [address] [place], [place] Acute deep vein thrombosis (DVT) of other specified vein of right lower extremity (CMS/HCC) (Primary Dx); Chronic right-sided low back pain with right-sided sciatica; Pain of right thigh; Hyperlipidemia, unspecified hyperlipidemia type Social History Tobacco Use Types Packs/Day [...] Sign Reading Time Taken Comments Blood Pressure 132/82 06/01/2025 12:59 PM EDT Pulse 88 06/01/2025 12:59 PM EDT Temperature 36.7 C (98 F) 06/01/2025 12:59 PM EDT Respiratory Rate - - Oxygen Saturation - - Inhaled Oxygen Concentration - - Weight 73 kg (161 lb) 06/01/2025 12:59 PM EDT Height - - Body Mass Index 31.44 05/24/2025 10:22 AM EDT documented in this encounter Progress Notes * Alireza Desai, SLAB DEPILER OPERATOR - 06/01/2025 12:30 PM EDT 06/01/25 Noreen Morrison 1980 [id number] HPI: Noreen Morrison is a 45 y.o. adult F/u Right LE pain Went to ED 05/19/25 with right posterior leg pain subsequent to a fall 03/2025 with pain in coccyx. Noleg pain then. US with DVT, started on Eliquis Question of hamstring injury on exam in ED, sent to orthopedics and given crutches, pending 06/16/25. Today: denies bruising o bleeding Feels pain in right LE all the time, sensation of buring sensation Walks with difficulty. Pain in right hip and behind right knee when bearing weight Also with increased low back pain. Using Percocet and Lidoderm patch, but has run out. Pt with elevated BP at visit 05/16/25, started on amlodipine. Pt not taking it. Hyperlipidemia. LDL 182 in past, started on atrovatstatin, has stopped it. Did not do repeat labs Pt reports dental issue, states needs extraction of right upper tooth but worried about doing that while anticoagulated Additional Hx of flank pain Fibromyalgia with pain in back, shoulders, legs, neck Hx renal stones in distant past, s/p ESWL. Renal US ordered due to recurrent left flank pain, not done. Lumbar xray 05/2025 unrevealing; MRI is pending 06/03/25 GERD and IBS Hx of PUD, harpreet for H. pylori Colonoscopy with internal hemorrhoids. No longer on PPI Referred to GI, pending Hx of recurrent vertigo and anxiety. Hx of headaches, intermittent numbness of left side of head. Seen neurology previously at [facility], Rxed Topamax briefly. Rxed Elavil for headaches, fibromyalgia pain, insomnia. Stopped meds Depression. Question of Bipolar. Hx of PTSD Chronic insomnia Seeing therapist (Alecia) at [facility] in [place] (fax [phone]). Seeing psychiatry via Zoom Previously Rxed Buspar, Lexapro, Ambien, gabapentin but has stopped all meds Full Stack Php Developer S/p BTL Pt saw potable water treatment operator ([facility]) told may need lysis of adhesions which are affecting her bladder. Hx of uterine ablation, no menses. No sexually active with her partner. Last pap unknown [facility] UTD on HAV and HBV and Tdap MMRV? (No records, no labs) Declines Covid vax, flu vax. Patient Active Problem List Diagnosis Date Noted Irritable bowel syndrome 10/08/2022 Obesity (BMI 30.0-34.9) 10/08/2022 Gastroesophageal reflux disease 10/07/2022 Fibromyalgia 10/07/2022 Acute deep vein thrombosis (DVT) of right lower extremity (CMS/HCC) 05/24/2025 Bipolar disorder (CMS/HCC) 10/08/2022 Constipation 10/08/2022 Fibrocystic changes of left breast 10/08/2022 Hyperlipidemia 10/08/2022 PTSD (post-traumatic stress disorder) 10/08/2022 Myopia of both eyes 10/08/2022 Medical History[1] Surgical History[2] Medications Ordered Prior to Encounter[3] Allergies[4] Social History[5] Social History Social History Narrative Not on file Review of Symptoms: Review of Systems Respiratory: Negative for shortness of breath. Cardiovascular: Negative for chest pain and leg swelling. Musculoskeletal: Positive for back pain. Physical Exam: BP 132/82 Pulse 88 Temp 98 ??F (36.7 ??C) Wt 161 lb (73 kg) BMI 31.44 kg/m?? Physical Exam Constitutional: Appearance: Normal appearance. HENT: Mouth/Throat: Comments: Broken right upper tooth. No swelling or discharge from the gums Cardiovascular: Rate and Rhythm: Normal rate and regular rhythm. Pulmonary: Effort: Pulmonary effort is normal. Breath sounds: Normal breath sounds. Musculoskeletal: Comments: Pt is lying on left side on the exam table, prefers to be examined in that position. Tender lower paraspinals. Right hip with diffuse tenderness. Right LE without swelling, mild tendereness over the posterior thigh and popliteal fossa, not over the calf. Right ankle/foot with FROM. Neurological: Mental Status: Noreen is alert and oriented to person, place, and time. ASSESSMENT AND PLAN 1. Acute deep vein thrombosis (DVT) of other specified vein of right lower extremity (CMS/HCC) (Primary) Pt with DVT of Right LE, unclear if provoked by her prior fall a month earlier. She will stay on Apixaban for a three months, and will refer to hematology for their input on longer or lifelong anticoagulation Pt to call if any worsening sx Review in a month - Referral to Hematology; Future - apixaban (Eliquis) 5 MG tablet; Take 1 tablet (5 mg) by mouth 2 times daily. Dispense: 120 tablet; Refill: 0 - Referral to Hematology 2. Chronic right-sided low back pain with right-sided sciatica She has longstanding pain, MRI is pending - oxyCODONE-acetaminophen (Percocet) 5-325 MG tablet; Take 1 tablet by mouth every 6 (six) hours ifneeded for moderate pain or severe pain. Dispense: 20 tablet; Refill: 0 - [facility] Lidocaine Pain Relief 4 % patch; Place 1 patch on the skin Once per day. Dispense: 30 patch; Refill: 1 3. Pain of right thigh Question of hamstring tear, unable to assess today. Pt does have appt pending with orthopedics for evaluationg - [facility] Lidocaine Pain Relief 4 % patch; Place 1 patch on the skin Once per day. Dispense: 30 patch; Refill: 1 4. Hyperlipidemia, unspecified hyperlipidemia type Pt has declined medication. Review next visit She declines imms today She will f/u with Dental, aware that intervention may be delayed until after completion of anticoagulation. She has declined psych meds but remains in care with therapist She does not appear to have HTN and has stopped her amlodipine Follow up in about 4 weeks (around 06/29/2025) for OV30 (DVT, leg/back pain). Alireza Desai, MSN, MSPH, ANP [address] [address] [1] Past Medical History: Diagnosis Date Calcific tendinitis shoulders GERD (gastroesophageal reflux disease) 01/06/2023 EGD with tih, erosions, esophagitis; Colonoscopy negative HLD (hyperlipidemia) Immunity status testing 12/2023 Immune to MMRV Migraine Obesity Polyarthralgia PTSD (post-traumatic stress disorder) Previously Rxed trazodone, topamax, Seroquel, Zoloft, amitriptyline and Effexor. Renal stone 11/2022 Cystoscopy with removal [2] Past Surgical History: Procedure Laterality Date SECTION, UNSPECIFIED N/A x 5 TUBAL LIGATION Bilateral [3] Current Outpatient Medications on File Prior to Visit Medication Sig Dispense Refill acetaminophen (Tylenol 8 Hour) 650 MG ER tablet Take 1 tablet (650 mg) by mouth every 8 (eight) hours if needed for mild pain. Do not crush, chew, or split. 90 tablet 1 [DISCONTINUED] [facility] Lidocaine Pain Relief 4 % patch APPLY 1 PATCH TOPICALLY DAILY NEEDED FOR PAIN [DISCONTINUED] oxyCODONE-acetaminophen (Percocet) 5-325 MG tablet Take 1 tablet by mouth every 6 (six) hours if needed for moderate pain or severe pain for up to 5 days. 15 tablet 0 [DISCONTINUED] amitriptyline (Elavil) 25 MG tablet Take 1 tablet (25 mg) by mouth at bedtime. 90 tablet 1 [DISCONTINUED] amLODIPine (Norvasc) 2.5 MG tablet Take 1 tablet (2.5 mg) by mouth Once per day. (Patient not taking: Reported on 06/01/2025) 30 tablet 1 [DISCONTINUED] atorvastatin (Lipitor) 20 MG tablet Take 1 tablet (20 mg) by mouth in the morning. (Patient not taking: Reported on 06/01/2025) 90 tablet 3 [DISCONTINUED] Eliquis DVT/PE Starter Pack 5 MG tablet therapy pack TAKE BY MOUTH DIRECTED PER DOSE PACK [DISCONTINUED] gabapentin (Neurontin) 100 MG capsule Take 1 capsule (100 mg) by mouth at bedtime for 2 days, THEN 1 capsule (100 mg) 2 times daily for 2 days, THEN 1 capsule (100 mg) 3 times daily. (Patient not taking: No sig reported) 90 capsule 0 [DISCONTINUED] meclizine (Antivert) 25 MG tablet Take 1 tablet (25 mg) by mouth if needed in the morning, at noon, and at bedtime for dizziness. (Patient not taking: Reported on 05/24/2025) 30 tablet 1 [DISCONTINUED] predniSONE (Deltasone) 20 MG tablet Take 20 mg by mouth Once per day. (Patient not taking: Reported on 05/24/2025) No current facility-administered medications on file prior to visit. [4] Allergies Allergen Reactions Zyrtec [Cetirizine] Anaphylaxis Lamotrigine Other reaction(s): Hyper-aggressive Latex Other reaction(s): Hives Levofloxacin Unknown Penicillins Other reaction(s): Skin irritation Walnuts [Black [place] Flavoring Agent (Non-Screening)] Hives ONLY WALNUTS ALLERGY TO [place] CAKE = hives Penicillamine Rash [5] Social History Tobacco Use Smoking status: Never Smokeless tobacco: Never Substance Use Topics Alcohol use: Never Drug use: Never documented in this encounter Plan of Treatment Scheduled Referrals Name Type Priority Associated Diagnoses Order Schedule Referral to Hematology Outpatient Referral Routine Acute deep vein thrombosis (DVT) of other specified vein of right lower extremity (CMS/HCC) Expected: 06/01/2025 (Approximate), Expires: 06/01/2026 documented as of this encounter Visit Diagnoses Diagnosis Acute deep vein thrombosis (DVT) of other specified vein of right lower extremity (CMS/HCC)- Primary Chronic right-sided low back pain with right-sided sciatica Pain of right thigh Hyperlipidemia, unspecified hyperlipidemia type documented in this encounter Care Teams Laboratory Immunologist Relationship Specialty Start Date End Date Alireza Desai NP [address] [place] [address] PCP - General Internal Medicine 11/07/22 documented as of this encounter
--- NOTE | ~2025-06-03 | MR_ITS ---
CLINICAL HISTORY: RIGHT SIDED LBP WITH RIGHT SIDE SCIATICA MR lumbar spine without gadolinium Comparison: None Findings: No scoliosis or spondylolisthesis. No acute fracture or pathologic bone lesion. Cauda equina and conus medullaris within normal limits. The retroperitoneal and paraspinal soft tissues are unremarkable. Individual levels: T11-T12: Small posterior disc protrusion with no significant central canal stenosis or neural foraminal narrowing. T12-L4: Unremarkable. L4-L5: Moderate broad-based disc protrusion mild bilateral neural foraminal narrowing. No central canal stenosis. Tiny disc fissure noted. L5-S1: Moderate posterior and right eccentric disc protrusion. Moderate bilateral neural foraminal narrowing as well as mass effect upon the right-sided descending S1 nerve root. Impression: Degenerative changes most pronounced at L5-S1. This document has been electronically signed by: Saman Dalton MD on 06/05/2025 10:54:39
--- OUTSIDE RECORDS SUMMARY | 2025-06-03 18:56 | XMS_ITS | Encounter Summary ---
Author Organization [employer] Address [address] 7t [place] [address] Care Team Providers Care Information Technology Administrator Name Role Phone Alireza Desai NP Primary Care Provider [phone] Encounter Details Date Type Department Care Team (Late st Contact Info) Description 07/21/2023 Orders Only [facility] MED[facility] [address] [place] [address] Provider, MD Becky Social History Tobacco Use [...] this encounter Results * Hm Colonoscopy (01/06/2023) us Historical Provider HEALTH MAINTENANCE Final Result documented in this encounter Visit Diagnoses Not on filedocumented in this encounter Care Teams Information Technology Administrator Relationship Specialty Start Date End Date Alireza Desai NP [address] [facility] [place] [address] PCP - General Internal Medicine 11/07/22 documented as of this encounter
--- OUTSIDE RECORDS SUMMARY | 2025-06-03 18:56 | XMS_ITS | Encounter Summary ---
Author Organization [employer] [facility] Address [address] 7t [place] [address] Care Team Providers Care Mill Recorder Name Role Phone Alireza Desai NP Primary Care Provider [phone] Encounter Details Date Type Department Care Team (Late st Contact Info) Description 07/27/2023 Orders Only [facility] MED[facility] [address] [place], [place] [id number] Provider, MD Becky Social History Tobacco Use [...] on filedocumented in this encounter Care Teams Mill Recorder Relationship Specialty Start Date End Date Alireza Desai NP [address] [place] [address] PCP - General Internal Medicine 11/07/22 documented as of this encounter
--- OUTSIDE RECORDS SUMMARY | 2025-06-03 18:57 | XMS_ITS | Encounter Summary ---
Author Organization [employer] [facility] Address [address] [facility] 7t [place] [address] Care Team Providers Care Contract Preparer Name Role Phone Alireza Desai NP Primary Care Provider [phone] Encounter Details Date Type Department Care Team (Late st Contact Info) Description 12/16/[address] [facility] MED[facility] [address] [place] [address] Provider, Historical, Social History Tobacco Use Types [...] on filedocumented in this encounter Care Teams Contract Preparer Relationship Specialty Start Date End Date Alireza Desai NP [address] [place] [address] PCP - General Internal Medicine 11/07/22 documented as of this encounter
--- OUTSIDE RECORDS SUMMARY | 2025-06-03 18:57 | XMS_ITS | Encounter Summary ---
Author Organization [employer] Address [address] 7[address] [place] [address] Care Team Providers Care Field Mechanic Name Role Phone Alireza Desai NP Primary Care Provider [phone] Encounter Details Date Type Department Care Team (Late st Contact Info) Description 05/21/2025 Orders Only [facility] [address] [place] [address] Alireza Desai NP [address] [place] [address] Social History Tobacco Use Types Packs/Day Years [...] Procedure Name Priority Date/Time Associated Diagnosis Comments US LOWER EXTREMITY VENOUS RIGHT Routine 05/19/2025 10:55 AM EDT documented in this encounter Results * VASC US Lower Extremity Venous Right (05/19/2025 10:55 AM EDT) Alireza Desai NP CV VASCULAR PROCEDURES Final Result documented in this encounter Visit Diagnoses Not on filedocumented in this encounter Care Teams Field Mechanic Relationship Specialty Start Date End Date Alireza Desai NP [address] [place] [address] PCP - General Internal Medicine 11/07/22 documented as of this encounter
--- OUTSIDE RECORDS SUMMARY | 2025-06-03 18:57 | XMS_ITS | Encounter Summary ---
Author Organization [employer] Address [address] 7t [place] [address] Care Team Providers Care Supervisor Industrial Garment Name Role Phone Alireza Desai NP Primary Care Provider Encounter Details Date Type Department Care Team (Latest Contact Info) Description 05/30/2025 Travel Social History Tobacco Use Types Packs/Day Years [...] on filedocumented in this encounter Care Teams Supervisor Industrial Garment Relationship Specialty Start Date End Date Alireza Desai NP [address] [place] [address] PCP - General Internal Medicine 11/07/22 documented as of this encounter
--- OUTSIDE RECORDS SUMMARY | 2025-06-03 18:57 | XMS_ITS | Encounter Summary ---
Author Organization [employer] Address [address] 7[address] [place] [address] Care Team Providers Care Wet Room Worker Name Role Phone Alireza Desai NP Primary Care Provider [phone] Encounter Details Date Type Department Care Team (Late st Contact Info) Description 05/03/2025 Orders Only [facility] MED[facility] [address] [place] [address] Provider, MD Becky Social History Tobacco Use [...] on filedocumented in this encounter Care Teams Wet Room Worker Relationship Specialty Start Date End Date Alireza Desai NP [address] [place] [address] PCP - General Internal Medicine 11/07/22 documented as of this encounter
--- OUTSIDE RECORDS SUMMARY | 2025-06-03 18:57 | XMS_ITS | Encounter Summary ---
Author Organization [facility] Address [address] [place] [address] 7t [place] [address] Care Team Providers Care Laborer Petroleum Refinery Name Role Phone Alireza Desai NP Primary Care Provider [phone] Encounter Details Date Type Department Care Team [...] on filedocumented in this encounter Care Teams Laborer Petroleum Refinery Relationship Specialty Start Date End Date Alireza Desai NP [address] [place] [address] PCP - General Internal Medicine 11/07/22 documented as of this encounter
--- OUTSIDE RECORDS SUMMARY | 2025-06-03 18:57 | XMS_ITS | Encounter Summary ---
Author Organization [email or web address] Address [address] 7t [place] [address] Care Team Providers Care Manager Ems Name Role Phone Alireza Desai NP Primary Care Provider [phone] Encounter Details Date Type Department Care Team (Late st Contact Info) Description 05/23/2025 Telephone [facility] [address] [place] [address] Alireza Desai NP [address] [place] [address] Social History Tobacco Use Types Packs/Day Years [...] on filedocumented in this encounter Care Teams Manager Ems Relationship Specialty Start Date End Date Alireza Desai NP [address] [place] [address] PCP - General Internal Medicine 11/07/22 documented as of this encounter
--- OUTSIDE RECORDS SUMMARY | 2025-06-03 18:57 | XMS_ITS | Encounter Summary ---
Author Organization [employer] [facility] Address [address] [facility] 7t [place] [address] Care Team Providers Care Photographer Apprentice Name Role Phone Alireza Desai NP Primary Care Provider [phone] Reason for Visit * Reason Onset Date Comments pain in leg, hip, and back 05/24/2025 Encounter Details Date Type Department Care Team (Late st Contact Info) Description 05/24/2025 Telephone [facility] [address] [place] [address] Susana Harrell LPN pain in leg, hip, and back Social History Tobacco Use Types Packs/Day Years [...] encounter Miscellaneous Notes * Telephone Encounter - Sena Gonzalez LPN - 05/30/2025 2:22 PM EDT Called pt - still having pain. Gabapentin is causing nausea. Has 2 lidocaine patches left for today. Is looking for something for pain. Is elevating the leg, not helping. * Telephone Encounter - Anaid Arredondo - 05/29/2025 9:46 AM EDT Patient called stating her pain is now in her back and she still can't bear weight on her leg. Patient states she would like a call back from nursing with advice prior to her upcoming appointment with JOSELINE on 06/01/25. * Telephone Encounter - Elizabet Akers LPN - 05/24/2025 8:45 AM EDT ED follow up scheduled for 10:00 today. ED report is in pt's chart. Flow sheet completed. * Telephone Encounter - Susana Harrell LPN - 05/24/2025 8:26 AM EDT Images from the original note were not included. Anaid Arredondo to [facility] T[facility] Nurses (Selected Message) RB 05/23/25 2:17 PM Patient called stating she was in the ER at [facility] on (05/18/25) or Thursday (05/19/25) where they diagnosed her with 2 hamstring injuries and blood clots. Patient states they put her on blood thinners but the pain is getting worse and she's unable to put any pressure on her right leg. Patient states her leg is still a little bit swollen and it feels like her leg and hip are turning inward. Patient confirmed appointment on 06/01/25 with JOSELINE. Patient states she would like a call back, thank you! documented in this encounter Plan of Treatment Not on file documented as of this encounter Visit Diagnoses Not on filedocumented in this encounter Care Teams Photographer Apprentice Relationship Specialty Start Date End Date Alireza Desai NP [address] [place] [address] PCP - General Internal Medicine 11/07/22 documented as of this encounter
--- OUTSIDE RECORDS SUMMARY | 2025-06-03 18:57 | XMS_ITS | Clinical Summary ---
Author Organization [email or web address] [facility] Address [address] [place] [address] [address] [place] [address] Care Team Providers Care Rail Gang Supervisor Name Role Phone Alireza Desai NP Primary Care Provider Allergies Active Allergy Reactions Criticality Noted Date Comments Lamotrigine 10/07/2022 Other reaction(s): Hyper-aggressive Latex 01/06/2020 Other reaction(s): Hives Levofloxacin Unknown 10/07/2022 Penicillamine Rash Low 10/07/2022 Penicillins 01/06/2020 Other reaction(s): Skin irritation [place] Flavoring Agent (Non-Screening) Hives 10/07/2022 ONLY [place] ALLERGY TO [place] = hives Cetirizine Anaphylaxis High 01/08/2023 Medications acetaminophen (Tylenol 8 Hour) 650 MG ER tabletIndications:Drop Hammer Setter Up jose manuel nonintractable headache, unspecified headache type Take 1 tablet (650 mg) by mouth every 8 (eight) hours if needed for mild pain. Do not crush, chew, or split. 90 tablet 1 023 Active oxyCODONE-acetaminophe n (Percocet) 5-325 MG tabletIndications:Drop Hammer Setter Up jose manuel right-sided low back pain with right-sided sciatica Take 1 tablet by mouth every 6 (six) hours if needed for moderate pain or severe pain. 20 tablet 025 Active [facility] Lidocaine Pain Relief 4 % patchIndications:Chron ic right-sided low back pain with right-sided sciatica,Pain of right thigh Place 1 patch on the skin Once per day. 30 patch 1 025 Active apixaban (Eliquis) 5 MG tabletIndications:[place] deep vein thrombosis (DVT) of other specified vein of right lower extremity (CMS/HCC) Take 1 tablet (5 mg) by mouth 2 times daily. 120 tablet 025 Active meclizine (Antivert) 25 MG tabletIndications:[place]ou[place] gn paroxysmal positional vertigo, unspecified laterality Take 1 tablet (25 mg) by mouth if needed in the morning, at noon, and at bedtime for dizziness. 30 tablet 1 023 2024 Discontinued amitriptyline (Elavil) 25 MG tabletIndications:Drop Hammer Setter Up jose manuel nonintractable headache, unspecified headache type Take 1 tablet (25 mg) by mouth at bedtime. 90 tablet 1 024 2024 Discontinued atorvastatin (Lipitor) 20 MG tabletIndications:Pure hypercholesterolemia Take 1 tablet (20 mg) by mouth in the morning. 90 tablet 3 024 2024 Discontinued predniSONE (Deltasone) 20 MG tablet Take 20 mg by mouth Once per day. 025 2024 Discontinued( Therapy completed) amLODIPine (Norvasc) 2.5 MG tabletIndications:Hype rtension, unspecified type Take 1 tablet (2.5 mg) by mouth Once per day. 30 tablet 1 025 2024 Discontinued Eliquis DVT/PE Starter Pack 5 MG tablet therapy pack TAKE BY MOUTH DIRECTED PER DOSE PACK 025 2024 Discontinued [facility]S Lidocaine Pain Relief 4 % patch APPLY 1 PATCH TOPICALLY DAILY NEEDED FOR PAIN 2024 Discontinued( Reorder (will not trigger notification to Pharmacy)) oxyCODONE (Roxicodone) 5 MG immediate release tablet TAKE 1/2 TABLET BY MOUTH EVERY 8 HOURS NEEDED FOR PAIN 025 2024 Discontinued oxyCODONE-acetaminophe n (Percocet) 5-325 MG tabletIndications:Drop Hammer Setter Up jose manuel right-sided low back pain with right-sided sciatica Take 1 tablet by mouth every 6 (six) hours if needed for moderate pain or severe pain for up to 5 days. 15 tablet 025 2024 Discontinued( Reorder (will not trigger notification to Pharmacy)) gabapentin (Neurontin) 100 MG capsuleIndications:Chr onic right-sided low back pain with right-sided sciatica Take 1 capsule (100 mg) by mouth at bedtime for 2 days, THEN 1 capsule (100 mg) 2 times daily for 2 days, THEN 1 capsule (100 mg) 3 times daily. 90 capsule 025 2024 Discontinued Active Problems Problem Noted Date Diagnosed Date Acute deep vein thrombosis (DVT) of right lower extremity 05/24/2025 Bipolar disorder 10/08/2022 Constipation 10/08/2022 Fibrocystic changes of left breast 10/08/2022 Hyperlipidemia 10/08/2022 Irritable bowel syndrome 10/08/2022 Obesity (BMI 30.0-34.9) 10/08/2022 Myopia of both eyes 10/08/2022 PTSD (post-traumatic stress disorder) 10/08/2022 Gastroesophageal reflux disease 10/07/2022 Fibromyalgia 10/07/2022 Encounters Date Type Department Care Team Description 06/01/2025 12:30 PM EDT Office Visit [facility] [address] [place] [address] Alireza Desai NP Acute deep vein thrombosis (DVT) of other specified vein of right lower extremity (CMS/HCC) (Primary Dx); Chronic right-sided low back pain with right-sided sciatica; Pain of right thigh; Hyperlipidemia, unspecified hyperlipidemia type 05/30/2025 Travel 05/24/2025 10:00 AM EDT Office Visit [facility] [address] [place] [address] [facility] Acute deep vein thrombosis (DVT) of other specified vein of right lower extremity (CMS/HCC) (Primary Dx); Chronic right-sided low back pain with right-sided sciatica; Hypertension, unspecified type 05/24/2025 Telephone [facility] [address] [place] [address] Susana Harrell LPN pain in leg, hip, and back 05/23/2025 Telephone [facility] [address] [place] [address] Alireza Desai NP 05/21/2025 Orders Only [facility] [address] [place] [address] Alireza Desai NP 05/16/2025 9:30 AM EDT Office Visit [facility] [address] [place] [address] Shelly Styles MD Right-sided low back pain with right-sided sciatica, unspecified chronicity (Primary Dx); Hyperlipidemia, unspecified hyperlipidemia type; Hypertension, unspecified type 05/03/2025 Telephone [facility] [address] [place] [address] Alireza Desai NP ED Visit 05/03/2025 Orders Only [facility] [address] [place] [address] ProviderBecky MD 04/21/2025 Telephone [facility] [address] [place] [address] Alireza Desai NP hospital discharge, obtain hospital [...] the past 12 months, has t he [employer], gas, oil or water company threatened to [...] Respiratory Rate - - Oxygen Saturation 98% 05/24/2025 10:22 AM EDT Inhaled Oxygen Concentration - - Weight 73 kg (161 lb) 06/01/2025 12:59 PM EDT Height 152.4 cm (5') 05/24/2025 10:22 AM EDT Body Mass Index 31.44 05/24/2025 10:22 AM EDT Plan of Treatment Health Maintenance Due Date [...] 11/10/2023 11/10/2022, 11/10/19 SDOH Screening 11/10/2023 11/10/2022 Dental X-Ray: Full Mouth 05/31/2024 05/30/2021 Mammogram 12/16/2024 12/16/2022, 12/13/2022 COVID-19 Vaccine ( - season) 2025 Influenza Vaccine (#1) 2025 07/17/2021, 2001 Tobacco Screening 05/24/2026 05/24/2025 Zoster Vaccines (1 of 2) 2028 Lipid [...] VENOUS RIGHT Routine 05/19/2025 10:55 AM EDT XR LUMBAR SPINE 2 TO 3 VIEWS [...] Recently Relevant to Health Maintenance Results * VASC US Lower Extremity Venous Right (05/19/2025 10:55 AM EDT) Alireza Desai NP CV VASCULAR PROCEDURES Final Result * XR LUMBAR SPINE 2 TO 3 [...] 6:05 AM EDT Performed at: 01 - [facility] [address] [id number] Refractory Mixer: Nanda Alarcon MD, Phone: [phone] us Alireza Desai NP LAB BLOOD ORDERABLES Final R esult [facility] 1 * Hm Colonoscopy (01/06/2023) Historical Provider HEALTH MAINTENANCE Final Result * Hm Mammography (12/16/2022) Anatomical Region Laterality Modality Other Historical Provider HEALTH MAINTENANCE Final Result from Last 3 Months or Most Recently Relevant to Health Maintenance Insurance [facility] ONE CARE < 65 DENTAL - [facility] Care Teams Rail Gang Supervisor Relationship Specialty Start Date End Date Alireza Desai NP [address] [place] [address] PCP - General Internal Medicine 11/07/22
== END 2025-06-03 18:54 | disposition home or self-care (01) ==
LOC: HO.MRI 18:53
PROVIDERS: Visit Provider Family Medicine
DX: M54.41 Lumbago with sciatica, right side (principal)
CPT/HCPCS: 72148

== ENCOUNTER → 2025-06-03 18:55 | Outpatient (BNV) | payer OTHER, SELFPAY | PROVIDERS: Visit Provider Radiology Vascular & Interventional Radiology | DX: M51.360 Other intervertebral disc degeneration, lumbar region with discogenic back pain only (principal) | CPT/HCPCS: 72148 ==

== ENCOUNTER 2025-06-05 14:49 | Emergency (ER) | payer OTHER, SELFPAY ==
--- OUTSIDE RECORDS SUMMARY | 2025-06-01 12:30 | XMS_ITS | Encounter Summary ---
Author Organization [employer] [facility] Address [address] [place] [address] 7t [place] [address] Care Team Providers Care Labor Employment Associate Name Role Phone Alireza Desai NP Primary Care Provider [phone] Reason for Referral * Consultation (Routine) - Pending Review Specialty Diagnoses / Procedures Referred By Vitor t Referred To Contact Hematology Diagnoses Acute deep vein thrombosis (DVT) of other specified vein of right lower extremity (CMS/HCC) Alireza Desai NP [address] [place], [place] Phone: tel: fax: [facility] [address] [place] [address] 2nd Floor (in [facility]) [place], [place] Phone: tel: fax: Referral ID Status Reason Start Date Expiration Date Visits Requested Visits Authorized [id number] Pending Review Specialty Services Required 06/01/2025 06/01/2026 [address] Braxton, [facility], within 6 weeks Reason for Visit * Reason Comments Follow up pain Encounter Details Date Type Department Care Team (Late st Contact Info) Description 06/01/2025 12:30 PM EDT Office Visit Daniel [facility] [address] [place], [place] [phone] Alireza Desai NP [address] [place], [place] Acute deep vein thrombosis (DVT) of [...] this encounter Progress Notes * Alireza Desai, RUBBER WORKER - 06/01/2025 12:30 PM EDT 06/01/25 Noreen Morrison [phone] HPI: Noreen Morrison is a 45 y.o. [...] side of head. Seen neurology previously at [facility], Rxed Topamax briefly. Rxed Elavil for headaches, fibromyalgia pain, insomnia. Stopped meds Depression. Question of Bipolar. Hx of PTSD Chronic insomnia Seeing therapist (Alecia) at [facility] in [place] (fax [phone]). Seeing psychiatry via Zoom Previously Rxed Buspar, Lexapro, Ambien, gabapentin but has stopped all meds Relief Mate S/p BTL Pt saw mainspring former brace end ([facility]) told may need lysis of adhesions which [...] leg/back pain). Alireza Desai, MSN, MSPH, ANP [address] [address] [1] Past Medical History: Diagnosis Date Calcific [...] Penicillins Other reaction(s): Skin irritation Walnuts [Black [place] Flavoring Agent (Non-Screening)] Hives ONLY WALNUTS ALLERGY [...] type documented in this encounter Care Teams Labor Employment Associate Relationship Specialty Start Date End Date Alireza Desai NP [address] [place] [address] PCP - General Internal Medicine 11/07/22 documented as of this encounter
--- NOTE | ~2025-06-05 | US_ITS ---
US/US arterial duplex LE RT IMPRESSION: 1. Mild peripheral artery disease evident. 2. No arterial thrombosis. Electronically signed by: Tex Ferguson MD 06/05/2025 04:27 PM EDT
--- NOTE | ~2025-06-05 | CT_ITS ---
CLINICAL HISTORY: trauma CT pelvis without contrast Comparison: CT/SR - CT PELVIS WITHOUT IV CONTRAST - 05/19/2025 04:25 PM EDT Findings: Pelvic contents unremarkable. No acute fracture. Sacrum and coccyx appear within normal limits. Mild degenerative changes of the bilateral hips. IMPRESSION: No acute fracture. This document has been electronically signed by: Tomeka Rocha MD on 06/05/2025 20:20:52
--- NOTE | ~2025-06-05 | CT_ITS ---
CLINICAL HISTORY: pain CT angiography chest with contrast. 3D Postprocessing. Comparison: CT/SR - CT ANGIO CHEST PE PROTOCOL - 05/19/25 19:14 EDT Findings: NECK BASE: Limited views of the thyroid are unremarkable. LUNGS/PLEURA: No focal consolidation. PULM VASCULAR: No pulmonary embolism. MEDIASTINUM: No masses or lymphadenopathy. CARDIAC: No pericardial effusion. No cardiomegaly. AORTA: No aneurysm. CHEST WALL: No masses or axillary lymphadenopathy. LIMITED ABDOMEN: Limited views are unremarkable. BONES: No acute fracture. IMPRESSION: 1. No pulmonary embolus. This document has been electronically signed by: Tomeka Rocha MD on 06/05/2025 20:17:17
[2025-06-05 14:53] VITALS: BP 157/88; PULSE 96; RESP 16; TEMP 36.1; O2SAT 97; BMI 26.4
--- NOTE | 2025-06-05 14:59 | ED_ITS ---
HPI - General Adult General Chief complaint: General Medical Stated complaint: R leg pain, DVT Time Seen by Provider: 06/05/25 17:59 Source: patient, RN notes reviewed and old records reviewed Mode of arrival: ambulatory Limitations: no limitations History of Present Illness ED Provider: Kelsie HPI narrative: 45-year-old female with a past medical history significant for fibromyalgia, polyarthralgia, GERD, obesity, hyperlipidemia, hypertension, DVT on Eliquis presents for evaluation of right leg pain. Patient reports that she suffered a fall in March She reports that she would not get seen right away but has since been to this facility 3 other times for leg and back pain. She was diagnosed with sciatica and given an injection of Toradol which she reports helped for couple of days. Most recently she returned on 05/19/2025 and was diagnosed with a DVT in the right lower extremity which is when she was started on Eliquis. Over the last few days she is been complaining of chest pain that radiates to her left shoulder and describes diaphoresis with sweating when her pain gets worse She was due to see Orthopedics for her right leg pain as there was concern for a hamstring injury She feels of the right leg feels in the left Denies any further injuries since the fall on March Related Data Home Medications ?Medication ?Instructions ?Recorded ?Confirmed topiramate 25 mg sprinkle capsule PO 11/08/24 (Topamax) ondansetron 4 mg disintegrating mg PO 04/11/25 tablet Previous Rx's ?Medication ?Instructions ?Recorded propranolol 60 mg capsule,24 60 mg PO DAILY 90 days #9 0 caps 03/30/25 hr,extended release ketorolac 10 mg tablet 10 mg PO Q6H PRN pain #20 ta bs 05/02/25 methocarbamol 750 mg tablet 1,500 mg (2 x 750 mg) PO Q 8H PRN 05/02/25 pain, moderate #24 tabs methylprednisolone 4 mg tablets in 4 mg PO QAM #21 ea 05/02/25 a dose pack (Medrol ([place])) prednisone 20 mg tablet See Rx Instructions .Route 0 05/14/25 .COMPLEX 9 days #18 tabs apixaban 5 mg (74 tabs) tablets in 5 mg PO BID #74 ea 05/19/25 a dose pack (Eliquis DVT-PE Treat 30D Start) lidocaine 4 % topical patch 1 patch topical DAILY PRN pain #10 05/19/25 ea oxycodone 5 mg capsule 2.5 mg (1/2 x 5 mg) PO Q8H P RN 05/19/25 pain #10 caps Allergies Allergy/AdvReac Type Severity Reaction Status Date / Time Penicillins (PENICILLINS) Allergy Intermediate HIVES Verified 06/05/25 15:03 levofloxacin (From LEVAQUIN) Allergy Mild hives Verified 06/05/25 15:03 cetirizine (Zyrtec) Allergy Unknown palpitation Verified 06/05/25 15:03 s lamotrigine (LAMOTRIGINE) Allergy Unknown blurry Verified 06/05/25 15:03 vision latex (LATEX) Allergy Unknown HIVES Verified 06/05/25 15:03 pineapple Allergy Unknown Verified 06/05/25 15:03 Review of Systems 2 Constitutional: Constitutional: Denies body ache(s), Denies chills and Denies fever(s) ENT: Denies dizziness Cardiovascular: Cardiovascular: Reports chest pain, Reports chest pain at rest, Denies dyspnea and Denies dyspnea on exertion Respiratory: Respiratory: Denies dyspnea and Denies dyspnea on exertion Gastrointestinal: Gastrointestinal: Denies abdominal pain Musculoskeletal: Musculoskeletal: Reports back pain, Reports arthralgias and Reports limited range of motion Integumentary/Breasts: Skin/Breast: Denies rash Neurologic: Denies dizziness [facility] Past Medical History Medical History MCI (mild cognitive impairment) Kidney stone Cervical disc disease Tension headache Migraine with aura Dizziness Disc degeneration, lumbar Spondylosis of lumbar region without myelopathy or radiculopathy Arthropathy of cervical facet joint Surgical History History of esophagogastroduodenoscopy (EGD) Hx of prior ablation treatment History of section History of bilateral tubal ligation Family History Family History Father No problems noted. Mother No problems noted. Brother No problems noted. Brother No problems noted. Brother No problems noted. Brother No problems noted. Brother No problems noted. Brother No problems noted. Sister No problems noted. Sister No problems noted. Sister No problems noted. Son No problems noted. Son No problems noted. Son No problems noted. Daughter No problems noted. Daughter No problems noted. Social History Social History Household Members Other:: 5 kids, single Alcohol intake: never Patient Tobacco Use Status: Never used Tobacco Smoked in Last 30 Days: No e-Cigarette/Vaping Use: Never Used Use of substances other than those prescribed or required for medical reasons: No Advance Directives: No Advance Directives Information Provided: No Patient : No Current occupational status: unemployed and disabled Physical Exam ED Vital Signs: Vital Signs - 24 hr 06/05/25 14:53 06/05/25 17:58 06/05/25 20:04 Temperature 96.9 F 98.7 F 98.4 F Pulse Rate 96 88 71 Respiratory Rate 16 18 20 Blood Pressure 157/88 H 123/63 159/76 H Pulse Oximetry 97 100 100 Oxygen Delivery Method Room Air Room Air Room Air BMI result Body Mass Index 26.4 Const General: healthy appearing, comfortable, no acute distress, alert and awake Nutritional Appearance: well nourished Orientation/consciousness: patient oriented x3 HENMT Head: Yes normocephalic and Yes atraumatic Eyes Eyelids: Yes eyelids normal Conjunctivae: conjunctivae normal Sclerae: sclerae normal Corneas: corneas normal Pupils: Equal, round and reactive pupils present EOM: EOMs intact bilaterally Neck Neck: Yes full ROM Resp Effort & Inspection: normal respiratory effort, able to speak in complete sentences and not labored Skin General skin exam: elasticity normal Neuro General: patient oriented x3 Cranial nerves: Yes CN's II-XII intact bilaterally, Yes Equal, round and reactive pupils present and Yes Bilaterally intact EOM present Cognition (Neuro): normal cognition Extrem Other: Moving all extremities well without any obvious deformities. There was no obvious deformity to the right lower extremity, she was able to flex and extend the waist and knee. There was no overlying skin changes such as erythema or ecchymosis, no rashes. Her right lower extremity is slightly cooler on the right compared to the left. Capillary refill remains intact to the right lower extremity. Compartments are soft on palpation. She does have essentially global tenderness to the right lower extremity without deformity noted Course Course Course Narrative: This is a Rapid Medical Examination (RME) performed by Miri Celestin PA-C in triage. Full HPI, ROS, assessment and treatment plan per primary provider in the Main ED. Hx: 45 yo F here for eval of worsening RLE pain x days w/ associated chest pain. diagnosed with DVT on 05/19/2025, started on Eliquis, taking as prescribed. Now having worsening pain to the right lower leg extending into the foot. Reports her foot feels cold, reports numb feeling to the lower leg. PE/vitals: faint dp pulse, no mottling Plan: lasb, ekg, venous and arterial duplex Medications Administered Discontinued Medications Generic Name Dose Route Start Last Admin Trade Name Freq PRN Reason Stop Dose Admin Acetaminophen 1,000 mg in 100 mls @ 400 mls/hr 06/05/25 18:30 06/05/25 19:08 Ofirmev IV 06/05/25 18:44 Infused ONCE ONE Infusion Iohexol 65 ml 06/05/25 19:39 06/05/25 19:40 Iohexol 350 Mg/Ml 100 Ml Infus..Btl IV 06/05/25 19:40 65 ml ONCE ONE Administration Medical Decision Making Medical Decision Making [facility] Narrative: 45-year-old female presents for evaluation of continued right leg pain. We will get a CT scan of her pelvis to evaluate for occult fracture. She would an arterial scan and a venous scan of the right lower extremity today. There was no evidence of DVT that was seen 17 days ago. Given her current chest pain we will get a CTA to hopefully rule out that this is travel to her lungs.. The patient's arterial scan did show mild peripheral artery disease but no evidence of arterial clot or obstruction. Differential Diagnosis Differential Diagnoses: The differential diagnosis associated with the presentation includes Right hip bursitis Pelvic fracture DVT Arterial insufficiency PE Pleurisy Fibromyalgia Lab Data [facility] Lab Attestation statement: I reviewed the patient's lab results. No Leukocytosis or anemia. Normal platelet count. No significant electrolyte abnormalities warranting intervention 06/05/25 16:19 06/05/25 16:19 Labs: Lab Results 06/05/25 Range/Units 16:19 WBC 7.7 (4.8-10.8) X10*3/uL RBC 4.64 (4.20-5.50) X10*6/uL Hgb 13.6 (12.0-16.0) g/dl Hct 39.5 (37.0-47.0) % MCV 85.1 (80.0-98.0) fL MCH 29.3 (27.0-33.0) pg MCHC 34.4 (31.0-35.0) g/dl RDW 12.5 (11.0-16.0) % Plt Count 249 (160-400) X10*3/uL MPV 10.6 (9.4-12.3) fL Immature Gran % (Auto) 0.5 H (0.0-0.4) % Neut % (Auto) 67.5 (45-73) % Lymph % (Auto) 25.6 (20-40) % [place] % (Auto) 5.1 (2-11) % Eos % (Auto) 0.9 (0-4) % Baso % (Auto) 0.4 (0-2) % Lymph # (Auto) 2.0 (1.2-4.9) X10*3/uL [place] # (Auto) 0.4 (0.1-1.2) X10*3/uL Eos # (Auto) 0.1 (0.0-0.4) X10*3/uL Baso # (Auto) 0.0 (0.0-0.2) X10*3/uL Abs Immat Gran (auto) 0.04 H (0.00-0.03) X10*3/uL Absolute Neuts (auto) 5.2 (2.0-8.3) x10*3/uL Absolute Nucleated RBC 0.000 (0.0-0.012) X10*3/uL Nucleated RBC % (auto) 0.0 (0.0-0.2) /100WBC PT 14.7 H (10.9-12.4) SEC INR 1.3 H (0.9-1.1) APTT 36.7 H (26.7-34.1) SEC Sodium 141 (135-145) mmol/L Potassium 4.0 (3.3-5.1) mmol/L Chloride 105 (96-108) mmol/L Carbon Dioxide 30 H (22-29) mmol/L Anion Gap 10 L (12-20) BUN 13 (9-16) mg/dL Creatinine 0.63 (0.5-1.4) mg/dL Estim Creat Clear Calc 94.2 Estimated GFR > 60 Random Glucose 87 (60-115) mg/dL Calcium 9.9 (8.4-10.2) mg/dL Magnesium 2.3 (1.6-2.6) mg/dL Total Bilirubin 0.3 (0.0-1.0) mg/dL AST 30 (5-31) U/L ALT 27 (0-31) U/L Alkaline Phosphatase 107 (39-117) U/L Troponin I High Sens < 2.7 (<3.5-17.0) ng/L Total Protein 8.1 H (6.5-8.0) g/dL Albumin 4.6 (3.5-5.0) g/dL Radiology Impression Discussion of test interpretation with radiology: I have reviewed the radiologist's reading. Radiologist Impression: Findings: NECK BASE: Limited views of the thyroid are unremarkable. LUNGS/PLEURA: No focal consolidation. PULM VASCULAR: No pulmonary embolism. MEDIASTINUM: No masses or lymphadenopathy. CARDIAC: No pericardial effusion. No cardiomegaly. AORTA: No aneurysm. CHEST WALL: No masses or axillary lymphadenopathy. LIMITED ABDOMEN: Limited views are unremarkable. BONES: No acute fracture. IMPRESSION: 1. No pulmonary embolus. This document has been electronically signed by: Tomeka Rocha MD on 06/05/2025 20:17:17 Findings: Pelvic contents unremarkable. No acute fracture. Sacrum and coccyx appear within normal limits. Mild degenerative changes of the bilateral hips. IMPRESSION: No acute fracture. This document has been electronically signed by: Tomeka Rocha MD on 06/05/2025 20:20:52 Discharge Plan Discharge Clinical Impression: Acute pain of right lower extremity Patient Disposition: Home, Self-Care Instructions: Leg Pain (ED) Additional Instructions: The ultrasounds of your leg did not show any clot in the venous or arterial systems of your right lower leg. The CT scan of the pelvis did not show any fracture. The CT scan your chest did not show any blood clots I recommend that you finish your course of Eliquis You may use Tylenol as needed for pain You may follow up with pain management as an outpatient and orthopedics as planned Prescriptions: No Action propranolol 60 mg capsule,extended release 24 hr 60 mg PO DAILY 90 Days Qty: 90 0RF prednisone 20 mg tablet See Rx Instructions .ROUTE .COMPLEX 9 Days Qty: 18 0RF Rx Instructions: 20 mg orally, Take 3 tablets for 3 days THEN; Take 2 tablets for 3 days THEN; Take 1 tablet for 3 days Eliquis DVT-PE Treat 30D Start 5 mg (74 tabs) tablets,dose pack 5 mg PO BID Qty: 74 0RF lidocaine 4 % adhesive patch,medicated 1 patch topical DAILY PRN (Reason: pain) Qty: 10 0RF oxycodone 5 mg capsule 2.5 mg PO Q8H PRN (Reason: pain) Qty: 10 0RF Rx Instructions: Partial Fill upon patient request. methocarbamol 750 mg tablet 1,500 mg PO Q8H PRN (Reason: pain, moderate) Qty: 24 0RF methylprednisolone [Medrol (Carl[place])] 4 mg tablets,dose pack 4 mg PO QAM Qty: 21 0RF ketorolac 10 mg tablet 10 mg PO Q6H PRN (Reason: pain) Qty: 20 0RF Rx Instructions: maximum total duration of 5 days from all oral, intranasal, or parenteral formulations. The patient received an intramuscular dose of Toradol here in the emergency room topiramate [Topamax] 25 mg capsule, sprinkle PO ondansetron 4 mg tablet,disintegrating PO Referrals: [facility] Pain Management [Provider Group, Pain Management] Referral Note: right leg pain Print Language: Georgian
--- NOTE | 2025-06-05 15:01 | ECG_ITS ---
Test Reason : CP Blood Pressure : */* mmHG Vent. Rate : 87 BPM Atrial Rate : 87 BPM P-R Int : 134 ms QRS Dur : 74 ms QT Int : 370 ms P-R-T Axes : 24 -12 28 degrees QTcB Int : 445 ms Normal sinus rhythm Minimal voltage criteria for LVH, may be normal variant ( R in aVL ) Borderline ECG When compared with ECG of 21-Feb-2021 19:03, No significant change was found Referred By: Haylie Celestin Electronically Signed By: Dmitri Mota
--- NOTE | 2025-06-05 15:39 | MHC.EDTECH ---
called Patient twice no responded
--- NOTE | 2025-06-05 15:40 | MHC.EDTECH ---
patient with ultrasound.
[2025-06-05 16:23] LABS: MANUAL DIFF FLAG NO
[2025-06-05 16:31] LABS: INTERNATIONAL NORM RATIO 1.3 (0.9-1.1); Prothrombin Time 14.7 SEC (10.9-12.4)
[2025-06-05 16:33] LABS: Partial Thromboplastin Time 36.7 SEC (26.7-34.1)
[2025-06-05 16:38] LABS: Hematocrit 39.5 % (37.0-47.0); Hemoglobin 13.6 g/dl (12.0-16.0); Imm Gran Abs Auto 0.04 X10*3/uL (0.00-0.03); Imm Gran Pct Auto 0.5 % (0.0-0.4); Lymphocytes Absolute Auto 2.0 X10*3/uL (1.2-4.9); Mean Corpuscular HGB Conc 34.4 g/dl (31.0-35.0); Mean Corpuscular Hemoglobin 29.3 pg (27.0-33.0); Mean Corpuscular Volume 85.1 fL (80.0-98.0); NRBC Abs Auto 0.000 X10*3/uL (0.0-0.012); NRBC Pct Auto 0.0 /100WBC (0.0-0.2); Platelet Count 249 X10*3/uL (160-400); Red Blood Count 4.64 X10*6/uL (4.20-5.50); White Blood Count 7.7 X10*3/uL (4.8-10.8)
[2025-06-05 16:40] LABS: Alanine Aminotransferase 27 U/L (0-31); Albumin Level 4.6 g/dL (3.5-5.0); Alkaline Phosphatase 107 U/L (39-117); Anion Gap 10 (12-20); Aspartate Amino Transferase 30 U/L (5-31); Blood Urea Nitrogen 13 mg/dL (9-16); Calcium 9.9 mg/dL (8.4-10.2); Carbon Dioxide 30 mmol/L (22-29); Chloride 105 mmol/L (96-108); Creatinine Clr Calc Pharmacy 94.2; Estimated Glomerular Filt Rate > 60; Magnesium 2.3 mg/dL (1.6-2.6); Potassium 4.0 mmol/L (3.3-5.1); Sodium 141 mmol/L (135-145); Total Protein 8.1 g/dL (6.5-8.0)
[2025-06-05 16:48] LABS: Troponin-I High Sensitivity < 2.7 ng/L (<3.5-17.0)
[2025-06-05 17:58] VITALS: BP 123/63; PULSE 88; RESP 18; TEMP 37.1; O2SAT 100
--- OUTSIDE RECORDS SUMMARY | 2025-06-05 18:26 | XMS_ITS | Clinical Summary ---
Author Organization [employer] [facility] Address [address] [place] [address] 7t [place] [address] Care Team Providers Care Oil Distributor Name Role Phone Alireza Desai NP Primary Care Provider Allergies Active Allergy Reactions Criticality Noted Date Comments Lamotrigine 10/07/2022 Other reaction(s): Hyper-aggressive Latex 01/06/2020 Other reaction(s): Hives Levofloxacin Unknown 10/07/2022 Penicillamine Rash Low 10/07/2022 Penicillins 01/06/2020 Other reaction(s): Skin irritation Black [place] Flavoring Agent (Non-Screening) Hives 10/07/2022 ONLY [place] ALLERGY TO [place] = hives Cetirizine Anaphylaxis High 01/08/2023 Medications acetaminophen (Tylenol 8 Hour) 650 MG ER tabletIndications:Human Resources Benefits Specialist jose manuel nonintractable headache, unspecified headache type Take 1 tablet (650 mg) by mouth every 8 (eight) hours if needed for mild pain. Do not crush, chew, or split. 90 tablet 1 023 Active oxyCODONE-acetaminophe n (Percocet) 5-325 MG tabletIndications:Human Resources Benefits Specialist jose manuel right-sided low back pain with [...] 023 2024 Discontinued amitriptyline (Elavil) 25 MG tabletIndications:Human Resources Benefits Specialist jose manuel nonintractable headache, unspecified headache type [...] 2024 Discontinued oxyCODONE-acetaminophe n (Percocet) 5-325 MG tabletIndications:Human Resources Benefits Specialist jose manuel right-sided low back pain with [...] Description 06/01/2025 12:30 PM EDT [facility] [address] [place] [address] Alireza Desai NP Acute deep vein thrombosis (DVT) of other specified vein of right lower extremity (CMS/HCC) (Primary Dx); Chronic right-sided low back pain with right-sided sciatica; Pain of right thigh; Hyperlipidemia, unspecified hyperlipidemia type 05/30/2025 Travel 05/24/2025 10:00 AM EDT Office [facility] [address] [place] [address] [facility] Acute deep vein thrombosis (DVT) of other specified vein of right lower extremity (CMS/HCC) (Primary Dx); Chronic right-sided low back pain with right-sided sciatica; Hypertension, unspecified type 05/24/2025 Telephone [facility] MEDICAL [address] [place] [address] Susana Harrell LPN pain in leg, hip, and back 05/23/2025 Telephone [facility] [address] [place] [address] Alireza Desai NP 05/21/2025 Orders Only [facility] [address] [place] [address] Alireza Desai NP 05/16/2025 9:30 AM EDT Office Visit [facility] [address] [place] [address] Shelly Styles MD Right-sided low back pain with right-sided sciatica, unspecified chronicity (Primary Dx); Hyperlipidemia, unspecified hyperlipidemia type; Hypertension, unspecified type 05/03/2025 Telephone [facility] [address] [place] [address] Alireza Desai NP ED Visit 05/03/2025 Orders Only [facility] [address] [place] [address] ProviderBecky MD 04/21/2025 Telephone [facility] MEDICAL [address] [place] [address] Alireza Desai NP hospital discharge, obtain hospital [...] the past 12 months, has t he [employer], gas, oil or water company threatened to [...] AM EDT Performed at: 01 - [facility] [address] [id number] Director Of Agronomy: Nanda Alarcon MD, Phone: [phone] us Alireza Desai NP LAB BLOOD ORDERABLES Final R esult [facility] 1 * Hm Colonoscopy (01/06/2023) Historical Provider HEALTH MAINTENANCE Final Result * Hm Mammography (12/16/2022) Anatomical Region Laterality Modality Other Historical Provider HEALTH MAINTENANCE Final Result from Last 3 Months or Most Recently Relevant to Health Maintenance Insurance [facility] ONE CARE < 65 DENTAL - [facility] Care Teams Oil Distributor Relationship Specialty Start Date End Date Alireza Desai NP [address] [place] [address] PCP - General Internal Medicine 11/07/22
--- OUTSIDE RECORDS SUMMARY | 2025-06-05 18:26 | XMS_ITS | Encounter Summary ---
Author Organization [employer] Address [address] 7[address] [place] [address] Care Team Providers Care Flying Teacher Name Role Phone Alireza Desai NP Primary Care Provider Encounter Details Date Type Department Care Team (Late st Contact Info) Description 05/23/2025 Telephone [facility] [address] [place] [address] Alireza Desai NP [address] [place] [address] Social History Tobacco Use Types Packs/Day Years [...] on filedocumented in this encounter Care Teams Flying Teacher Relationship Specialty Start Date End Date Alireza Desai NP [address] [facility] [address] PCP - General Internal Medicine 11/07/22 documented as of this encounter
--- OUTSIDE RECORDS SUMMARY | 2025-06-05 18:26 | XMS_ITS | Encounter Summary ---
Author Organization [employer] [facility] Address [address] 7t [place] [address] Care Team Providers Care Engineer Specialist Name Role Phone Alireza Desai NP Primary Care Provider [phone] Encounter Details Date Type Department Care Team (Late st Contact Info) Description 07/27/2023 Orders Only [facility] MEDICAL [address] [place], [place] [id number] Provider, MD Becky Social History Tobacco Use [...] on filedocumented in this encounter Care Teams Engineer Specialist Relationship Specialty Start Date End Date Alireza Desai NP [address] [place] [address] PCP - General Internal Medicine 11/07/22 documented as of this encounter
--- OUTSIDE RECORDS SUMMARY | 2025-06-05 18:26 | XMS_ITS | Encounter Summary ---
Author Organization [employer] Address [address] 7[address] [place] [address] Care Team Providers Care Customer Sales Consultant Name Role Phone Alireza Desai NP Primary Care Provider [phone] Encounter Details Date Type Department Care Team (Late st Contact Info) Description 07/21/2023 Orders Only [facility] MEDICAL [address] [place] [address] Provider, MD Becky Social History Tobacco Use [...] on filedocumented in this encounter Care Teams Customer Sales Consultant Relationship Specialty Start Date End Date Alireza Desai NP 70 [place] [address] PCP - General Internal Medicine 11/07/22 documented as of this encounter
--- OUTSIDE RECORDS SUMMARY | 2025-06-05 18:26 | XMS_ITS | Encounter Summary ---
Author Organization [employer] [facility] Address [address] [place] [address] 7t [place] [address] Care Team Providers Care Hand Fabric Cutter Name Role Phone Alireza Desai NP Primary [...] on filedocumented in this encounter Care Teams Hand Fabric Cutter Relationship Specialty Start Date End Date Alireza Desai NP [address] [place] [address] PCP - General Internal Medicine 11/07/22 documented as of this encounter
--- OUTSIDE RECORDS SUMMARY | 2025-06-05 18:27 | XMS_ITS | Encounter Summary ---
Author Organization [employer] [facility] Address [address] [facility] [facility] 7t [place] [address] Care Team Providers Care Stave Block Roller Name Role Phone Alireza Desai NP Primary Care Provider [phone] Encounter Details Date Type Department Care Team (Late st Contact Info) Description 12/16/2022 Orders Only [facility] MEDICAL [address] [place] [address] Provider, Historical, Social History Tobacco Use Types [...] on filedocumented in this encounter Care Teams Stave Block Roller Relationship Specialty Start Date End Date Alireza Desai NP [address] [place] [address] PCP - General Internal Medicine 11/07/22 documented as of this encounter
--- OUTSIDE RECORDS SUMMARY | 2025-06-05 18:27 | XMS_ITS | Encounter Summary ---
Author Organization [employer] Address [address] 7[address] [place] [address] Care Team Providers Care Enterprise Resource Planning Consultant Name Role Phone Alireza Desai NP Primary Care Provider Encounter Details Date Type Department Care Team (Late st Contact Info) Description 05/21/2025 Orders Only [facility] [address] [place] [address] Alireza Desai NP [address] [place] [address] Social History Tobacco Use Types Packs/Day Years [...] on filedocumented in this encounter Care Teams Enterprise Resource Planning Consultant Relationship Specialty Start Date End Date Alireza Desai NP [address] [place] [address] PCP - General Internal Medicine 11/07/22 documented as of this encounter
--- OUTSIDE RECORDS SUMMARY | 2025-06-05 18:27 | XMS_ITS | Encounter Summary ---
Author Organization [employer] Address [address] [place] [address] Care Team Providers Care Pest Controller Name Role Phone Alireza Desai NP Primary Care Provider [phone] Encounter Details Date Type Department Care Team (Late st Contact Info) Description 05/03/2025 Orders Only [facility] MEDICAL [address] [place] [address] Provider, MD Becky Social History Tobacco Use [...] on filedocumented in this encounter Care Teams Pest Controller Relationship Specialty Start Date End Date Alireza Desai NP [address] [place] [address] PCP - General Internal Medicine 11/07/22 documented as of this encounter
[2025-06-05] MEDS: iohexoL 350 MG/ML 100 ML INFUS..BTL 65 ML IV (19:40)
[2025-06-05 20:04] VITALS: BP 159/76; PULSE 71; RESP 20; TEMP 36.9; O2SAT 100
[2025-06-05] MEDS: oxyCODONE HCl Immed Release 5 MG TABLET PO (22:35)
[2025-06-05 22:38] VITALS: BP 159/76; PULSE 71; RESP 20; TEMP 36.9; O2SAT 100
== END 2025-06-05 22:46 | disposition home or self-care (01) ==
PROVIDERS: Physician Assistant Medical; Emergency Provider Emergency Medicine
DX: M79.661 Pain in right lower leg (principal); Z86.718 Personal history of other venous thrombosis and embolism; Z79.01 Long term (current) use of anticoagulants; Z87.39 Personal history of other diseases of the musculoskeletal system and connective tissue; Z87.442 Personal history of urinary calculi; Z79.899 Other long term (current) drug therapy; Z91.81 History of falling
CPT/HCPCS: 36415; 71275; 72192; 80053; 83735; 84484; 85025; 85610; 85730; 93005; 93926; 93971; 99285; J0131; Q9967

== ENCOUNTER → 2025-06-05 14:59 | Outpatient (BNV) | payer OTHER, SELFPAY | PROVIDERS: Visit Provider Radiology Diagnostic Radiology | DX: R07.9 Chest pain, unspecified (principal); Z04.3 Encounter for examination and observation following other accident; R20.2 Paresthesia of skin; M79.661 Pain in right lower leg | CPT/HCPCS: 71275; 72192; 93926; 93971 ==

== ENCOUNTER → 2025-06-05 15:01 | Outpatient (BNV) | payer OTHER, SELFPAY | PROVIDERS: Emergency Provider Emergency Medicine; Visit Provider Internal Medicine Cardiovascular Disease | DX: R07.9 Chest pain, unspecified (principal) | CPT/HCPCS: 93010 ==

== ENCOUNTER 2025-06-16 09:00 | Outpatient (AMB) | payer OTHER, SELFPAY ==
[2025-06-16 09:07] VITALS: BMI 26.4
--- NOTE | 2025-06-16 09:07 | A.OFFVIS_ITS ---
Vital Signs 06/16/25 09:07 Height 5 ft 1 in Weight 140 lb BMI 26.4 Intake Visit Reasons: FC-Rt lower leg hamstring injury DOI 03/31/25 Intake Note: Noreen is a 45 year old female who presents today for a evaluation of her Rt lower leg hamstring injury DOI 03/31/25. Patient reports she was cleaning her back yard when she was pulling something and she fell. She mentions her pain is a 7 on the pain scale. Patient states she was taking tylenol and Motrin with no relief, she also mentions that she was given a muscle spasm medication which gave her relief. IMPRESSION: 1. Mild peripheral artery disease evident. 2. No arterial thrombosis Allergies Penicillins (PENICILLINS) Allergy (Intermediate, Verified 06/05/25 15:03) HIVES levofloxacin (From LEVAQUIN) Allergy (Mild, Verified 06/05/25 15:03) hives cetirizine (Zyrtec) Allergy (Unknown, Verified 06/05/25 15:03) palpitations lamotrigine (LAMOTRIGINE) Allergy (Unknown, Verified 06/05/25 15:03) blurry vision latex (LATEX) Allergy (Unknown, Verified 06/05/25 15:03) HIVES pineapple Allergy (Verified 06/05/25 15:03) Unknown HPI HPI FC-Rt lower leg hamstring injury DOI 03/31/25: Details: Ms. Morrison is a 45-year-old female who presents to the office today for right lower extremity pain, numbness, tingling and weakness. She reports that the pain begins at the lower back and radiates for the entire right lower extremity. She also endorses numbness and tingling in her toes. She reports that she was diagnosed with a blood clot in the right lower extremity and is currently taking Eliquis. Additionally, she reports that she was seeing a spine surgeon a few years ago who recommended no surgery at that time and to postpone future surgical procedures as long as possible. She is unsure who the surgeon is. 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 Mother No problems noted. Brother No problems noted. Brother No problems noted. Brother No problems noted. Brother No problems noted. Brother No problems noted. Brother No problems noted. Sister No problems noted. Sister No problems noted. Sister No problems noted. Son No problems noted. Son No problems noted. Son No problems noted. Daughter No problems noted. Daughter No problems noted. Social History Household Members Other:: 5 kids, single Alcohol intake: never Patient Tobacco Use Status: Never used Tobacco e-Cigarette/Vaping Use: Never Used Current occupational status: unemployed and disabled Review of Systems Const All systems reviewed & are unremarkable except as noted in HPI and below Physical Exam Vital Signs: BMI result Body Mass Index 26.4 Const General: cooperative, healthy appearing and no acute distress Resp Effort & Inspection: normal respiratory effort and able to speak in complete sentences Extrem Other: Right hip: Full hip ROM in all planes. No tenderness to palpation over the greater trochanteric bursa. 3/5 strength with resisted hip flexion, knee extension, abduction, and abduction. Difficulty with performing straight leg raise with reproducible pain and weakness. Reports numbness and tingling in all digits. Able to dorsiflex and plantar flex. Psych Appearance: grossly normal Mental Status: mental status grossly normal Attitude: cooperative Assessment & Plan Assessment & Plan (1) Spondylosis of lumbar region without myelopathy or radiculopathy: Code(s): M47.816 - Spondylosis without myelopathy or radiculopathy, lumbar region Category: Medical Plan Ms. Morrison is a 45-year-old female who presents to the office today for right lower extremity pain, numbness, tingling and weakness. She reports that the pain begins at the lower back and radiates for the entire right lower extremity. She also endorses numbness and tingling in her toes. She reports that she was diagnosed with a blood clot in the right lower extremity and is currently taking Eliquis. Additionally, she reports that she was seeing a spine surgeon a few years ago who recommended no surgery at that time and to postpone future surgical procedures as long as possible. She is unsure who the surgeon is. While in the office today, we discussed the role of physiatry and treatment of her lower back pain radiating to the right lower extremity causing weakness. She has scheduled a follow up appointment with Dr. Merceeds for further evaluation and treatment. She will follow up with Orthopedics p.r.n., sooner if needed. Coding Level of Care Code Est Pt Level 3 (32848) Diagnoses Spondylosis of lumbar region without myelopathy or radiculopathy M47.816
--- OUTSIDE RECORDS SUMMARY | 2025-06-16 09:26 | XMS_ITS | Encounter Summary ---
Author Organization [employer] [facility] Address [address] 7t [place] [address] Care Team Providers Care Greenhouse Transplanter Name Role Phone Alireza Desai NP Primary Care Provider [phone] Encounter Details Date Type Department Care Team (Late st Contact Info) Description 07/27/2023 Orders Only [facility] MEDICAL [address] [place], [place] [phone] Provider, MD Becky Social History Tobacco Use [...] Care Team (Late st Contact Info) Description 07/31/2025 2:00 PM EST Office Visit [facility] MED[facility] [address] [place] [address] Alireza Desai NP [address] [place] [address] documented as of this encounter Procedures Procedure Name Priority Date/Time Associated Diagnosis Comments HM MAMMOGRAPHY Routine 12/13/2022 documented in this encounter Results * Hm Mammography (12/13/2022) Anatomical Region Laterality Modality Other Historical Provider HEALTH MAINTENANCE Final Result documented in this encounter Visit Diagnoses Not on filedocumented in this encounter Care Teams Greenhouse Transplanter Relationship Specialty Start Date End Date Alireza Desai NP [address] [place] [address] PCP - General Internal Medicine 11/07/22 documented as of this encounter
--- OUTSIDE RECORDS SUMMARY | 2025-06-16 09:26 | XMS_ITS | Encounter Summary ---
Author Organization [employer] Address [address] 7[address] [place] [address] Care Team Providers Care Breed To Wean Production Technician Name Role Phone Alireza Desai NP Primary Care Provider Encounter Details Date Type Department Care Team (Late st Contact Info) Description 05/21/2025 Orders Only [facility] [address] [place] [address] Alireza Desai NP [address] [place] [address] Social History Tobacco Use Types Packs/Day Years [...] 07/31/2025 2:00 PM EST Office Visit [facility] [address] [place] [address] Alireza Desai NP [address] [place] [address] documented as of this encounter Procedures Procedure Name Priority Date/Time Associated Diagnosis Comments US LOWER EXTREMITY VENOUS RIGHT Routine 05/19/2025 10:55 AM EDT documented in this encounter Results * VASC US Lower Extremity Venous Right (05/19/2025 10:55 AM EDT) Alireza Desai NP CV VASCULAR PROCEDURES Final Result documented in this encounter Visit Diagnoses Not on filedocumented in this encounter Care Teams Breed To Wean Production Technician Relationship Specialty Start Date End Date Alireza Desai NP [address] [place] [address] PCP - General Internal Medicine 11/07/22 documented as of this encounter
--- OUTSIDE RECORDS SUMMARY | 2025-06-16 09:26 | XMS_ITS | Clinical Summary ---
Author Organization [employer] [facility] Address [address] [place] [address] 7t [place] [address] Care Team Providers Care Graphics Specialist Name Role Phone Alireza Desai NP Primary Care Provider Allergies Active Allergy Reactions Criticality Noted Date Comments Lamotrigine 10/07/2022 Other reaction(s): Hyper-aggressive Latex 01/06/2020 Other reaction(s): Hives Levofloxacin Unknown 10/07/2022 Penicillamine Rash Low 10/07/2022 Penicillins 01/06/2020 Other reaction(s): Skin irritation Black Victoria Flavoring Agent (Non-Screening) Hives 10/07/2022 ONLY [place]S ALLERGY TO [place] = hives Cetirizine Anaphylaxis High 01/08/2023 Medications acetaminophen (Tylenol 8 Hour) 650 MG ER tabletIndications:Tax Map Technician jose manuel nonintractable headache, unspecified headache type Take 1 tablet (650 mg) by mouth every 8 (eight) hours if needed for mild pain. Do not crush, chew, or split. 90 tablet 1 023 Active oxyCODONE-acetaminophe n (Percocet) 5-325 MG tabletIndications:Tax Map Technician jose manuel right-sided low back pain with [...] other specified vein of right lower extremity (HCC) Take 1 tablet (5 mg) by mouth 2 times daily. 120 tablet 025 Active ondansetron ODT (Zofran-ODT) 4 MG disintegrating tablet 025 Active cyclobenzaprine (Flexeril) 5 MG tabletIndications:Dege neration of intervertebral disc of lumbar region with discogenic back pain and lower extremity pain Take 1 tablet (5 mg) by mouth if needed at bedtime for muscle spasms. 30 tablet 025 Active meclizine (Antivert) 25 MG tabletIndications:Edouard gn paroxysmal positional vertigo, unspecified laterality Take 1 tablet (25 mg) by mouth if needed in the morning, at noon, and at bedtime for dizziness. 30 tablet 1 023 2024 Discontinued amitriptyline (Elavil) 25 MG tabletIndications:Tax Map Technician jose manuel nonintractable headache, unspecified headache type [...] 2024 Discontinued oxyCODONE-acetaminophe n (Percocet) 5-325 MG tabletIndications:Tax Map Technician jose manuel right-sided low back pain with [...] Encounters Date Type Department Care Team Description 06/13/[address] [address] Alireza Desai NP PFLMDriss BENITEZ 06/09/2025 12:00 PM EDT Office Visit [address] [address] [place], [place], PIA Degeneration of intervertebral disc of lumbar region with discogenic back pain and lower extremity pain (Primary Dx); Nausea; Acute deep vein thrombosis (DVT) of other specified vein of right lower extremity (CMS/HCC) 06/09/2025 Results Follow-Up [address] [address] [place], [place], PIA MR Lumbar Spine w/o Contrast 06/08/2025 Results Follow-Up [address] [place] [address] Alireza Desai NP CBC auto differential 06/08/2025 Orders Only [facility] Information Management [address] [place] [address] Alireza Desai NP 06/07/[address] [address] Alireza Desia NP Need ED notes from [facility] 06/07/2025 Orders Only [facility] [address] [place] [address] Alireza Desai NP 06/06/[address] [address] Alireza Desai NP hospital discharge, obtain hospital records 06/01/2025 12:30 PM EDT Office Visit [address] [address] Alireza Desai NP Acute deep vein thrombosis (DVT) of other specified vein of right lower extremity (CMS/HCC) (Primary Dx); Chronic right-sided low back pain with right-sided sciatica; Pain of right thigh; Hyperlipidemia, unspecified hyperlipidemia type 05/30/2025 Travel 05/24/2025 10:00 AM EDT Office Visit [address] [address] [facility] Acute deep vein thrombosis (DVT) of other specified vein of right lower extremity (CMS/HCC) (Primary Dx); Chronic right-sided low back pain with right-sided sciatica; Hypertension, unspecified type 05/24/2025 Telephone [facility] [address] [place] [address] Susana Harrell LPN pain in leg, hip, and back 05/23/2025 Telephone [facility] Information Management [address] [place] [address] Alireza Desai NP 05/21/2025 Orders Only [facility] [address] [place] [address] Alireza Desai NP 05/16/2025 9:30 AM EDT Office Visit [facility] MEDICAL [address] [place] [address] Shelly Styles MD Right-sided low back pain with right-sided sciatica, unspecified chronicity (Primary Dx); Hyperlipidemia, unspecified hyperlipidemia type; Hypertension, unspecified type 05/03/2025 Telephone [facility] [address] [place] [address] Alireza Desai NP ED Visit 05/03/2025 Orders Only [facility] [address] [place] [address] ProviderBecky MD 04/21/[address] [facility] MEDICAL [address] [place] [address] Alireza Desai NP hospital discharge, obtain hospital [...] the past 12 months, has t he [employer], gas, oil or water [employer] threatened to shut off services in your [...] Sign Reading Time Taken Comments Blood Pressure 121/84 06/09/2025 12:23 PM EDT Pulse 108 06/09/2025 12:23 PM EDT Temperature 37 C (98.6 F) 06/09/2025 12:23 PM EDT Respiratory Rate - - Oxygen Saturation 98% 06/09/2025 12:23 PM EDT Inhaled Oxygen Concentration - - Weight 72.6 kg (160 lb) 06/09/2025 12:23 PM EDT Height 152.4 cm (5') 06/09/2025 12:23 PM EDT Body Mass Index 31.25 06/09/2025 12:23 PM EDT Plan of Treatment Upcoming Encounters Date Type Department Care Team (Late st Contact Info) Description 07/31/2025 2:00 PM EST Office Visit [facility] MED[facility] [address] [place] [address] Alireza Desai NP [address] [place] [address] Health Maintenance Due Date Last Done Comments [...] 11/10/2022, 11/10/19 23 SDOH Screening 11/10/2023 11/10/2022 Dental X-Ray: Full Mouth 05/31/2024 05/30/2021 Mammogram 12/16/2024 12/16/2022, 12/13/2022 COVID-19 Vaccine ( - season) 2025 Influenza Vaccine (#1) 2025 07/17/2021, 2001 Tobacco Screening 06/09/2026 06/09/2025 Zoster Vaccines (1 of 2) 2028 Lipid [...] Procedure Name Priority Date/Time Associated Diagnosis Comments BASIC METABOLIC PANEL Routine 06/06/2025 9:22 AM EDT ECG 12-LEAD Routine 06/05/2025 1:[address] PELVIS WO CONTRAST Routine 06/05/2025 1:[address] ANGIOGRAM CHEST INTERPRETATION Routine 06/05/2025 1:46 PM EDT US ARTERIAL DUPLEX LEG RT Routine 06/05/2025 1:46 PM EDT US LOWER EXTREMITY VENOUS RIGHT Routine 06/05/2025 1:45 PM EDT CBC WITH AUTO DIFFERENTIAL Routine 06/05/2025 1:44 PM EDT MR LUMBAR SPINE WO CONTRAST Routine 06/03/2025 Right-sided low back pain with right-sided sciatica, unspecified chronicity US LOWER EXTREMITY VENOUS RIGHT Routine 05/19/2025 [...] Recently Relevant to Health Maintenance Results * Basic Metabolic Panel (06/06/2025 9:22 AM EDT) Blood Venous blood specimen / Unknown Alireza Desai NP LAB BLOOD ORDERABLES Final R esult * ECG 12 lead (06/05/2025 1:48 PM EDT) Alireza Desai NP ECG ORDERABLES Final Result * CT Pelvis wo contrast (06/05/2025 1:47 PM EDT) Anatomical Region Laterality Modality Computed Tomogra phy Alireza Desai NP IMG CT PROCEDURES Final Resu lt * CT angiogram chest interpretation (06/05/2025 1:46 PM EDT) Anatomical Region Laterality Modality Computed Tomogra phy Alireza Desai NP IMG CT PROCEDURES Final Resu lt * US arterial duplex LEG RT (06/05/2025 1:46 PM EDT) Anatomical Region Laterality Modality Abdomen Ultrasound Alireza Desai NP IMG US PROCEDURES Final Resu lt * VASC US Lower Extremity Venous Right (06/05/2025 1:45 PM EDT) Only the most recent of2 resultswithin the time period is included. Alireza Desai NP CV VASCULAR PROCEDURES Final Result * CBC auto differential (06/05/2025 1:44 PM EDT) Blood Venous blood specimen / Unknown Alireza Desai NP LAB BLOOD ORDERABLES Final R esult * MR Lumbar Spine w/o Contrast (06/03/2025) Anatomical Region Laterality Modality Spine, L-spine Magnetic Resonan ce Shelly Styles MD IMG MRI PROCEDURES Final Result * XR LUMBAR SPINE [...] 6:05 AM EDT Performed at: 01 - [facility] [id number] Railway Head Tender: Nanda Alarcon MD, Phone: [phone] Alireza Desai NP LAB BLOOD ORDERABLES Final R esult [facility] 1 * Hm Colonoscopy (01/06/2023) Historical Provider HEALTH MAINTENANCE Final Result * Hm Mammography (12/16/2022) Anatomical Region Laterality Modality Other Historical Provider HEALTH MAINTENANCE Final Result from Last 3 Months or Most Recently Relevant to Health Maintenance Insurance VS [facility] [address] [facility] Care Teams Graphics Specialist Relationship Specialty Start Date End Date Alireza Desai NP [address] [place] [address] PCP - General Internal Medicine 11/07/22
--- OUTSIDE RECORDS SUMMARY | 2025-06-16 09:26 | XMS_ITS | Encounter Summary ---
Author Organization [employer] [facility] Address [address] [facility] 7t [place] [address] Care Team Providers Care Date Pitter Name Role Phone Alireza Desai NP Primary Care Provider [phone] Reason for Visit * Reason Onset Date Comments PFCONCHITA PPW 06/13/2025 Encounter Details Date Type Department Care Team (Late st Contact Info) Description 06/13/2025 Telephone Daniel [facility] MEDICAL [address] [place] [address] Alireza Desai NP [address] [place] [address] PFLMA PPW Social History Tobacco Use Types Packs/Day Years [...] encounter Miscellaneous Notes * Telephone Encounter - JOAO Howard - 06/13/2025 12:57 PM EDT Patient dropped PFLMA PPW off to the front office on 06/02/25. I called Noreen today 06/13/25 to see what the need was for her spouse to have the PFLMA for her, she did not answer I left her a detailed message regarding the PFLMA PPW, what we are looking for How long does the she need her spouse kathia out for 6 months or just few days, every other day everyday, intermediate time, what is the need for the PFLMA does need help in the shower, she need help dressing etc. I did ask her to please call back with details for Aaron as there was no details on the PPW handed to Aaron. documented in this encounter Plan of Treatment Upcoming Encounters Date Type Department Care Team (Late st Contact Info) Description 07/31/2025 2:00 PM EST Office Visit Daniel [facility] MEDICAL [address] [place] [address] Alireza Desai NP [address] [place] [address] documented as of this encounter Visit Diagnoses Not on filedocumented in this encounter Care Teams Date Pitter Relationship Specialty Start Date End Date Alireza Desai NP [address] [place] [address] PCP - General Internal Medicine 11/07/22 documented as of this encounter
--- OUTSIDE RECORDS SUMMARY | 2025-06-16 09:26 | XMS_ITS | Encounter Summary ---
Author Organization [employer] Address [address] [facility] 7t [place] [address] Care Team Providers Care Inside Sales Name Role Phone Alireza Desai NP Primary Care Provider [phone] Reason for Visit * Reason Onset Date Comments Need ED notes from [facility] 06/07/2025 Encounter Details Date Type Department Care Team (Late st Contact Info) Description 06/07/2025 Telephone Daniel [facility] MEDICAL [address] [place] [address] Alireza Desai NP [address] [place] [address] Need ED notes from [facility] Social History Tobacco Use Types Packs/Day Years [...] encounter Miscellaneous Notes * Telephone Encounter - Alireza Desai NP - 06/07/2025 3:48 PM EDT Notes from [facility] ED indicate that patient was seen in [facility] ED on 06/05/25 and had multiple arterial and venous imaging studies of her LE, as well as imaging of her low back. Please try to get all those records as soon as possible. thanks documented in this encounter Plan of Treatment Upcoming Encounters Date Type Department Care Team (Late st Contact Info) Description 07/31/2025 2:00 PM EST Office Visit Daniel [facility] MED[facility] [address] [place] [address] Alireza Desai NP [address] [place] [address] documented as of this encounter Visit Diagnoses Not on filedocumented in this encounter Care Teams Inside Sales Relationship Specialty Start Date End Date Alireza Desai NP [address] [place] [address] PCP - General Internal Medicine 11/07/22 documented as of this encounter
--- OUTSIDE RECORDS SUMMARY | 2025-06-16 09:26 | XMS_ITS | Encounter Summary ---
Author Organization [employer] Address [address] [facility] [address] 7t [place] [address] Care Team Providers Care Geography Department Chair Name Role Phone Alireza Desai NP Primary Care Provider Encounter Details Date Type Department Care Team (Late st Contact Info) Description 05/23/2025 Telephone [facility] [address] [place] [address] Alireza Desai NP [address] [place] [address] Social History Tobacco Use Types Packs/Day Years [...] 07/31/2025 2:00 PM EST Office Visit Daniel [facility] MEDICAL [address] [place] [address] Alireza Desai NP [address] [place] [address] documented as of this encounter Visit Diagnoses Not on filedocumented in this encounter Care Teams Geography Department Chair Relationship Specialty Start Date End Date Alireza Desai NP [address] [place] [address] PCP - General Internal Medicine 11/07/22 documented as of this encounter
--- OUTSIDE RECORDS SUMMARY | 2025-06-16 09:26 | XMS_ITS | Encounter Summary ---
Author Organization [employer] [facility] Address [address] [place] [address] 7t [place] [address] Care Team Providers Care Ultrasound Technologist Sonographer Name Role Phone Alireza Desai NP Primary Care Provider Encounter Details Date Type Department Care Team (Late st Contact Info) Description 12/16/2022 Orders Only [facility] MEDICAL [address] [place] [address] Provider, MD Becky Social History Tobacco Use [...] Description 07/31/2025 2:00 PM EST Office Visit [facility] MEDICAL [address] [place] [address] Alireza Desai NP [address] [place] [address] documented as of this encounter Procedures Procedure Name Priority Date/Time Associated Diagnosis Comments MAMMOGRAPHY Routine 12/16/2022 documented in this encounter Results * Hm Mammography (12/16/2022) Anatomical Region Laterality Modality Other us Historical Provider MD HEALTH MAINTENANCE Final Result documented in this encounter Visit Diagnoses Not on filedocumented in this encounter Care Teams Ultrasound Technologist Sonographer Relationship Specialty Start Date End Date Alireza Desai NP [address] [place] [address] PCP - General Internal Medicine 11/07/22 documented as of this encounter
--- OUTSIDE RECORDS SUMMARY | 2025-06-16 09:26 | XMS_ITS | Encounter Summary ---
Author Organization [employer] Address [address] [facility] [address] 7t [place] [address] Care Team Providers Care Milk Treater Name Role Phone Alireza Desai NP Primary Care Provider [phone] Encounter Details Date Type Department Care Team (Late st Contact Info) Description 07/21/2023 Orders Only [facility] MEDICAL [address] [place] [address] Provider, MD Becky Social History Tobacco Use [...] 07/31/2025 2:00 PM EST Office Visit Daniel [facility] MEDICAL [address] [place] [address] Alireza Desai NP [address] [place] [address] documented as of this encounter Procedures Procedure Name Priority Date/Time Associated Diagnosis Comments HM COLONOSCOPY Routine 01/06/2023 documented in this encounter Results * Hm Colonoscopy (01/06/2023) Historical Provider HEALTH MAINTENANCE Final Result documented in this encounter Visit Diagnoses Not on filedocumented in this encounter Care Teams Milk Treater Relationship Specialty Start Date End Date Alireza Desai NP [address] [place] [address] PCP - General Internal Medicine 11/07/22 documented as of this encounter
--- OUTSIDE RECORDS SUMMARY | 2025-06-16 09:26 | XMS_ITS | Encounter Summary ---
Author Organization [employer] Address [address] [facility] [address] 7t [place] [address] Care Team Providers Care Strap Machine Operator Automatic Name Role Phone Alireza Desai NP Primary Care Provider Encounter Details Date Type Department Care Team (Late st Contact Info) Description 06/08/2025 Orders Only [facility] [address] [place] [address] Alireza Desai NP [address] [place] [address] Social History Tobacco Use Types Packs/Day Years [...] 07/31/2025 2:00 PM EST Office Visit Daniel [facility] MEDICAL 70 [place] [address] Alireza Desai NP [address] [place] [address] documented as of this encounter Procedures Procedure Name Priority Date/Time Associated Diagnosis Comments ECG 12-LEAD Routine 06/05/2025 1:[address] PELVIS WO CONTRAST Routine 06/05/2025 1:[address] ANGIOGRAM CHEST INTERPRETATION Routine 06/05/2025 1:46 PM EDT US ARTERIAL DUPLEX LEG RT Routine 2024 1:46 PM EDT US LOWER EXTREMITY VENOUS RIGHT Routine 06/05/2025 1:45 PM EDT CBC WITH AUTO DIFFERENTIAL Routine 06/05 1:44 PM EDT documented in this encounter Results * ECG 12 lead (06/05/2025 1:48 PM EDT) us Alireza Desai NP ECG ORDERABLES Final Result * CT Pelvis wo contrast (06/05/2025 1:47 PM EDT) Anatomical Region Laterality Modality Computed Tomogra phy us Alireza Desai NP IMG CT PROCEDURES Final Resu lt * CT angiogram chest interpretation (06/05/2025 1:46 PM EDT) Anatomical Region Laterality Modality Computed Tomogra phy us Alireza Desai NP IMG CT PROCEDURES Final Resu lt * US arterial duplex LEG RT (06/05/2025 1:46 PM EDT) Anatomical Region Laterality Modality Abdomen Ultrasound us Alireza Desai NP IMG US PROCEDURES Final Resu lt * VASC US Lower Extremity Venous Right (06/05/2025 1:45 PM EDT) us Alireza Desai NP CV VASCULAR PROCEDURES Final Result * CBC auto differential (06/05/2025 1:44 PM EDT) Blood Venous blood specimen / Unknown Result Tatyana Desai NP LAB BLOOD ORDERABLES Final R esult documented in this encounter Visit Diagnoses Not on filedocumented in this encounter Care Teams Strap Machine Operator Automatic Relationship Specialty Start Date End Date Alireza Desai NP [address] [place] [address] PCP - General Internal Medicine 11/07/22 documented as of this encounter
--- OUTSIDE RECORDS SUMMARY | 2025-06-16 09:26 | XMS_ITS | Encounter Summary ---
Author Organization [employer] Address [address] [facility] [address] 7t [place] [address] Care Team Providers Care Production Repairer Name Role Phone Alireza Desai NP Primary Care Provider [phone] Encounter Details Date Type Department Care Team (Late st Contact Info) Description 05/03/2025 Orders Only [facility] MEDICAL [address] [place] [address] Provider, MD Becky Social History Tobacco Use [...] 2:00 PM EST Office Visit Daniel [facility] MEDICAL 70 [place] [address] Alireza Desai NP [address] [place] [address] documented as of this encounter Procedures Procedure [...] on filedocumented in this encounter Care Teams Production Repairer Relationship Specialty Start Date End Date Alireza Desai NP [address] [place] [address] PCP - General Internal Medicine 11/07/22 documented as of this encounter
--- OUTSIDE RECORDS SUMMARY | 2025-06-16 09:26 | XMS_ITS | Encounter Summary ---
Author Organization [employer] Address [address] [facility] [address] 7t [place] [address] Care Team Providers Care Comb Fixer Name Role Phone Alireza Desai NP Primary Care Provider Encounter Details Date Type Department Care Team (Late st Contact Info) Description 06/07/2025 Orders Only [facility] Management [address] [place] [address] Alireza Desai NP [address] [place] [address] Social History Tobacco Use Types Packs/Day Years [...] 07/31/2025 2:00 PM EST Office Visit Daniel [facility] MEDICAL [address] [place] [address] Alireza Desai NP [address] [place] [address] documented as of this encounter Procedures Procedure Name Priority Date/Time Associated Diagnosis Comments BASIC METABOLIC PANEL Routine 06/06/2025 9:22 AM EDT documented in this encounter Results * Basic Metabolic Panel (06/06/2025 9:22 AM EDT) Blood Venous blood specimen / Unknown Alireza Desai NP LAB BLOOD ORDERABLES Final R esult documented in this encounter Visit Diagnoses Not on filedocumented in this encounter Care Teams Comb Fixer Relationship Specialty Start Date End Date Alireza Desai NP [address] [place] [address] PCP - General Internal Medicine 11/07/22 documented as of this encounter
--- OUTSIDE RECORDS SUMMARY | 2025-06-16 09:26 | XMS_ITS | Encounter Summary ---
Author Organization [employer] [facility] Address [address] [place] [address] 7 [place] [address] Care Team Providers Care Dog Or Horse Racing Official Name Role Phone Alireza Desai NP Primary [...] 07/31/2025 2:00 PM EST Office Visit Daniel [facility] MED[facility] [address] [place] [address] Alireza Desai NP [address] [place] [address] documented as of this encounter Visit Diagnoses Not on filedocumented in this encounter Care Teams Dog Or Horse Racing Official Relationship Specialty Start Date End Date Alireza Desai NP [address] [place] [address] PCP - General Internal Medicine 11/07/22 documented as of this encounter
--- OUTSIDE RECORDS SUMMARY | 2025-06-16 09:26 | XMS_ITS | Encounter Summary ---
Author Organization [employer] Address [address] [facility] 7t [place] [address] Care Team Providers Care Fender Finisher Name Role Phone Alireza Desai NP Primary Care Provider [phone] Encounter Details Date Type Department Care Team (Late st Contact Info) Description 06/08/2025 Results Follow-Up aDniel [facility] MEDICAL [address] [place] [address] Alireza Desai NP [address] [place] [address] CBC auto differential Social History Tobacco Use Types Packs/Day Years [...] Description 07/31/2025 2:00 PM EST Office Visit Thomas [facility] MEDICAL [address] [place] [address] Alireza Desai NP [address] [place] [address] documented as of this encounter Visit Diagnoses Not on filedocumented in this encounter Care Teams Fender Finisher Relationship Specialty Start Date End Date Alireza Desai NP [address] [place] [address] PCP - General Internal Medicine 11/07/22 documented as of this encounter
== END 2025-06-16 09:28 | disposition home or self-care (01) ==
LOC: HO.HOS 09:00
PROVIDERS: PCP Nurse Practitioner Community Health; Visit Provider Physician Assistant
DX: M47.816 Spondylosis without myelopathy or radiculopathy, lumbar region (principal)
CPT/HCPCS: 99213

== ENCOUNTER → 2025-06-16 09:00 | Outpatient (BNVA) | payer OTHER, SELFPAY | PROVIDERS: PCP Nurse Practitioner Community Health; Visit Provider Physician Assistant | DX: M47.816 Spondylosis without myelopathy or radiculopathy, lumbar region (principal) | CPT/HCPCS: 99212 ==

== ENCOUNTER 2025-07-06 14:51 | Outpatient (AMB) | payer OTHER, SELFPAY ==
--- NOTE | 2025-07-06 14:53 | MHC.OFFVIS ---
Vital Signs 07/06/25 14:58 Height 5 ft Weight 164 lb 8 oz BMI 32.1 BP 144/81 H Blood Pressure Location Rt brachial Position Sitting Pulse 93 Pulse Source Pulse Oximeter Pulse Oximetry (%) 98 Oxygen Delivery Method Room Air Intake Visit Reasons: DEGENERATION OF INTERVERTEBRAL DISC LUMBAR Intake Note: Pain today 05/24 Cyber Defense Forensics Analyst Required: No Accompanied by: Self / Same As Patient Allergies Penicillins (PENICILLINS) Allergy (Intermediate, Verified 07/06/25 14:57) HIVES levofloxacin (From LEVAQUIN) Allergy (Mild, Verified 07/06/25 14:57) hives cetirizine (Zyrtec) Allergy (Unknown, Verified 07/06/25 14:57) palpitations lamotrigine (LAMOTRIGINE) Allergy (Unknown, Verified 07/06/25 14:57) blurry vision latex (LATEX) Allergy (Unknown, Verified 07/06/25 14:57) HIVES pineapple Allergy (Verified 07/06/25 14:57) Unknown HPI Comments Details: The patient is a 45-year-old female presenting with chronic low back pain and right sided radiculopathy. The pain has been present for over five years and is described as tightness and burning, exacerbated by sitting, standing, bending, and lying down. The patient has undergone injections in the emergency room and physical therapy, although the latter was completed years ago and not recently for the back. The patient reports a history of a recent right lower extremity blood clot and peripheral artery disease, with a recent lower extremity ultrasound negative for deep vein thrombosis but showing mild peripheral artery disease. She also has a history of back and hamstring injuries from a mechanical fall on March 31, 2025 while cleaning her yard, which has contributed to her balance issues. Patient reports she landed on her right buttock and has been having right leg pain and weakness since then. She was seen several times in our ER since then and has received anti-inflammatories, Medrol Carlton, and muscle relaxants with continued symptoms. Patient reports she was seen by [facility] and has discussed surgical options but was promised partial symptoms relief with surgical outcome and has plans to follow up with them again, she cannot recall the name of Neurosurgeon. The patient has been on Eliquis for almost two months and is expected to continue until at least July-August, pending a follow-up with her provider. The patient has fibromyalgia but does not currently engage in specific treatments for it, although she walks for exercise. She denies smoking, caffeine, alcohol, and marijuana use. Patient reports she is on permanent disability since 2006 due to work-related injury in her back. - Onset: Pain has been present for over five years. - Quality: Described as tightness, burning, throbbing, shooting, hurting, aching, heavy, tingling, numbness, radiating. - Location: Primarily in the lower back, radiating to the right buttock and down into right leg laterally and posteriorly - Radiation: Pain radiates to the right leg, encircles the right buttock and hip and can extend to the side of the right leg. - Exacerbating factors: Sitting, standing, bending, and lying down. - Relieving factors: Lying down provides some relief, but prolonged lying is not feasible. - Interference: Pain affects daily activities, functioning, and sleep. - Affect: Pain impacts daily activities and sleep. - Analgesia: Currently on Eliquis; unable to take ibuprofen. Cyclobenzaprine, lidocaine patches, Percocet, gabapentin - Adverse Effects: No specific adverse effects from pain medications discussed. - Activities of Daily Living: Pain affects daily functioning, mobility and sleep. - Aberrant Drug Related Behaviors: No aberrant behaviors reported. PRIOR Dr. Ann 07/09/2020: Noreen Is very pleasant 40 years old female who presents in my office after 1 year and a half of absent. She at that time in December of 2018 was seen by for cervicalgia. She presented with chronic severe worsening neck, low back, and left hip/leg pain. She has had pain for years however about 2 years ago her pain started to worsen out of no where, involving her left side, most notably radiating into her left hip/groin. she has been provided multiple sessions of PT, she reported no effectiveness of physical therapy which was done for her about 1 year ago. She tried multiple medications, she was sent for MRI of cervical thoracic and lumbar spine because was very much concerned about symptoms he found on physical examination see as below. She was subject of hip injection in the past to treat osteoarthritis of her hips.. The injection did not improve. Her pain continued to worsen now involving neck pain with hand numbness, and frequent loss of balance. She was sent for neurologist consult, she received EEG. She never received image of the brain with MRI of CT scan. She was not diagnosed with any neurological condition. [facility] Medical History (Updated 07/06/25 @ 22:52 by PIA Duong) Fibrocystic changes of left breast PTSD (post-traumatic stress disorder) IBS (irritable bowel syndrome) Constipation Bipolar 1 disorder MCI (mild cognitive impairment) Kidney stone Cervical disc disease Tension headache Migraine with aura Dizziness Disc degeneration, lumbar Spondylosis of lumbar region without myelopathy or radiculopathy Arthropathy of cervical facet joint Surgical History History of esophagogastroduodenoscopy (EGD) Hx of prior ablation treatment History of section History of bilateral tubal ligation Family History Father No problems noted. Mother No problems noted. Brother No problems noted. Brother No problems noted. Brother No problems noted. Brother No problems noted. Brother No problems noted. Brother No problems noted. Sister No problems noted. Sister No problems noted. Sister No problems noted. Son No problems noted. Son No problems noted. Son No problems noted. Daughter No problems noted. Daughter No problems noted. Social History Household Members Other:: 5 kids, single Alcohol intake: never Patient Tobacco Use Status: Never used Tobacco e-Cigarette/Vaping Use: Never Used Current occupational status: unemployed and disabled Review of Systems Const Details: - Musculoskeletal: Reports chronic low back pain with radiation to the right leg. - Cardiovascular: Reports history of blood clot and peripheral artery disease. - Neurological: Reports balance issues, weakness and numbness in the right leg. - General: Denies smoking, caffeine, alcohol, and marijuana use. All systems reviewed & are unremarkable except as noted in HPI and below Physical Exam Vital Signs: Last Vital Signs Pulse 93 07/06/25 14:58 BP 144/81 H 07/06/25 14:58 Pulse Ox 98 07/06/25 14:58 Oxygen Delivery Method Room Air 07/06/25 14:58 BMI result Body Mass Index 32.1 General: Appears afebrile. Alert and oriented. Mood and affect appropriate. Follows and participates in conversation appropriately. Respiratory effort is unlabored. No cough. Able to transition from sit to stand unassisted. Ambulates with normal heel strike and toe off on the left, reports back and leg pain with toe and heel standing on the right. General: Yes no CVA tenderness Back/Spine/Pelvis Other: Limited lumbar ROM. Lumbar flexion and extension reproduces moderate to severe pain. Demonstrates 5/5 left and 4/5 right strength of quadriceps bilaterally as well as flexion/dorsiflexion of bilateral feet against resistance. 2+ pedal pulses bilaterally. Straight leg rise with dorsiflexion positive on the right. +1 right +2 left patellar and +1 achilles reflexes bilaterally. Facet loading test positive bilaterally. Carlos?s, Gaenslen, Pelvic compression and Stinchfield tests are positive on the right. No groin pain with I/E hip rotations. Patient reports difficulty lifting or raisin her RLE and manually assists to left her right leg. Valsalva maneuver negative. Multiple widespread TTPs 16/16 bilaterally, including upper and lower extremities. Back: no CVA tenderness Cervical Spine: cervical ROM normal, cervical muscular tenderness and No Cervical spine tenderness Thoracic/Lumbar Spine: thoracic and lumbar spine normal to inspection, Thoracic/lumbar spine scar(s), Lasegue's sign positive on the right and localized, pain with thoraco-lumbar ROM, paraspinal muscle tenderness on the right greater than left, thoraco-lumbar ROM limited, No thoracic spinal tenderness and lumbar spinal tenderness (L4-S1) Sacroiliac joints: on the right tender to palpation and on the left nontender Extrem General: Yes capillary refill normal, Yes no clubbing, cyanosis or edema and Yes no calf tenderness Results Reviewed Results Reviewed: XR LUMBOSACRAL SPINE 05/02/25 CLINICAL INFORMATION: low back pain s/p fall COMPARISON: April 21, 2020 TECHNIQUE: Three views of the lumbosacral spine. FINDINGS: There are 5 nonrib-bearing lumbar segments. There is stable mild wedging of T12 and L1, likely physiologic in nature. Vertebral body height and alignment is preserved. Disc space narrowing in the lower thoracic and upper lumbar spine is stable. IMPRESSION: Stable x-ray, no acute abnormality. MR lumbar spine wo con 06/05/25 Reason for Exam: RIGHT SIDED LBP WITH RIGHT SIDE SCIATICA Findings: No scoliosis or spondylolisthesis. No acute fracture or pathologic bone lesion. Cauda equina and conus medullaris within normal limits. The retroperitoneal and paraspinal soft tissues are unremarkable. Individual levels: T11-T12: Small posterior disc protrusion with no significant central canal stenosis or neural foraminal narrowing. T12-L4: Unremarkable. L4-L5: Moderate broad-based disc protrusion mild bilateral neural foraminal narrowing. No central canal stenosis. Tiny disc fissure noted. L5-S1: Moderate posterior and right eccentric disc protrusion. Moderate bilateral neural foraminal narrowing as well as mass effect upon the right-sided descending S1 nerve root. IMPRESSION: Degenerative changes most pronounced at L5-S1. Assessment & Plan Assessment & Plan (1) Disc degeneration, lumbar: Code(s): M51.36 - Other intervertebral disc degeneration, lumbar region Category: Medical (2) Muscle spasm: Code(s): M62.838 - Other muscle spasm Category: Medical (3) Right lumbar radiculopathy: Code(s): M54.16 - Radiculopathy, lumbar region (4) Lumbar spondylosis: Code(s): M47.816 - Spondylosis without myelopathy or radiculopathy, lumbar region Category: Medical (5) Fibromyalgia: Code(s): M79.7 - Fibromyalgia Category: Medical Plan The plan includes initiating physical therapy for the back pain, prior to considering right L5-S1 TFESI injections, pending approval to hold Eliquis for three days from prescribing provider. Expectations, risks and benefits were reviewed. Script provided for PT at [facility] per patient's request. All questions and concerns have been answered and patient agreed with the treatment plan. Follow up after PT and sooner as needed. Patient was informed and verbally consented to the use of an ambient scribe for clinic note documentation during this visit. Orders: Orders PT Evaluation and Treatment Today M51.36 - Other intervertebral disc degeneration, lumbar region, M54.16 - Radiculopathy, lumbar region, M62.838 - Other muscle spasm Coding Level of Care Code New Pt Level 4 (51222) Diagnoses Disc degeneration, lumbar M51.36 Muscle spasm M62.838 Right lumbar radiculopathy M54.16 Lumbar spondylosis M47.816 Fibromyalgia M79.7
[2025-07-06 14:58] VITALS: BP 144/81; PULSE 93; O2SAT 98; BMI 32.1
--- OUTSIDE RECORDS SUMMARY | 2025-07-06 18:42 | XMS_ITS | Encounter Summary ---
Author Organization [facility] Address [address] 7t [place] [address] Care Team Providers Care Tour Bus Driver Name Role Phone Alireza Desai NP Primary Care Provider [phone] Reason for Visit * Reason Onset Date Comments Refill pain meds 07/05/2025 Encounter Details Date Type Department Care Team (Late st Contact Info) Description 07/05/2025 Telephone [facility] [address] [place] [address] Alireza Desai NP [address] [place] [address] Refill pain meds Social History Tobacco Use Types Packs/Day Years [...] Telephone Encounter - Alireza Desai NP - 07/05/2025 8:34 AM EDT Pt with known disc issue on lumbar spine, neurosurgery consult pending. Rx sent for short refill ofPercocet. documented in this encounter Plan of Treatment Upcoming Encounters Date Type Department Care Team (Late st Contact Info) Description 07/25/2025 9:30 AM EST Office Visit [facility] OPTOMET[facility] [address] [place] [address] Ramon Salinas OD [address] [place] [address] 07/31/2025 2:00 PM EST Office Visit [facility] MEDICAL [address] [place] [address] Alireza Desai NP [address] [place] [address] documented as of this encounter Visit Diagnoses Diagnosis Chronic right-sided low back pain with right-sided sciatica documented in this encounter Care Teams Tour Bus Driver Relationship Specialty Start Date End Date Alireza Desai NP [address] [place] [address] PCP - General Internal Medicine 11/07/22 documented as of this encounter
--- OUTSIDE RECORDS SUMMARY | 2025-07-06 18:42 | XMS_ITS | Encounter Summary ---
Author Organization [employer] Address [address] [place] [address] Care Team Providers Care Plumbing Mechanic Name Role Phone Alireza Desai NP Primary Care Provider Encounter Details Date Type Department Care Team (Late st Contact Info) Description 05/23/2025 Telephone [facility] [address] [place] [address] Alireza Desai NP [address] [place] [address] Social History Tobacco Use Types Packs/Day Years [...] Description 07/25/2025 9:30 AM EST Office Visit [facility] OPTOMETRY [address] [place] [address] Ramon Salinas, OD [address] [place] [address] 07/31/2025 2:00 PM EST Office Visit [facility] MEDICAL [address] [place] [address] Alireza Desai NP [address] [place] [address] documented as of this encounter Visit Diagnoses Not on filedocumented in this encounter Care Teams Plumbing Mechanic Relationship Specialty Start Date End Date Alireza Desai NP [address] [place] [address] PCP - General Internal Medicine 11/07/22 documented as of this encounter
--- OUTSIDE RECORDS SUMMARY | 2025-07-06 18:42 | XMS_ITS | Encounter Summary ---
Author Organization [facility] Address [address] [place] [address] 7 [place] [address] Care Team Providers Care Field Sales Manager Name Role Phone Alireza Desai NP [...] Description 07/25/2025 9:30 AM EST Office Visit [facility] OPTOMETRY [address] [place] [address] Ramon Salinas OD [address] [place] [address] 07/31/2025 2:00 PM EST Office Visit [facility] MEDICAL [address] [place] [address] Alireza Desai NP [address] [place] [address] documented as of this encounter Visit Diagnoses Not on filedocumented in this encounter Care Teams Field Sales Manager Relationship Specialty Start Date End Date Alireza Desai NP [address] [place] [address] PCP - General Internal Medicine 11/07/22 documented as of this encounter
--- OUTSIDE RECORDS SUMMARY | 2025-07-06 18:42 | XMS_ITS | Clinical Summary ---
Author Organization [employer] Address [address] [place] [address] 7t [place] [address] Care Team Providers Care Vacuum Kettle Cook Name Role Phone Alireza Desai NP Primary Care Provider Allergies Active Allergy Reactions Criticality Noted Date Comments Lamotrigine 10/07/2022 Other reaction(s): Hyper-aggressive Latex 01/06/2020 Other reaction(s): Hives Levofloxacin Unknown 10/07/2022 Penicillamine Rash Low 10/07/2022 Penicillins 01/06/2020 Other reaction(s): Skin irritation Black White Bird Flavoring Agent (Non-Screening) Hives 10/07/2022 ONLY [facility]NUTS ALLERGY TO [place] = hives Cetirizine Anaphylaxis High 01/08/2023 Medications acetaminophen (Tylenol 8 Hour) 650 MG ER tabletIndications :Chronic nonintractable headache, unspecified headache type Take 1 tablet (650 mg) by mouth every 8 (eight) hours if needed for mild pain. Do not crush, chew, or split. 90 tablet 1 07/14/20 23 Active [facility] Lidocaine Pain Relief 4 % patchIndications: Chronic right-sided low back pain with right-sided sciatica,Pain of right thigh Place 1 patch on the skin Once per day. 30 patch 1 06/01/20 25 Active apixaban (Eliquis) 5 MG tabletIndications :Acute deep vein thrombosis (DVT) of other specified vein of right lower extremity (HCC) Take 1 tablet (5 mg) by mouth 2 times daily. 120 tablet 06/01/20 25 Active ondansetron ODT (Zofran-ODT) 4 MG disintegrating tablet 06/05/20 25 Active cyclobenzaprine (Flexeril) 5 MG tabletIndications :Degeneration of intervertebral disc of lumbar region with discogenic back pain and lower extremity pain Take 1 tablet (5 mg) by mouth if needed at bedtime for muscle spasms. 30 tablet 06/09/20 25 Active oxyCODONE-acetami nophen (Percocet) 5-325 MG tabletIndications :Chronic right-sided low back pain with right-sided sciatica Take 1 tablet by mouth every 6 (six) hours if needed for moderate pain or severe pain. 20 tablet 07/05/20 25 Active oxyCODONE-acetami nophen (Percocet) 5-325 MG tabletIndications :Chronic right-sided low back pain with right-sided sciatica Take 1 tablet by mouth every 6 (six) hours if needed for moderate pain or severe pain. 20 tablet 06/01/20 25 025 Discontinued(R eorder (will not trigger notification to Pharmacy)) Active Problems Problem Noted Date Diagnosed Date Acute deep vein thrombosis (DVT) of right lower extremity 05/24/2025 Bipolar disorder 10/08/2022 Constipation 10/08/2022 Fibrocystic changes of left breast 10/08/2022 Hyperlipidemia 10/08/2022 Irritable bowel syndrome 10/08/2022 Obesity (BMI 30.0-34.9) 10/08/2022 Myopia of both eyes 10/08/2022 PTSD (post-traumatic stress disorder) 10/08/2022 Gastroesophageal reflux disease 10/07/2022 Fibromyalgia 10/07/2022 Encounters Date Type Department Care Team Description 07/05/2025 Telephone [facility] [address] [place] [address] Alireza Desai NP Refill pain meds 06/13/2025 Telephone [facility] [address] [place] [address] Alireza Desai NP PFLMA PPW 06/09/2025 12:00 PM EDT Office Visit [facility] [address] [place] [address] Hannah Cruz FNP Degeneration of intervertebral disc of lumbar region with discogenic back pain and lower extremity pain (Primary Dx); Nausea; Acute deep vein thrombosis (DVT) of other specified vein of right lower extremity (CMS/HCC) 06/09/2025 Results Follow-Up [address] [address] Hannah Cruz FNP MR Lumbar Spine w/o Contrast 06/08/2025 Results Follow-Up [address] [address] Alireza Desai NP CBC auto differential 06/08/2025 Orders Only [facility] Information Management [address] [place] [address] Alireza Desai NP 06/07/[address] [address] Alireza Desai NP Need ED notes from [facility] 06/07/2025 Orders Only [facility] [address] [place] [address] Alireza Desai NP 06/06/[address] [address] Alireza Desai NP hospital discharge, obtain hospital records 06/01/2025 12:30 PM EDT Office Visit [address] [address] Alireza Desai NP Acute deep vein thrombosis (DVT) of other specified vein of right lower extremity (CMS/HCC) (Primary Dx); Chronic right-sided low back pain with right-sided sciatica; Pain of right thigh; Hyperlipidemia, unspecified hyperlipidemia type 05/30/2025 Travel 05/24/2025 10:00 AM EDT Office Visit [address] [address] Hannah Cruz FNP Acute deep vein thrombosis (DVT) of other specified vein of right lower extremity (CMS/HCC) (Primary Dx); Chronic right-sided low back pain with right-sided sciatica; Hypertension, unspecified type 05/24/2025 Telephone [facility] [address] [place] [address] Susana Harrell LPN pain in leg, hip, and back 05/23/2025 Telephone [facility] Information Management [address] [place] [address] Alireza Desai NP 05/21/2025 Orders Only [facility] [address] [place] [address] Alireza Desai NP 05/16/2025 9:30 AM EDT Office Visit [facility] MED[facility] [address] [place] [address] Shelly Styles MD Right-sided low back pain with right-sided sciatica, unspecified chronicity (Primary Dx); Hyperlipidemia, unspecified hyperlipidemia type; Hypertension, unspecified type 05/03/2025 Telephone [facility] [address] [place] [address] Alireza Desai NP ED Visit 05/03/2025 Orders Only [facility] [address] [place] [address] ProviderBecky MD 04/21/2025 Telephone [facility] MED[facility] [address] [place] [address] Alireza Desai NP hospital discharge, obtain hospital [...] Description 07/25/2025 9:30 AM EST Office Visit [facility] [address] [place] [address] Rita Ramon, OD [address] [place] [address] 07/31/2025 2:00 PM EST Office Visit [facility] MED[facility] [address] [place] [address] Alireza Desai, BRYNN [address] [place] [address] Health Maintenance Due Date Last Done Comments [...] EDT) Blood Venous blood specimen / Unknown us Alireza Desai NP LAB BLOOD ORDERABLES [...] of2 resultswithin the time period is included. us Alireza Desai NP CV VASCULAR PROCEDURES [...] Anatomical Region Laterality Modality Radiographic Tita ging Becky Provider IMG XR PROCEDURES Final R esult [...] AM EDT Performed at: 01 - [facility] [address] [id number] Shrub Planter: Nanda Alarcon MD, Phone: [phone] Alireza Desai NP LAB BLOOD ORDERABLES Final R esult [facility] 1 * [facility] Colonoscopy (01/06/2023) us Historical Provider HEALTH MAINTENANCE Final Result * [facility] Mammography (12/16/2022) Anatomical Region Laterality Modality Other us Historical Provider HEALTH MAINTENANCE Final Result from Last 3 Months or Most Recently Relevant to Health Maintenance Insurance [facility] [address] [facility] Care Teams Vacuum Kettle Cook Relationship Specialty Start Date End Date Alireza Desai NP [address] [facility] [place] [address] PCP - General Internal Medicine 11/07/22
--- OUTSIDE RECORDS SUMMARY | 2025-07-06 18:42 | XMS_ITS | Encounter Summary ---
Author Organization [employer] Address [address] [place] [address] Care Team Providers Care Steel Post Installer Name Role Phone Alireza Desai NP Primary Care Provider [phone] Encounter Details Date Type Department Care Team (Late st Contact Info) Description 05/03/2025 Orders Only [facility] MEDICAL [address] [place] [address] Provider, MD Becky Social History Tobacco Use [...] Description 07/25/2025 9:30 AM EST Office Visit [facility] OPTOMETRY [address] [place] [address] Ramon Salinas, OD [address] [place] [address] 07/31/2025 2:00 PM EST Office Visit [facility] MEDICAL [address] [place] [address] Alireza Desai NP [address] [place] [address] documented as of this encounter Procedures Procedure [...] on filedocumented in this encounter Care Teams Steel Post Installer Relationship Specialty Start Date End Date Alireza Desai NP [address] [place] [address] PCP - General Internal Medicine 11/07/22 documented as of this encounter
--- OUTSIDE RECORDS SUMMARY | 2025-07-06 18:42 | XMS_ITS | Encounter Summary ---
Author Organization [facility] Address [address] 7[address] [place] [address] Care Team Providers Care Brokerage Office Manager Name Role Phone Alireza Desai NP Primary Care Provider [phone] Encounter Details Date Type Department Care Team (Late st Contact Info) Description 07/27/2023 Orders Only [facility] MEDICAL [address] [place], [place] [phone] Provider, MD Becky Social History Tobacco Use [...] Description 07/25/2025 9:30 AM EST Office Visit [facility] OPTOMETRY [address] [place] [address] Ramon Salinas, OD 73 [place] [address] 07/31/2025 2:00 PM EST Office Visit [facility] MEDICAL [address] [place] [address] Alireza Desai NP 70 [place] [address] documented as of this encounter Procedures Procedure Name Priority Date/Time Associated Diagnosis Comments HM MAMMOGRAPHY Routine 12/13/2022 documented in this encounter Results * Hm Mammography (12/13/2022) Anatomical Region Laterality Modality Other us Historical Provider HEALTH MAINTENANCE Final Result documented in this encounter Visit Diagnoses Not on filedocumented in this encounter Care Teams Brokerage Office Manager Relationship Specialty Start Date End Date Alireza Desai NP 70 [place] [address] PCP - General Internal Medicine 11/07/22 documented as of this encounter
--- OUTSIDE RECORDS SUMMARY | 2025-07-06 18:42 | XMS_ITS | Encounter Summary ---
Author Organization [employer] Address [address] 7t [place] [address] Care Team Providers Care Welder Apprentice Name Role Phone Alireza Desai NP Primary Care Provider Encounter Details Date Type Department Care Team (Late st Contact Info) Description 06/07/2025 Orders Only [facility] [address] [place] [address] Alireza Desai NP 70 [place] [address] Social History Tobacco Use Types Packs/Day Years [...] Description 07/25/2025 9:30 AM EST Office Visit [facility] OPTOMETRY 73 [place] [address] Ramon Salinas, OD 73 [place], [place] [phone] 07/31/2025 2:00 PM EST Office Visit [facility] MEDICAL [address] [place] [address] Alireza Desai NP 70 [place] [address] documented as of this encounter Procedures Procedure Name Priority Date/Time Associated Diagnosis Comments BASIC METABOLIC PANEL Routine 06/06/2025 9:22 AM EDT documented in this encounter Results * Basic Metabolic Panel (06/06/2025 9:22 AM EDT) Blood Venous blood specimen / Unknown Alireza Desai NP LAB BLOOD ORDERABLES Final R esult documented in this encounter Visit Diagnoses Not on filedocumented in this encounter Care Teams Welder Apprentice Relationship Specialty Start Date End Date Alireza Desai NP 70 [place] [address] PCP - General Internal Medicine 11/07/22 documented as of this encounter
--- OUTSIDE RECORDS SUMMARY | 2025-07-06 18:42 | XMS_ITS | Encounter Summary ---
Author Organization [employer] Address [address] [place] [address] Care Team Providers Care Centrifugal Casting Machine Tender Name Role Phone Alireza Desai NP Primary Care Provider [phone] Encounter Details Date Type Department Care Team (Late st Contact Info) Description 06/08/2025 Orders Only [facility] [address] [place] [address] Alireza Desai NP 70 [place] [address] Social History Tobacco Use Types Packs/Day Years [...] Office Visit [facility] OPTOMETRY 73 [place] [address] Ramon Salinas, OD 73 [place] [address] 07/31/2025 2:00 PM EST Office Visit [facility] MEDICAL 70 [place] [address] Alireza Desai NP 70 [place] [address] documented as of this encounter Procedures Procedure [...] Modality Computed Tomogra phy us Alireza Desai LIABILITY CLAIMS ADJUSTER IMG CT PROCEDURES Final Resu lt * [...] on filedocumented in this encounter Care Teams Centrifugal Casting Machine Tender Relationship Specialty Start Date End Date Alireza Desai NP 70 [place] [address] PCP - General Internal Medicine 11/07/22 documented as of this encounter
--- OUTSIDE RECORDS SUMMARY | 2025-07-06 18:42 | XMS_ITS | Encounter Summary ---
Author Organization [employer] Address [address] [place] [address] Care Team Providers Care Manager Ccu Name Role Phone Alireza Desai NP Primary Care Provider [phone] Encounter Details Date Type Department Care Team (Late st Contact Info) Description 06/08/2025 Results Follow-Up [facility] MEDICAL [address] [place] [address] Alireza Desai NP 70 [place] [address] CBC auto differential Social History Tobacco Use [...] Description 07/25/2025 9:30 AM EST [facility] OPT[facility]RY 73 [place], [place] [phone] Ramon Salinas, OD [address] [place] [address] 07/31/2025 2:00 PM EST Office Visit [facility] MEDICAL [address] [place] [address] Alireza Desai NP [address] [place] [address] documented as of this encounter Visit Diagnoses Not on filedocumented in this encounter Care Teams Manager Ccu Relationship Specialty Start Date End Date Alireza Desai NP 70 [place] [address] PCP - General Internal Medicine 11/07/22 documented as of this encounter
--- OUTSIDE RECORDS SUMMARY | 2025-07-06 18:42 | XMS_ITS | Encounter Summary ---
Author Organization [employer] Address [address] 7t [place] [address] Care Team Providers Care Wellfield Technician Name Role Phone Alireza Desai NP Primary Care Provider [phone] Reason for Visit * Reason Onset Date Comments Need ED notes from [facility] 06/07/2025 Encounter Details Date Type Department Care Team (Late st Contact Info) Description 06/07/2025 Telephone Daniel [facility] MEDICAL 70 [place] [address] Alireza Desai NP [address] [place] [address] Need ED notes from [facility] Social History Tobacco Use Types Packs/Day [...] - 06/07/2025 3:48 PM EDT Notes from [facility] ED indicate that patient was seen in [facility] ED on 06/05/25 and had multiple arterial and venous imaging studies of her LE, as well as imaging of her low back. Please try to get all those records as soon as possible. thanks documented in this encounter Plan of Treatment Upcoming Encounters Date Type Department Care Team (Late st Contact Info) Description 07/25/2025 9:30 AM EST Office Visit [facility] OPTOMETRY 73 [place] [address] Ramon Salinas OD 73 [place] [address] 07/31/2025 2:00 PM EST Office Visit [facility] MEDICAL 70 [place] [address] Alireza Desai NP [address] [place] [address] documented as of this encounter Visit Diagnoses Not on filedocumented in this encounter Care Teams Wellfield Technician Relationship Specialty Start Date End Date Alireza Desai NP [address] [place] [address] PCP - General Internal Medicine 11/07/22 documented as of this encounter
--- OUTSIDE RECORDS SUMMARY | 2025-07-06 18:42 | XMS_ITS | Encounter Summary ---
Author Organization [employer] Address [address] [place] [address] Care Team Providers Care Hand Violin Maker Name Role Phone Alireza Desai NP Primary Care Provider [phone] Encounter Details Date Type Department Care Team (Late st Contact Info) Description 07/21/2023 Orders Only [facility] MED[facility] [address] [place] [address] Provider, MD Becky Social History Tobacco Use [...] Description 07/25/2025 9:30 AM EST Office Visit [facility] OPTOMETRY 73 [place] [address] Ramon Salinas, OD 73 [place] [address] 07/31/2025 2:00 PM EST Office Visit [facility] MEDICAL 70 [place] [address] Alireza Desai NP 70 [place] [address] documented as of this encounter Procedures Procedure Name Priority Date/Time Associated Diagnosis Comments HM COLONOSCOPY Routine 01/06/2023 documented in this encounter Results * Hm Colonoscopy (01/06/2023) Historical Provider HEALTH MAINTENANCE Final Result documented in this encounter Visit Diagnoses Not on filedocumented in this encounter Care Teams Hand Violin Maker Relationship Specialty Start Date End Date Alireza Desai NP 70 [place] [address] PCP - General Internal Medicine 11/07/22 documented as of this encounter
--- OUTSIDE RECORDS SUMMARY | 2025-07-06 18:42 | XMS_ITS | Encounter Summary ---
Author Organization [employer] [facility] Address [address] 7t [place] [address] Care Team Providers Care Gear Nicker Name Role Phone Alireza Desai NP Primary Care Provider Encounter Details Date Type Department Care Team (Late st Contact Info) Description 12/16/2022 Orders Only [facility] MEDICAL [address] [place] [address] Provider, MD Becky Social History Tobacco Use [...] Description 07/25/2025 9:30 AM EST Office Visit [facility] OPTOMETRY [address] [place] [address] Ramon Salinas OD 73 [place] [address] 07/31/2025 2:00 PM EST Office Visit [facility] MEDICAL [address] [place] [address] Alireza Desai NP 70 [place] [address] documented as of this encounter Procedures Procedure Name Priority Date/Time Associated Diagnosis Comments MAMMOGRAPHY Routine 12/16/2022 documented in this encounter Results * Mammography (12/16/2022) Anatomical Region Laterality Modality Other us Historical Provider HEALTH MAINTENANCE Final Result documented in this encounter Visit Diagnoses Not on filedocumented in this encounter Care Teams Gear Nicker Relationship Specialty Start Date End Date Alireza Desai NP 70 [place] [address] PCP - General Internal Medicine 11/07/22 documented as of this encounter
--- OUTSIDE RECORDS SUMMARY | 2025-07-06 18:42 | XMS_ITS | Encounter Summary ---
Author Organization [employer] Address [address] [place] [address] Care Team Providers Care Waste Management Specialist Name Role Phone Alireza Desai NP Primary Care Provider Encounter Details Date Type Department Care Team (Late st Contact Info) Description 05/21/2025 Orders Only [facility] [address] [place] [address] Alireza Desai NP 70 [place] [address] Social History Tobacco Use Types Packs/Day Years [...] Description 07/25/2025 9:30 AM EST Office Visit [facility] OPTOMETRY [address] [place] [address] Ramon Salinas, OD 73 [place], [place] [phone] 07/31/2025 2:00 PM EST Office Visit [facility] MEDICAL [address] [place] [address] Alireza Desai NP [address] [place] [address] documented as of this encounter Procedures Procedure Name Priority Date/Time Associated Diagnosis Comments US LOWER EXTREMITY VENOUS RIGHT Routine 05/19/2025 10:55 AM EDT documented in this encounter Results * VASC US Lower Extremity Venous Right (05/19/2025 10:55 AM EDT) Alireza Desai NP CV VASCULAR PROCEDURES Final Result documented in this encounter Visit Diagnoses Not on filedocumented in this encounter Care Teams Waste Management Specialist Relationship Specialty Start Date End Date Alireza Desai NP [address] [place] [address] PCP - General Internal Medicine 11/07/22 documented as of this encounter
== END 2025-07-06 15:24 | disposition home or self-care (01) ==
LOC: HO.PMC 14:52
PROVIDERS: Visit Provider Nurse Practitioner Family
DX: M51.369 Other intervertebral disc degeneration, lumbar region without mention of lumbar back pain or lower extremity pain (principal); M62.838 Other muscle spasm; M54.16 Radiculopathy, lumbar region; M47.816 Spondylosis without myelopathy or radiculopathy, lumbar region; M79.7 Fibromyalgia
CPT/HCPCS: 99204

== ENCOUNTER → 2025-07-06 14:51 | Outpatient (BNVA) | payer OTHER, SELFPAY | PROVIDERS: Visit Provider Nurse Practitioner Family | DX: M54.16 Radiculopathy, lumbar region (principal); M51.360 Other intervertebral disc degeneration, lumbar region with discogenic back pain only; M62.838 Other muscle spasm; M47.816 Spondylosis without myelopathy or radiculopathy, lumbar region; M79.7 Fibromyalgia | CPT/HCPCS: 99202 ==

== ENCOUNTER 2025-07-20 09:07 | Outpatient (AMB) | payer OTHER, SELFPAY ==
--- OUTSIDE RECORDS SUMMARY | 2025-07-14 22:59 | XMS_ITS | Continuity of Care Document ---
Author Organization [facility] Address [address] [place] [id number] Care Team Providers Care Information Systems Project Manager Name Role Phone Lloyd SWAIN, Alireza Kemp Primary Care Physician Encounter [facility] Date(s): 06/14/25 - 07/14/25 [facility] [address] [place] [id number] Attending Physician: Admtr, Ar8 Admitting Physician: Admtr, Ar8 Referring Physician: Admtr, Ar8 Encounter Type: Triage Allergies, Adverse Reactions, Alerts Substance Criticality Severity Reaction Reaction Severity Status penicillin Active cetirizine Active Latex Hives Active Nuts 1 Hives Active lamoTRIgine Active levoFLOXacin Active 1ONLY WALNUTS ALLERGY TO [place] = hives Medications Carafate 1 gm oral tablet 1 Gm, 1, tablet, By Mouth, 4 times a day, # 120 tablet, Refills 0, Tot. Refills 0, Maintenance, 12/03/22 4:00:00 PM EDT, Route to Pharmacy Electronically, [facility]/pharmacy #[id number], Partial fill upon patientrequest if the prescription is for a schedule II opioid drug., 152.4, cm, 11/04/22 11:19:00 EST, Height Start Date: 12/03/22 Status: Ordered Medication Dispense Status: Completed Quantity: 120.0 Unit: tablet Total Allowed Fills: 1 Fills Dispensed: 0 dicyclomine 10 mg oral capsule 2 capsule = 20 mg, By Mouth, 4 times a day, 0 Refills, Maintenance, 02/16/17 1:39:48 PM EDT Start Date: 02/16/17 Status: Ordered Medication Dispense Status: Completed Total Allowed Fills: 1 Fills Dispensed: 0 Nexium 40 mg oral enteric coated capsule 1 capsule = 40 mg, By Mouth, Daily, # 90 capsule, 2 Refills, Maintenance, 01/06/23 9:28:00 AM EDT, EC Capsule, [id number], Partial fill upon patient request if the prescription is for a schedule II opioid drug., 152.4, cm, 11/04/22 11:19:00 EST, Height Start Date: 01/06/23 Status: Ordered Medication Dispense Status: Completed Quantity: 90.0 Unit: capsule Total Allowed Fills: 3 Fills Dispensed: 0 omeprazole 20 mg oral enteric coated capsule 1 capsule = 20 mg, By Mouth, 2 times a day, # 20 capsule, 0 Refills, Maintenance, 02/05/23 9:45:00 AM EDT, EC Capsule, [id number], Partial fill upon patient request if the prescription is for a schedule II opioid drug., 152.4, cm, 11/04/22 11:19:00 EST, Height Start Date: 02/05/23 Stop Date: 02/15/23 Status: Ordered Medication Dispense Status: Completed Quantity: 20.0 Unit: capsule Total Allowed Fills: 1 Fills Dispensed: 0 ondansetron 8 mg oral tablet 1 tablet = 8 mg, By Mouth, 3 times a day, 0 Refills, Maintenance, 02/16/17 1:39:37 PM EDT Start Date: 02/16/17 Status: Ordered Medication Dispense Status: Completed Total Allowed Fills: 1 Fills Dispensed: 0 [id number] with Electrolytes (Eqv-NuLYTELY) oral powder for reconstitution See Instructions, as directed, # 1 each, 0 Refills, Maintenance, 11/04/22 12:15:00 PM EST, [id number], ok to sub for any gallon prep, as directed, 152.4, cm, 11/04/22 11:19:00 EST, Height Start Date: 11/04/22 Status: Ordered Medication Dispense Status: Completed Quantity: 1.0 Unit: each Total Allowed Fills: 1 Fills Dispensed: 0 prochlorperazine 10 mg oral tablet 1 tablet = 10 mg, By Mouth, 3 times a day, 0 Refills, Maintenance, 02/16/17 1:40:45 PM EDT Start Date: 02/16/17 Status: Ordered Medication Dispense Status: Completed Total Allowed Fills: 1 Fills Dispensed: 0 SEROquel 100 mg oral tablet 100 mg, 1, tablet, By Mouth, 2 times a day, Refills 0, Maintenance, 02/16/17 1:40:01 PM EDT Start Date: 02/16/17 Status: Ordered Medication Dispense Status: Completed Total Allowed Fills: 1 Fills Dispensed: 0 topiramate 25 mg oral tablet 1 tablet = 25 mg, By Mouth, 2 times a day, 0 Refills, Maintenance, 02/16/17 1:40:15 PM EDT Start Date: 02/16/17 Status: Ordered Medication Dispense Status: Completed Total Allowed Fills: 1 Fills Dispensed: 0 Problem List Condition Confirmation Course Effective Dates Status H ealth Status Informant Acute bilateral low back pain with bilateral sciatica Confirmed Active Acid reflux Confirmed Active Obese class I Confirmed Active Polymenorrhea Confirmed Active Frequent falls Confirmed Active Social History Social History Type Response Smoking Status Never (less than 100 in lifetime) entered on: 04/04/25 Sex Sex Representation Female (finding) Patient Care team information Care Team Personnel Name: Lloyd SWAIN, Alireza Kemp Position: [facility] Outreach Member Role: PCP Address: [address] [place] [id number] Telecom: Care Team Related Persons Name: NO ONE, PATIENT STATES Name: CHARLES LOBATO Insurance Providers Guarantor name: DIANN Health Plan Information #: 1 Payer: [facility] Payer Identifier: DIANN Member Number: [id number] Group Number: [id number] Subscriber Identifier: DIANN Relationship to Subscriber: self Coverage Type: Medicare Managed Care (Includes Medicare Advantage Plans) Coverage Verification Date: DIANN Telecom: DIANN Address:
--- NOTE | 2025-07-20 09:09 | MHC.OFFVIS ---
Vital Signs 07/20/25 09:16 Height 5 ft Weight 165 lb BMI 32.2 Intake Visit Reasons: OV- RLE pain and worsening weakness Intake Note: Noreen is 45 year old female who presents today as a new patient for right lower extremity pain with weakness. Patient was referred by 06/16/25. Patient had a Lumbar Spine MRI 06/05/25. At today's visit she states that since March of this year she has had right hip pain that radiates into her pelvis and down the leg. She states that about two weeks ago is when she noticed that her left hip is now having radiating pain. She reports that she has not tried physical therapy, at home exercises or injections to help relieve the pain. She added that she uses heat and takes NSAIDS to help with the pain but no relief. She noted that her bilateral leg pain is constant numbness,tingling and sharp pain. Allergies Penicillins (PENICILLINS) Allergy (Intermediate, Verified 07/06/25 14:57) HIVES levofloxacin (From LEVAQUIN) Allergy (Mild, Verified 07/06/25 14:57) hives cetirizine (Zyrtec) Allergy (Unknown, Verified 07/06/25 14:57) palpitations lamotrigine (LAMOTRIGINE) Allergy (Unknown, Verified 07/06/25 14:57) blurry vision latex (LATEX) Allergy (Unknown, Verified 07/06/25 14:57) HIVES pineapple Allergy (Verified 07/06/25 14:57) Unknown HPI Comments Details: Patient was seen by [facility] for hamstring injury, sustained 03/31/2025. Referred to physiatry because of lower back pain. Recently diagnosed with right DVT, on Eliquis. Last lumbar MRI 06/05/2025, independently reviewed by me, showed a right-sided L5-S1 disc herniation very close to the right S1 nerve root. History of fibromyalgia. Already following with pain management, last visit 07/06/2025: ? The plan includes initiating physical therapy for the back pain, prior to considering right L5-S1 TFESI injections, pending approval to hold Eliquis for three days from prescribing provider. ? This back pain is chronic but says pain worsened in March with leg swelling. Has tried gabapentin, but gives her gastric side effects. Has tried flexeril which did help for the back pain, previously prescribed by PCP. Already neurosurgeon at [facility] last week, also waiting word for Eliquis if cannot be held. [facility] Medical History (Updated 07/20/25 @ 09:35 by Riya Thomas MD) Fibrocystic changes of left breast PTSD (post-traumatic stress disorder) IBS (irritable bowel syndrome) Constipation Bipolar 1 disorder MCI (mild cognitive impairment) Kidney stone Cervical disc disease Tension headache Migraine with aura Dizziness Disc degeneration, lumbar Spondylosis of lumbar region without myelopathy or radiculopathy Arthropathy of cervical facet joint Surgical History History of esophagogastroduodenoscopy (EGD) Hx of prior ablation treatment History of section History of bilateral tubal ligation Family History Father No problems noted. Mother No problems noted. Brother No problems noted. Brother No problems noted. Brother No problems noted. Brother No problems noted. Brother No problems noted. Brother No problems noted. Sister No problems noted. Sister No problems noted. Sister No problems noted. Son No problems noted. Son No problems noted. Son No problems noted. Daughter No problems noted. Daughter No problems noted. Social History Household Members Other:: 5 kids, single Alcohol intake: never Patient Tobacco Use Status: Never used Tobacco e-Cigarette/Vaping Use: Never Used Current occupational status: unemployed and disabled Review of Systems Const All systems reviewed & are unremarkable except as noted in HPI and below Physical Exam Exam Exam: Very uncomfortable. Unable to stay in 1 position for very long time. Right-sided leg pain. Antalgic to the right side. Vital Signs: BMI result Body Mass Index 32.2 Results Reviewed Results Reviewed: I independently reviewed the results of the following: Lumbar MRI as described above. Ordering Physician: SHREYA PAULINO MD Date of Service: 06/03/25 Procedure(s): MR lumbar spine wo con Accession Number(s): [id number] cc: SHREYA PAULINO MD; Physician,Unknown ~ Reason for Exam: RIGHT SIDED LBP WITH RIGHT SIDE SCIATICA CLINICAL HISTORY: RIGHT SIDED LBP WITH RIGHT SIDE SCIATICA MR lumbar spine without gadolinium Comparison: None Findings: No scoliosis or spondylolisthesis. No acute fracture or pathologic bone lesion. Cauda equina and conus medullaris within normal limits. The retroperitoneal and paraspinal soft tissues are unremarkable. Individual levels: T11-T12: Small posterior disc protrusion with no significant central canal stenosis or neural foraminal narrowing. T12-L4: Unremarkable. L4-L5: Moderate broad-based disc protrusion mild bilateral neural foraminal narrowing. No central canal stenosis. Tiny disc fissure noted. L5-S1: Moderate posterior and right eccentric disc protrusion. Moderate bilateral neural foraminal narrowing as well as mass effect upon the right-sided descending S1 nerve root. Impression: Degenerative changes most pronounced at L5-S1. This document has been electronically signed by: Saman Dalton MD on 06/05/2025 10:54:39 Ordering Physician: Mekhi Iglesias Date of Service: 06/05/25 Procedure(s): CT pelvis wo IV con Accession Number(s): [id number] cc: Mekhi Iglesias; Physician,Unknown ~ Report Number: [id number]: Total DLP = 375.00 mGy-cm Reason for Exam: trauma CLINICAL HISTORY: trauma CT pelvis without contrast Comparison: CT/SR - CT PELVIS WITHOUT IV CONTRAST - 05/19/2025 04:25 PM EDT Findings: Pelvic contents unremarkable. No acute fracture. Sacrum and coccyx appear within normal limits. Mild degenerative changes of the bilateral hips. IMPRESSION: No acute fracture. This document has been electronically signed by: Tomeka Rocha MD on 06/05/2025 20:20:52 I reviewed records from the following: Ortho, pain management Assessment & Plan Assessment & Plan (1) Herniation of lumbar intervertebral disc: Code(s): M51.26 - Other intervertebral disc displacement, lumbar region Category: Medical Plan Right-sided lumbar disc herniation, very close to right S1 nerve root, as seen on MRI and consistent with her symptoms. Unfortunately she is on Eliquis for a newly diagnosed DVT. She has already seen pain management and neurosurgery, both waiting to hear if patient can discontinue Eliquis for a few days so that she can get an epidural injection. She is seeing a specialist next week supposedly. I agreed to increasing her cyclobenzaprine 10 mg b.i.d. PRN. Both patient and her partner verbalized understanding of side effects and complications, to watch out for over-sedation and that she could be a fall risk. Discussed complications of being on Eliquis. Prescription is for 1 month, further refills to be discuss with her PCP. Also reiterated the importance of being active and starting physical therapy. She has been referred by pain management to PT but has not yet heard a call from them. Phone number of PT given to the patient and encouraged them to call today. Assessment and plan discussed with patient, and patient was agreeable. All questions were answered thoroughly. Riya Thomas MD, CHANTEL Board Certified, [place] [employer] and Rehabilitation (ABPMR) Board Certified, [place] [employer] of Electrodiagnostic Medicine (ABEM) Medications: New cyclobenzaprine 10 mg PO BID PRN 30 tabs 0RF muscle spasm Coding Level of Care Code New Pt Level 4 (88855) Diagnoses Herniation of lumbar intervertebral disc M51.26
[2025-07-20 09:16] VITALS: BMI 32.2
--- OUTSIDE RECORDS SUMMARY | 2025-07-20 09:57 | XMS_ITS | Clinical Summary ---
Author Organization [employer] Address [address] [place] [address] 7t [place] [address] Care Team Providers Care Bottom Painter Name Role Phone Alireza Desai NP Primary Care Provider [phone] Allergies Active Allergy Reactions Criticality Noted Date Comments Lamotrigine 10/07/2022 Other reaction(s): Hyper-aggressive Latex 01/06/2020 Other reaction(s): Hives Levofloxacin Unknown 10/07/2022 Penicillamine Rash Low 10/07/2022 Penicillins 01/06/2020 Other reaction(s): Skin irritation Black Kennett Flavoring Agent (Non-Screening) Hives 10/07/2022 ONLY [place] [...] Type Department Care Team Description 07/05/2025 Telephone [place] [facility] [address] [place] [address] Alireza Desai NP Refill pain meds 06/13/2025 Telephone [facility] [address] [place] [address] Alireza Desai NP PFLMA PPW 06/09/2025 12:00 PM EDT Office Visit [place] [facility] [address] [place] [address] Hannah Cruz FNP Degeneration of intervertebral disc of lumbar region with discogenic back pain and lower extremity pain (Primary Dx); Nausea; Acute deep vein thrombosis (DVT) of other specified vein of right lower extremity (CMS/HCC) 06/09/2025 Results Follow-Up [address] [address] Hannah Cruz FNP MR Lumbar Spine w/o Contrast 06/08/2025 Results Follow-Up [address] [address] Alireza Desai NP CBC auto differential 06/08/2025 Orders Only [facility] Information Management [address] [place] [address] Alireza Desai NP 06/07/[address] [address] Alireza Desai NP Need ED notes from [facility] 06/07/2025 Orders Only [facility] [address] [place] [address] Alireza Desai NP 06/06/[address] [address] Alireza Desai NP hospital discharge, obtain hospital records 06/01/2025 12:30 PM EDT Office Visit [address] [address] Alireza Desai NP Acute deep vein thrombosis (DVT) of other specified vein of right lower extremity (CMS/HCC) (Primary Dx); Chronic right-sided low back pain with right-sided sciatica; Pain of right thigh; Hyperlipidemia, unspecified hyperlipidemia type 05/30/2025 Travel 05/24/2025 10:00 AM EDT Office Visit [address] [address] Hannah Cruz FNP Acute deep vein thrombosis (DVT) of other specified vein of right lower extremity (CMS/HCC) (Primary Dx); Chronic right-sided low back pain with right-sided sciatica; Hypertension, unspecified type 05/24/2025 Telephone [facility] [address] [place] [address] Susana Harrell LPN pain in leg, hip, and back 05/23/2025 Telephone [facility] Information Management [address] [place] [address] Alireza Desai NP 05/21/2025 Orders Only [facility] [address] [place] [address] Alireza Desai NP 05/16/2025 9:30 AM EDT Office Visit [facility] [address] [place] [address] Shelly Styles MD Right-sided low back pain with right-sided sciatica, unspecified chronicity (Primary Dx); Hyperlipidemia, unspecified hyperlipidemia type; Hypertension, unspecified type 05/03/2025 Telephone [facility] [address] [place] [address] Alireza Desai NP ED Visit 05/03/2025 Orders Only [facility] [address] [place] [address] ProviderBecky MD 04/21/2025 Telephone [facility] MED[facility] [address] [place] [address] Alireza Desai NP hospital discharge, obtain hospital [...] Description 07/25/2025 9:30 AM EST Office Visit [facility] [address] [place] [address] Rita Ramon, OD [address] [place] [address] 07/31/2025 2:00 PM EST Office Visit [place] [facility] [address] [place] [address] Alireza Desai, BRYNN [address] [place] [address] Health Maintenance Due Date Last Done Comments [...] Date/Time Associated Diagnosis Comments AMB REFERRAL TO NEUROSURGERY Urgent 07/17/2025 Right-sided low back pain with right-sided sciatica, unspecified chronicity AMB REFERRAL TO PAIN MEDICINE Routine 07/06/2025 Degeneration of intervertebral disc of lumbar region with discogenic back pain and lower extremity pain BASIC METABOLIC PANEL Routine 06/06/2025 9:22 AM [...] to Health Maintenance Results * Referral to Neurosurgery (07/17/2025) Shelly Styles MD OUTPATIENT REFERRAL ORDERABLES F inal Result * Referral to Pain Medicine (07/06/2025) Hannah [facility] OUTPATIENT REFERRAL ORDER KYLE Final Result * Basic Metabolic Panel (06/06/2025 9:22 AM [...] Region Laterality Modality Radiographic Tita ging Becky Givens MD IMG XR PROCEDURES Final R esult [...] AM EDT Performed at: 01 - [facility] [address] [id number] Batch Analyst: Nanda Alarcon MD, Phone: [phone] Alireza Desai NP LAB BLOOD ORDERABLES Final R esult [facility] 1 * Hm Colonoscopy (01/06/2023) Historical Provider HEALTH MAINTENANCE Final Result * Hm Mammography (12/16/2022) Anatomical Region Laterality Modality Other Historical Provider HEALTH MAINTENANCE Final Result from Last 3 Months or Most Recently Relevant to Health Maintenance Insurance [facility] ONE CARE < 65 [facility] < 65 Care Teams Bottom Painter Relationship Specialty Start Date End Date Alireza Desai NP [address] [place] [address] PCP - General Internal Medicine 11/07/22
--- OUTSIDE RECORDS SUMMARY | 2025-07-20 09:57 | XMS_ITS | Encounter Summary ---
Author Organization [employer] [facility] Address [address] [facility] [facility] [address] [address] 7t [place] [address] Care Team Providers Care Staff Development Nurse Name Role Phone Alireza Desai NP Primary Care Provider [phone] Encounter Details Date Type Department Care Team (Late st Contact Info) Description 07/27/2023 Orders Only [facility] MED[facility] [address] [place], [place] [id number] Provider, MD Becky Social History Tobacco Use [...] Description 07/25/2025 9:30 AM EST Office Visit [facility] OPTOMETRY [address] [place] [address] Ramon Salinas, OD [address] [place] [address] 07/31/2025 2:00 PM EST Office Visit [facility] MED[facility] 70 [place] [address] Alireza Desai NP 70 [place] [address] documented as of this encounter Procedures Procedure Name Priority Date/Time Associated Diagnosis Comments HM MAMMOGRAPHY Routine 12/13/2022 documented in this encounter Results * Hm Mammography (12/13/2022) Anatomical Region Laterality Modality Other us Historical Provider HEALTH MAINTENANCE Final Result documented in this encounter Visit Diagnoses Not on filedocumented in this encounter Care Teams Staff Development Nurse Relationship Specialty Start Date End Date Alireza Desai NP 70 [place] [address] PCP - General Internal Medicine 11/07/22 documented as of this encounter
--- OUTSIDE RECORDS SUMMARY | 2025-07-20 09:57 | XMS_ITS | Encounter Summary ---
Author Organization [employer] Address [address] [facility] 7t [place] [address] Care Team Providers Care Sand Screener Name Role Phone Alireza Desai NP Primary Care Provider [phone] Reason for Visit * Reason Onset Date Comments Need ED notes from [facility] 06/07/2025 Encounter Details Date Type Department Care Team (Late st Contact Info) Description 06/07/2025 Telephone [place] [facility] [address] [place] [address] Alireza Desai NP 70 [place] [address] Need ED notes from [facility] Social History Tobacco Use Types Packs/Day [...] - 06/07/2025 3:48 PM EDT Notes from [facility] ED indicate that patient was seen in [facility] ED on 06/05/25 and had multiple arterial and venous imaging studies of her LE, as well as imaging of her low back. Please try to get all those records as soon as possible. thanks documented in this encounter Plan of Treatment Upcoming Encounters Date Type Department Care Team (Late st Contact Info) Description 07/25/2025 9:30 AM EST Office Visit [place] [facility] OPTOMETRY [address] [place] [address] Ramon Salinas OD [address] [place] [address] 07/31/2025 2:00 PM EST Office Visit [facility] MEDICAL [address] [place] [address] Alireza Desai NP [address] [place] [address] documented as of this encounter Visit Diagnoses Not on filedocumented in this encounter Care Teams Sand Screener Relationship Specialty Start Date End Date Alireza Desai NP [address] [place] [address] PCP - General Internal Medicine 11/07/22 documented as of this encounter
--- OUTSIDE RECORDS SUMMARY | 2025-07-20 09:57 | XMS_ITS | Encounter Summary ---
Author Organization [employer] Address [address] [facility] [facility] [address] 7t [place] [address] Care Team Providers Care Nursing Education Specialist Name Role Phone Alireza Desai NP Primary Care Provider Encounter Details Date Type Department Care Team (Late st Contact Info) Description 06/08/2025 Orders Only [facility] [address] [place] [address] Alireza Desai NP 70 [place] [address] Social History Tobacco Use Types Packs/Day Years [...] 9:30 AM EST Office Visit [facility] OPTOMETRY [address] [place] [address] Ramon Salinas, OD [address] [place] [address] 07/31/2025 2:00 PM EST Office Visit [facility] MEDICAL [address] [place] [address] Alireza Desai NP 70 [place] [address] documented as of this encounter Procedures Procedure [...] Modality Computed Tomogra phy us Alireza Desai WELFARE DIRECTOR IMG CT PROCEDURES Final Resu lt * [...] on filedocumented in this encounter Care Teams Nursing Education Specialist Relationship Specialty Start Date End Date Alireza Desai NP 70 [place] [address] PCP - General Internal Medicine 11/07/22 documented as of this encounter
--- OUTSIDE RECORDS SUMMARY | 2025-07-20 09:57 | XMS_ITS | Encounter Summary ---
Author Organization [employer] Address [address] [facility] [address] [place] [address] Care Team Providers Care Security System Installer Name Role Phone Alireza Desai NP Primary Care Provider Encounter Details Date Type Department Care Team (Late st Contact Info) Description 05/21/2025 Orders Only [facility] [address] [place] [address] Alireza Desai NP [address] [place] [address] Social History Tobacco Use Types Packs/Day Years [...] Description 07/25/2025 9:30 AM EST Office Visit [facility] OPTOMETRY 73 [place] [address] Ramon Salinas, OD [address] [place], [place] [phone] 07/31/2025 2:00 PM EST Office Visit [facility] MEDICAL 70 [place] [address] Alireza Desai NP 70 [place] [address] documented as of this encounter Procedures Procedure Name Priority Date/Time Associated Diagnosis Comments US LOWER EXTREMITY VENOUS RIGHT Routine 05/19/2025 10:55 AM EDT documented in this encounter Results * VASC US Lower Extremity Venous Right (05/19/2025 10:55 AM EDT) Alireza Desai NP CV VASCULAR PROCEDURES Final Result documented in this encounter Visit Diagnoses Not on filedocumented in this encounter Care Teams Security System Installer Relationship Specialty Start Date End Date Alireza Desai NP [address] [place] [address] PCP - General Internal Medicine 11/07/22 documented as of this encounter
--- OUTSIDE RECORDS SUMMARY | 2025-07-20 09:57 | XMS_ITS | Encounter Summary ---
Author Organization [employer] Address [address] [facility] [facility] [address] [facility] [address] 7t [place] [address] Care Team Providers Care Clearing Hand Name Role Phone Alireza Desai NP Primary Care Provider Encounter Details Date Type Department Care Team (Late st Contact Info) Description 06/07/2025 Orders Only [facility] [address] [place] [address] Alireza Desai NP 70 [place] [address] Social History Tobacco Use Types Packs/Day Years [...] Description 07/25/2025 9:30 AM EST Office Visit [facility] OPTOMETRY 73 [place] [address] Ramon Salinas, OD 73 [place], [place] [address] 07/31/2025 2:00 PM EST Office Visit [facility] MEDICAL [address] [place] [address] Alireza Desai NP 70 [place] [address] documented as of this encounter Procedures Procedure Name Priority Date/Time Associated Diagnosis Comments BASIC METABOLIC PANEL Routine 06/06/2025 9:22 AM EDT documented in this encounter Results * Basic Metabolic Panel (06/06/2025 9:22 AM EDT) Blood Venous blood specimen / Unknown Alireza Desai NP LAB BLOOD ORDERABLES Final R esult documented in this encounter Visit Diagnoses Not on filedocumented in this encounter Care Teams Clearing Hand Relationship Specialty Start Date End Date Alireza Desai NP 70 [place] [address] PCP - General Internal Medicine 11/07/22 documented as of this encounter
--- OUTSIDE RECORDS SUMMARY | 2025-07-20 09:57 | XMS_ITS | Encounter Summary ---
Author Organization [employer] [facility] Address [address] [facility] 7t [place] [address] Care Team Providers Care Process Safety Management Engineer Name Role Phone Alireza Desai NP Primary Care Provider Encounter Details Date Type Department Care Team (Late st Contact Info) Description 12/16/2022 Orders Only [facility] MEDICAL [address] [place] [address] Provider, MD Becky Social History Tobacco Use [...] Description 07/25/2025 9:30 AM EST Office Visit [facility] OPTOMETRY 73 [place] [address] Ramon Salinas OD 73 [place] [address] 07/31/2025 2:00 PM EST Office Visit [facility] MEDICAL 70 [place] [address] Alireza Desai NP 70 [place] [address] documented as of this encounter Procedures Procedure Name Priority Date/Time Associated Diagnosis Comments MAMMOGRAPHY Routine 12/16/2022 documented in this encounter Results * Mammography (12/16/2022) Anatomical Region Laterality Modality Other us Historical Provider HEALTH MAINTENANCE Final Result documented in this encounter Visit Diagnoses Not on filedocumented in this encounter Care Teams Process Safety Management Engineer Relationship Specialty Start Date End Date Alireza Desai NP 70 [place] [address] PCP - General Internal Medicine 11/07/22 documented as of this encounter
--- OUTSIDE RECORDS SUMMARY | 2025-07-20 09:57 | XMS_ITS | Encounter Summary ---
Author Organization [employer] Address [address] [facility] 7t [place] [address] Care Team Providers Care Commercial Crabber Name Role Phone Alireza Desai NP Primary Care Provider [phone] Encounter Details Date Type Department Care Team (Late st Contact Info) Description 06/08/2025 Results Follow-Up [place] [facility] MED[facility] 70 [place] [address] Alireza Desai NP 70 [place] [address] CBC auto differential Social History Tobacco Use [...] Description 07/25/2025 9:30 AM EST Office Visit [facility] OPTOMETRY 73 [place], [place] [phone] Ramon Salinas, OD [address] [place] [address] 07/31/2025 2:00 PM EST Office Visit [facility] MEDICAL 70 [place] [address] Alireza Desai NP 70 [place] [address] documented as of this encounter Visit Diagnoses Not on filedocumented in this encounter Care Teams Commercial Crabber Relationship Specialty Start Date End Date Alireza Desai NP [address] [place] [address] PCP - General Internal Medicine 11/07/22 documented as of this encounter
--- OUTSIDE RECORDS SUMMARY | 2025-07-20 09:57 | XMS_ITS | Encounter Summary ---
Author Organization [employer] [facility] Address [address] [place] [address] 7 [place] [address] Care Team Providers Care Street Sprinkler Name Role Phone Alireza Desai NP Primary [...] Description 07/25/2025 9:30 AM EST Office Visit [facility] OPTOMETRY 73 [place] [address] Ramon Salinas OD [address] [place] [address] 07/31/2025 2:00 PM EST Office Visit [facility] MEDICAL 70 [place] [address] Alireza Desai NP 70 [place] [address] documented as of this encounter Visit Diagnoses Not on filedocumented in this encounter Care Teams Street Sprinkler Relationship Specialty Start Date End Date Alireza Desai NP 70 [place] [address] PCP - General Internal Medicine 11/07/22 documented as of this encounter
--- OUTSIDE RECORDS SUMMARY | 2025-07-20 09:57 | XMS_ITS | Encounter Summary ---
Author Organization [employer] Address [address] [facility] [address] [facility] [address] 7t [place] [address] Care Team Providers Care Ammonium Nitrate Neutralizer Name Role Phone Alireza Desai NP Primary Care Provider [phone] Encounter Details Date Type Department Care Team (Late st Contact Info) Description 07/21/2023 Orders Only [facility] MEDICAL [address] [place] [address] Provider, MD Becky Social History Tobacco Use [...] Description 07/25/2025 9:30 AM EST Office Visit [facility] OPTOMETRY [address] [place] [address] Ramon Salinas, OD 73 [place] [address] 07/31/2025 2:00 PM EST Office Visit [facility] MEDICAL 70 [place] [address] Alireza Desai NP 70 [place] [address] documented as of this encounter Procedures Procedure Name Priority Date/Time Associated Diagnosis Comments HM COLONOSCOPY Routine 01/06/2023 documented in this encounter Results * Hm Colonoscopy (01/06/2023) Historical Provider HEALTH MAINTENANCE Final Result documented in this encounter Visit Diagnoses Not on filedocumented in this encounter Care Teams Ammonium Nitrate Neutralizer Relationship Specialty Start Date End Date Alireza Desai NP 70 [place] [address] PCP - General Internal Medicine 11/07/22 documented as of this encounter
--- OUTSIDE RECORDS SUMMARY | 2025-07-20 09:57 | XMS_ITS | Encounter Summary ---
Author Organization [employer] Address [address] 7t [place] [address] Care Team Providers Care Time Recorder Name Role Phone Alireza Desai NP Primary Care Provider [phone] Encounter Details Date Type Department Care Team (Late st Contact Info) Description 05/03/[address] [facility] MEDICAL [address] [place] [address] Provider, MD Becky Social History Tobacco Use [...] Description 07/25/2025 9:30 AM EST Office Visit [facility] OPTOMETRY 73 [place] [address] Ramon Salinas, OD 73 [place] [address] 07/31/2025 2:00 PM EST Office Visit [facility] MEDICAL 70 [place] [address] Alireza Desai NP 70 [place] [address] documented as of this encounter Procedures Procedure [...] on filedocumented in this encounter Care Teams Time Recorder Relationship Specialty Start Date End Date Alireza Desai NP 70 [place] [address] PCP - General Internal Medicine 11/07/22 documented as of this encounter
--- OUTSIDE RECORDS SUMMARY | 2025-07-20 09:57 | XMS_ITS | Encounter Summary ---
Author Organization [employer] Address [address] 7t [place] [address] Care Team Providers Care Circulation Assistant Name Role Phone Alireza Desai NP Primary Care Provider Encounter Details Date Type Department Care Team (Late st Contact Info) Description 05/23/2025 Telephone [place] [facility] [address] [place] [address] Alireza Desai NP 70 [place] [address] Social History Tobacco Use Types Packs/Day Years [...] EST Office Visit [facility] OPTOMETRY [address] [place] [address] Ramon Salinas, OD [address] [place] [address] 07/31/2025 2:00 PM EST Office Visit [facility] MEDICAL 70 [place] [address] Alireza Desai NP 70 [place] [address] documented as of this encounter Visit Diagnoses Not on filedocumented in this encounter Care Teams Circulation Assistant Relationship Specialty Start Date End Date Alireza Desai NP 70 [place] [address] PCP - General Internal Medicine 11/07/22 documented as of this encounter
== END 2025-07-20 09:34 | disposition home or self-care (01) ==
LOC: HO.HOS 09:08
PROVIDERS: Visit Provider Physical Medicine & Rehabilitation
DX: M51.26 Other intervertebral disc displacement, lumbar region (principal)
CPT/HCPCS: 99204

== ENCOUNTER → 2025-07-20 09:07 | Outpatient (BNVA) | payer OTHER, SELFPAY | PROVIDERS: Visit Provider Physical Medicine & Rehabilitation | DX: M79.661 Pain in right lower leg (principal); M25.551 Pain in right hip; M51.26 Other intervertebral disc displacement, lumbar region; R53.1 Weakness; G89.29 Other chronic pain | CPT/HCPCS: 99202 ==

== ENCOUNTER 2025-07-22 18:31 | Emergency (ER) | payer OTHER, SELFPAY ==
--- NOTE | ~2025-07-22 | XR_ITS ---
CLINICAL HISTORY: right hip pain 3 view, pelvis and right hip Comparison: CT/REG/SR - CT PELVIS WO IV CON - 06/05/25 19:25 EDT Findings: The bones are intact. Mild degenerative changes of the hips. The soft tissues are unremarkable. IMPRESSION: No acute findings. This document has been electronically signed by: Keyshawn Huerta MD on 07/22/2025 19:32:26
[2025-07-22 18:41] VITALS: BP 161/68; PULSE 113; RESP 18; TEMP 36.4; O2SAT 98; BMI 32.2
--- NOTE | 2025-07-22 18:41 | ED_ITS ---
HPI - General Adult General Chief complaint: Extremity Problem Stated complaint: pain on the side of the right leg Time Seen by Provider: 07/22/25 21:47 Source: patient Mode of arrival: ambulatory Limitations: no limitations History of Present Illness ED Provider: DR. Cristina HPI narrative: 45-year-old female with history of fibromyalgia, DVT on Eliquis, chronic back pain for the past 3 months, came in for evaluation of back pain radiating to right hip area down to the back of the right thigh for the past 3-4 days, there is no numbness, no weakness, no urinary incontinence, No fever, no chills, no recent trauma or fall,no history of IV drug use, patient is scheduled to see neurosurgeon to assess for her chronic back pain. Had lower back MRI on 06/05/2025 which showed mild disc protrusion L4 -L5 and L5 -S1. No dysuria, no frequency urination, no hematuria. No flank pains. Related Data Home Medications ?Medication ?Instructions ?Recorded ?Confirmed oxycodone-acetaminophen 5 mg-325 tab PO 06/16/25 mg tablet apixaban 5 mg tablet (Eliquis) 5 mg PO BID 07/06/25 Previous Rx's ?Medication ?Instructions ?Recorded propranolol 60 mg capsule,24 60 mg PO DAILY 90 days #9 0 caps 03/30/25 hr,extended release lidocaine 4 % topical patch 1 patch topical DAILY PRN pain #10 05/19/25 ea ondansetron 4 mg disintegrating 4 mg PO DAILY PRN naus ea and 07/03/25 tablet vomiting 30 days #10 tabs cyclobenzaprine 10 mg tablet 10 mg PO BID PRN muscle s pasm #30 07/20/25 tabs cyclobenzaprine 10 mg tablet 10 mg PO TID PRN muscle s pasm #10 07/22/25 tabs oxycodone 5 mg tablet 5 mg PO Q8H PRN pain #7 tabs 07/22/25 Allergies Allergy/AdvReac Type Severity Reaction Status Date / Time Penicillins (PENICILLINS) Allergy Intermediate HIVES Verified 07/22/25 18:43 levofloxacin (From LEVAQUIN) Allergy Mild hives Verified 07/22/25 18:43 cetirizine (Zyrtec) Allergy Unknown palpitation Verified 07/22/25 18:43 s lamotrigine (LAMOTRIGINE) Allergy Unknown blurry Verified 07/22/25 18:43 vision latex (LATEX) Allergy Unknown HIVES Verified 07/22/25 18:43 pineapple Allergy Unknown Verified 07/22/25 18:43 Review of Systems 2 Review of Systems: all other systems are reviewed and are negative Constitutional: Reports as per HPI and Reports no additional constitutional complaints Eyes: Reports as per HPI and Reports no additional eye complaints Reports system reviewed and no additional complaints, except as documented Cardiovascular: Reports as per HPI and Reports no additional cardiovascular complaints Respiratory: Reports as per HPI and Reports no additional respiratory complaints Gastrointestinal: Reports as per HPI and Reports no additional gastrointestinal complaints Genitourinary: Reports no additional female genitourinary complaints Musculoskeletal: Reports no additional musculoskeletal complaints Skin/Breast: Reports system reviewed and no additional complaints, except as docu Psychiatric: Reports no additional psychiatric complaints Endocrine: Reports no additional endocrine complaints Hematologic/Lymphatic: Reports no additional hematologic/lymphatic complaints Allergic/Immunologic: Reports no additional allergic/immunologic complaints Reports system reviewed and no additional complaints, except as documented and Reports Abnormal speech present [facility] Past Medical History Medical History Fibrocystic changes of left breast PTSD (post-traumatic stress disorder) IBS (irritable bowel syndrome) Constipation Bipolar 1 disorder MCI (mild cognitive impairment) Kidney stone Cervical disc disease Tension headache Migraine with aura Dizziness Disc degeneration, lumbar Spondylosis of lumbar region without myelopathy or radiculopathy Arthropathy of cervical facet joint Surgical History History of esophagogastroduodenoscopy (EGD) Hx of prior ablation treatment History of section History of bilateral tubal ligation Family History Family History Father No problems noted. Mother No problems noted. Brother No problems noted. Brother No problems noted. Brother No problems noted. Brother No problems noted. Brother No problems noted. Brother No problems noted. Sister No problems noted. Sister No problems noted. Sister No problems noted. Son No problems noted. Son No problems noted. Son No problems noted. Daughter No problems noted. Daughter No problems noted. Social History Social History Household Members Other:: 5 kids, single Alcohol intake: never Patient Tobacco Use Status: Never used Tobacco e-Cigarette/Vaping Use: Never Used Advance Directives: No Advance Directives Information Provided: Yes Current occupational status: unemployed and disabled Physical Exam ED Vital Signs: Vital Signs - 24 hr 07/22/25 18:41 07/22/25 20:41 07/22/25 23:38 Temperature 97.6 F 97.7 F 98.0 F Pulse Rate 113 H 97 86 Respiratory Rate 18 18 20 Blood Pressure 161/68 H 128/68 165/84 H Pulse Oximetry 98 99 97 Oxygen Delivery Method Room Air Room Air Room Air BMI result Body Mass Index 32.2 Vital signs have been reviewed and appear to be correct. Blood pressure elevated. Heart rate normal. Respiratory rate normal. Temperature normal. Oxygen saturation normal. Appearance: Alert. Oriented X3. No acute distress. Head: Normal external exam. Normocephalic. Atraumatic. No Garcia signs noted. No raccoon eyes noted Eyes: PERRLA. EOMI. Conjunctiva and sclera normal. Eyelids normal. ENT: TM's Normal. Pharynx normal. Uvula midline. Moist mucous membranes. No trismus noted. No drooling noted. No muffled voice noted. Neck: Normal inspection. Neck supple. FROM. No adenopathy. Thyroid Normal. No meningeal signs. No neck mass noted. CVS: Normal heart rate and rhythm. Heart sound normal. No murmurs noted. Pulses normal throughout. Respiratory: No respiratory distress. Painless inspiration. Breath sounds normal. No wheezes/rales/rhonchi noted. Chest nontender. No accessory muscle usage noted or decreased air movement noted. Abdomen: Soft and nontender. Bowel sounds normal in all 4 quadrants. No distention noted. No organomegaly noted. No visible injury noted. Back: No CVA tenderness. Full range of motion noted. Skin: Skin warm and dry. Normal skin color. Normal skin turgor. No rashes/lesions/lacerations noted. Extremities: No lower extremity edema. Extremities exhibit normal range of motion. Extremities nontender. Neuro: Mental status: Normal attention, orientation, memory, and affect. Cranial nerves: Pupils are equal, round and reactive to light, EOMI, visual garcia are fall, face is symmetric, facial sensations are normal. Motor examination normal muscle tone, strength to 4 extremities. DTR are +2, planter's are flexor. Sensory exam; normal coordination, no ataxia, gait stable. Cerebellar exam: Vpylmd-[id number]-rfmi and tvoq-[id number] is normal. Extrapyramidal system: No tremors, no rigidity with normal facial expressions. Pronator drift not present Course Course Course Narrative: Medical screening exam performed. Please refer to detailed history, exam, evaluation, and management by primary provider. Patient with right leg pain, same as previous. History of DVT in this leg, currently on Eliquis. Also has history of back pain, fibromyalgia and polyarthralgia. No new falls. Check labs and imaging. JS Reevaluation(s) Reevaluation #1: patient received Dilaudid and Tylenol in the ED with much improvement of the pain and radiation, repeat neuro exam is intact patient is able to ambulate with no weakness or numbness. Will discharge the patient with oxycodone and follow-up with thoracic spine clinic. Right hip and pelvis x-ray is unremarkable. Time: 00:28 Reevaluation #2: after was given Dilaudid IV back pain is 0 now but patient started to have nausea and vomiting which believed to be side effect Dilaudid. Patient was given Zofran, Phenergan, Maalox, and Carafate. Patient still should be able to be discharged and follow-up with the plan of following with spine clinic. Time: 01:00 Medications Administered Discontinued Medications Generic Name Dose Route Start Last Admin Trade Name Nitinq PRN Reason Stop Dose Admin Acetaminophen 975 mg 07/22/25 21:54 07/22/25 22:05 Acetaminophen 325 Mg Tablet PO 07/22/25 21:55 975 mg ONCE ONE Administration Al Hydroxide/Mg Hydroxide 30 ml 07/23/25 01:24 07/23/25 02:32 Magnesium Hydrox/Alum Hydrox 30 Ml Oral.Susp PO 07/23/25 01:25 Not Given ONCE ONE Hydromorphone HCl 2 mg 07/22/25 21:54 07/22/25 22:06 Hydromorphone Hcl 2 Mg Tablet PO 07/22/25 21:55 2 mg ONCE ONE Administration Hydromorphone HCl 2 mg 07/22/25 23:18 07/22/25 23:23 Hydromorphone Hcl 2 Mg/Ml Vial IM 07/22/25 23:19 2 mg ONCE ONE Administration Protocol Ondansetron HCl 4 mg 07/23/25 01:12 07/23/25 01:13 Ondansetron Odt 4 Mg Tab.Rapdis TRANSLINGU 07/23/25 01:13 4 mg ONCE ONE Administration Ondansetron HCl 4 mg 07/23/25 01:21 07/23/25 01:23 Ondansetron Odt 4 Mg Tab.Rapdis TRANSLINGU 07/23/25 01:22 4 mg ONCE ONE Administration Promethazine HCl 25 mg 07/23/25 01:24 07/23/25 02:32 Promethazine Hcl 25 Mg Tablet PO 07/23/25 01:25 Not Given ONCE ONE Sucralfate 1 gm 07/23/25 01:24 07/23/25 02:32 Sucralfate Oral Suspension 1 Gm/10 Ml Oral.Susp PO 07/23/25 01:25 Not Given ONCE ONE Medical Decision Making Differential Diagnosis Differential Diagnoses: The differential diagnosis associated with the presentation includes ( Lumbar radiculopathy, osteoarthritis of right hip, Cauda equina.) Admission/Observation Consideration of admission/observation: Escalation of care including admission/observation considered Lab Data MDM Lab Attestation statement: I reviewed the patient's lab results. 07/22/25 20:10 07/22/25 20:10 Labs: Lab Results 07/22/25 Range/Units 20:10 WBC 8.5 (4.8-10.8) X10*3/uL RBC 4.41 (4.20-5.50) X10*6/uL Hgb 12.9 (12.0-16.0) g/dl Hct 38.0 (37.0-47.0) % MCV 86.2 (80.0-98.0) fL MCH 29.3 (27.0-33.0) pg MCHC 33.9 (31.0-35.0) g/dl RDW 12.9 (11.0-16.0) % Plt Count 230 (160-400) X10*3/uL MPV 10.3 (9.4-12.3) fL Immature Gran % (Auto) 0.6 H (0.0-0.4) % Neut % (Auto) 61.6 (45-73) % Lymph % (Auto) 30.6 (20-40) % Prairie % (Auto) 5.8 (2-11) % Eos % (Auto) 0.8 (0-4) % Baso % (Auto) 0.6 (0-2) % Lymph # (Auto) 2.6 (1.2-4.9) X10*3/uL Prairie # (Auto) 0.5 (0.1-1.2) X10*3/uL Eos # (Auto) 0.1 (0.0-0.4) X10*3/uL Baso # (Auto) 0.1 (0.0-0.2) X10*3/uL Abs Immat Gran (auto) 0.05 H (0.00-0.03) X10*3/uL Absolute Neuts (auto) 5.3 (2.0-8.3) x10*3/uL Absolute Nucleated RBC 0.000 (0.0-0.012) X10*3/uL Nucleated RBC % (auto) 0.0 (0.0-0.2) /100WBC ESR 48 H (0-20) MM/HR Sodium 143 (135-145) mmol/L Potassium 4.0 (3.3-5.1) mmol/L Chloride 107 (96-108) mmol/L Carbon Dioxide 26 (22-29) mmol/L Anion Gap 14 (12-20) BUN 14 (9-16) mg/dL Creatinine 0.61 (0.5-1.4) mg/dL Estim Creat Clear Calc 102.9 Estimated GFR > 60 Random Glucose 95 (60-115) mg/dL Calcium 10.1 (8.4-10.2) mg/dL C-Reactive Protein 0.86 H (< or = 0.50) mg/dL C-React Prot High Sens Cancelled Beta HCG, Quant < 2 mIU/mL Hold Yellow Top See Note Independent Interpretation I performed an independent interpretation of an: Plain X-Ray ( Right help/pelvis: No acute findings.) Radiology Impression Discussion of test interpretation with radiology: I have reviewed the radiologist's reading. Discharge Plan Discharge Clinical Impression: Acute left lumbar radiculopathy Patient Disposition: Home, Self-Care Instructions: Acute Low Back Pain (ED) Prescriptions: New oxycodone 5 mg tablet 5 mg PO Q8H PRN (Reason: pain) Qty: 7 0RF Rx Instructions: Partial Fill upon patient request. cyclobenzaprine 10 mg tablet 10 mg PO TID PRN (Reason: muscle spasm) Qty: 10 0RF No Action propranolol 60 mg capsule,extended release 24 hr 60 mg PO DAILY 90 Days Qty: 90 0RF ondansetron 4 mg tablet,disintegrating 4 mg PO DAILY PRN (Reason: nausea and vomiting) 30 Days Qty: 10 5RF lidocaine 4 % adhesive patch,medicated 1 patch topical DAILY PRN (Reason: pain) Qty: 10 0RF oxycodone-acetaminophen 5-325 mg tablet PO Eliquis 5 mg tablet 5 mg PO BID cyclobenzaprine 10 mg tablet 10 mg PO BID PRN (Reason: muscle spasm) Qty: 30 0RF Referrals: Valerio Rocha MD, PhD [Physician, Neuro Spine] Interventions: ED Discharge Assessment Last Done: 07/23/25 03:58 Discharge Date/Time: 07/23/25 03:58 Print Language: Japanese
[2025-07-22 20:20] LABS: MANUAL DIFF FLAG NO
--- OUTSIDE RECORDS SUMMARY | 2025-07-22 20:24 | XMS_ITS | Encounter Summary ---
Author Organization [employer] Address [address] [place] [address] Care Team Providers Care Automobile Service Writer Name Role Phone Alireza Desai NP Primary Care Provider [phone] Encounter Details Date Type Department Care Team (Late st Contact Info) Description 07/21/2023 Orders Only [facility] MEDICAL [address] [place] [address] Provider, MD Becky Social History Tobacco Use [...] Description 07/25/2025 9:30 AM EST Office Visit [facility] OPTOMETRY [address] [place] [address] Ramon Salinas, OD [address] [place] [address] 07/31/2025 2:00 PM EST Office Visit [facility] MEDICAL [address] [place] [address] Alireza Desai NP [address] [place] [address] documented as of this encounter Procedures Procedure Name Priority Date/Time Associated Diagnosis Comments HM COLONOSCOPY Routine 01/06/2023 documented in this encounter Results * Hm Colonoscopy (01/06/2023) Historical Provider HEALTH MAINTENANCE Final Result documented in this encounter Visit Diagnoses Not on filedocumented in this encounter Care Teams Automobile Service Writer Relationship Specialty Start Date End Date Alireza Desai NP [address] [place] [address] PCP - General Internal Medicine 11/07/22 documented as of this encounter
--- OUTSIDE RECORDS SUMMARY | 2025-07-22 20:24 | XMS_ITS | Encounter Summary ---
Author Organization [employer] Address [address] [place] [address] Care Team Providers Care Concrete Pointer Name Role Phone Alireza Desai NP Primary Care Provider Encounter Details Date Type Department Care Team (Late st Contact Info) Description 06/08/2025 Orders Only [facility] [address] [place] [address] Alireza Desai NP [address] [place] [address] Social History Tobacco Use Types Packs/Day Years [...] Description 07/25/2025 9:30 AM EST Office Visit [facility] OPTOMETRY [address] [place] [address] Ramon Salinas, OD [address] [place] [address] 07/31/2025 2:00 PM EST Office Visit [facility] MEDICAL [address] [place] [address] Alireza Desai NP [address] [place] [address] documented as of this encounter Procedures Procedure [...] Modality Computed Tomogra phy us Alireza Desai TOOL RENTAL TECHNICIAN IMG CT PROCEDURES Final Resu lt * [...] on filedocumented in this encounter Care Teams Concrete Pointer Relationship Specialty Start Date End Date Alireza Desai NP [address] [place] [address] PCP - General Internal Medicine 11/07/22 documented as of this encounter
--- OUTSIDE RECORDS SUMMARY | 2025-07-22 20:24 | XMS_ITS | Clinical Summary ---
Author Organization [employer] Address [address] [place] [address] 7t [place] [address] Care Team Providers Care Ethnoarchaeology Professor Name Role Phone Alireza Desai NP Primary Care Provider Allergies Active Allergy Reactions Criticality Noted Date Comments Lamotrigine 10/07/2022 Other reaction(s): Hyper-aggressive Latex 01/06/2020 Other reaction(s): Hives Levofloxacin Unknown 10/07/2022 Penicillamine Rash Low 10/07/2022 Penicillins 01/06/2020 Other reaction(s): Skin irritation [place] Flavoring Agent (Non-Screening) Hives 10/07/2022 ONLY [place] [...] Type Department Care Team Description 07/05/2025 Telephone [place] [facility] MEDICAL [address] [place] [address] Alireza Desai NP Refill pain meds 06/13/2025 Telephone [facility] [address] [place] [address] Alireza Desai NP PFLMA PPW 06/09/2025 12:00 PM EDT Office Visit [place] [facility] [address] [place] [address] Hannah Cruz FNP Degeneration of intervertebral disc of lumbar region with discogenic back pain and lower extremity pain (Primary Dx); Nausea; Acute deep vein thrombosis (DVT) of other specified vein of right lower extremity (CMS/HCC) 06/09/2025 Results Follow-Up [address] [address] Hannah Cruz FNP MR Lumbar Spine w/o Contrast 06/08/2025 Results Follow-Up [address] [address] Alireza Desai NP CBC auto differential 06/08/2025 Orders Only [facility] Information Management [address] [place] [address] Alireza Desai NP 06/07/[address] [address] Alireza Desai NP Need ED notes from [facility] 06/07/2025 Orders Only [place] [facility] [address] [place] [address] Alireza Desai NP 06/06/[address] [address] Alireza Desai NP hospital discharge, obtain hospital records 06/01/2025 12:30 PM EDT Office Visit [address] [address] Alireza Desai NP Acute deep vein thrombosis (DVT) of other specified vein of right lower extremity (CMS/HCC) (Primary Dx); Chronic right-sided low back pain with right-sided sciatica; Pain of right thigh; Hyperlipidemia, unspecified hyperlipidemia type 05/30/2025 Travel 05/24/2025 10:00 AM EDT Office Visit [address] [address] Hannah Cruz FNP Acute deep vein thrombosis (DVT) of other specified vein of right lower extremity (CMS/HCC) (Primary Dx); Chronic right-sided low back pain with right-sided sciatica; Hypertension, unspecified type 05/24/2025 Telephone [facility] [address] [place] [address] Susana Harrell LPN pain in leg, hip, and back 05/23/2025 Telephone [facility] Information Management [address] [place] [address] Alireza Desai NP 05/21/2025 Orders Only [facility] [address] [place] [address] Alireza Desai NP 05/16/2025 9:30 AM EDT Office Visit [facility] MEDICAL [address] [place] [address] Shelly Styles MD Right-sided low back pain with right-sided sciatica, unspecified chronicity (Primary Dx); Hyperlipidemia, unspecified hyperlipidemia type; Hypertension, unspecified type 05/03/2025 Telephone [facility] [address] [place] [address] Alireza Desai NP ED Visit 05/03/2025 Orders Only [facility] [address] [place] [address] ProviderBecky MD 04/21/2025 Telephone [facility] MEDICAL [address] [place] [address] Alireza Desai NP hospital discharge, obtain hospital [...] Description 07/25/2025 9:30 AM EST Office Visit [facility] OPTOMETRY [address] [place] [address] Rita Ramon, OD [address] [place] [address] 07/31/2025 2:00 PM EST Office Visit [facility] MEDICAL [address] [place] [address] Alireza Desai, BRYNN [address] [place] [address] Health Maintenance Due Date Last Done Comments [...] * Referral to Pain Medicine (07/06/2025) [facility] OUTPATIENT REFERRAL ORDER KYLE Final Result * Basic Metabolic Panel (06/06/2025 9:22 AM EDT) Blood Venous blood specimen / Unknown Alireza Desai NP LAB BLOOD ORDERABLES Final R esult * ECG 12 lead (06/05/2025 1:48 PM EDT) Alirzea Desai NP ECG ORDERABLES Final Result * [...] AM EDT Performed at: 01 - [facility] [address] [id number] Program Director/Air Personality: Nanda Alarcon MD, Phone: [phone] Alireza Desai NP LAB BLOOD ORDERABLES Final R esult [facility] 1 * Hm Colonoscopy (01/06/2023) Historical Provider HEALTH MAINTENANCE Final Result * Hm Mammography (12/16/2022) Anatomical Region Laterality Modality Other Historical Provider HEALTH MAINTENANCE Final Result from Last 3 Months or Most Recently Relevant to Health Maintenance Insurance [facility] < 65 [facility] < 65 Care Teams Ethnoarchaeology Professor Relationship Specialty Start Date End Date Alireza Desai NP [address] [place] [address] PCP - General Internal Medicine 11/07/22
--- OUTSIDE RECORDS SUMMARY | 2025-07-22 20:24 | XMS_ITS | Encounter Summary ---
Author Organization [facility] Address [address] [address] Care Team Providers Care Application Packaging Specialist Name Role Phone Alireza Desai NP Primary Care Provider [phone] Encounter Details Date Type Department Care Team (Late st Contact Info) Description 07/27/2023 Orders Only [facility] MEDICAL [address] [place], [place] [id number] Provider, MD Becky Social History Tobacco Use [...] Description 07/25/2025 9:30 AM EST Office Visit [facility] OPTOMETRY [address] [place] [address] Ramon Salinas, OD [address] [place] [address] 07/31/2025 2:00 PM EST Office Visit [facility] MEDICAL [address] [place] [address] Alireza Desai NP [address] [place] [address] documented as of this encounter Procedures Procedure Name Priority Date/Time Associated Diagnosis Comments HM MAMMOGRAPHY Routine 12/13/2022 documented in this encounter Results * Hm Mammography (12/13/2022) Anatomical Region Laterality Modality Other us Historical Provider HEALTH MAINTENANCE Final Result documented in this encounter Visit Diagnoses Not on filedocumented in this encounter Care Teams Application Packaging Specialist Relationship Specialty Start Date End Date Alireza Desai NP [address] [place] [address] PCP - General Internal Medicine 11/07/22 documented as of this encounter
--- OUTSIDE RECORDS SUMMARY | 2025-07-22 20:24 | XMS_ITS | Encounter Summary ---
Author Organization [employer] Address [address] [place] [address] Care Team Providers Care Corpsman Name Role Phone Alireza Desai NP Primary Care Provider [phone] Encounter Details Date Type Department Care Team (Late st Contact Info) Description 05/03/[address] [facility] MEDICAL [address] [place] [address] Provider, MD Becky Social History Tobacco Use [...] Office Visit [facility] OPTOMETRY [address] [place] [address] Ramon Salinas, OD [address] [place] [address] 07/31/2025 2:00 PM EST Office Visit [facility] MEDICAL [address] [place] [address] Alireza Desai NP [address] [place] [address] documented as of this encounter Procedures Procedure [...] on filedocumented in this encounter Care Teams Corpsman Relationship Specialty Start Date End Date Alireza Desai NP [address] [place] [address] PCP - General Internal Medicine 11/07/22 documented as of this encounter
--- OUTSIDE RECORDS SUMMARY | 2025-07-22 20:24 | XMS_ITS | Encounter Summary ---
Author Organization [employer] Address [address] [place] [address] Care Team Providers Care Air Conditioning Technician Name Role Phone Alireza Desai NP Primary Care Provider Encounter Details Date Type Department Care Team (Late st Contact Info) Description 05/21/2025 Orders Only [facility] Information Management [address] [place] [address] Alireza Desai NP [address] [place] [address] Social History Tobacco Use Types Packs/Day Years [...] AM EST Office Visit [facility] OPTOMETRY [address] [place] [address] Ramon Salinas, OD [address] [place], [place] [phone] 07/31/2025 2:00 PM EST Office Visit [facility] MEDICAL [address] [place] [address] Alireza Desai NP [address] [place] [address] documented as of this encounter Procedures Procedure Name Priority Date/Time Associated Diagnosis Comments US LOWER EXTREMITY VENOUS RIGHT Routine 05/19/2025 10:55 AM EDT documented in this encounter Results * VASC US Lower Extremity Venous Right (05/19/2025 10:55 AM EDT) Alireza Desai NP CV VASCULAR PROCEDURES Final Result documented in this encounter Visit Diagnoses Not on filedocumented in this encounter Care Teams Air Conditioning Technician Relationship Specialty Start Date End Date Alireza Desai NP [address] [place] [address] PCP - General Internal Medicine 11/07/22 documented as of this encounter
--- OUTSIDE RECORDS SUMMARY | 2025-07-22 20:24 | XMS_ITS | Encounter Summary ---
Author Organization [employer] [facility] Address [address] [place] [address] 7 [place] [address] Care Team Providers Care Household Appliances Service Technician Name Role Phone Alireza Desai NP [...] Description 07/25/2025 9:30 AM EST Office Visit [facility] OPTOMETRY [address] [place] [address] Ramon Salinas OD [address] [place] [address] 07/31/2025 2:00 PM EST Office Visit [facility] MEDICAL [address] [place] [address] Alireza Desai NP [address] [place] [address] documented as of this encounter Visit Diagnoses Not on filedocumented in this encounter Care Teams Household Appliances Service Technician Relationship Specialty Start Date End Date Alireza Desai NP [address] [place] [address] PCP - General Internal Medicine 11/07/22 documented as of this encounter
--- OUTSIDE RECORDS SUMMARY | 2025-07-22 20:24 | XMS_ITS | Encounter Summary ---
Author Organization [facility] [facility] Address [address] [facility] [place] [address] Care Team Providers Care Consular Officer Name Role Phone Alireza Desai NP Primary Care Provider [phone]- [phone] Encounter Details Date Type Department Care Team (Late st Contact Info) Description 06/08/2025 Results Follow-Up Daniel [facility] MEDICAL [address] [place] [address] Alireza Desai NP [address] [place] [address] CBC auto differential Social History Tobacco Use [...] Description 07/25/2025 9:30 AM EST Office Visit [facility] OPTOMETRY [address] [place], [place] [id number] Ramon Salinas, OD [address] [place] [address] 07/31/2025 2:00 PM EST Office Visit [facility] MEDICAL [address] [place] [address] Alireza Desai NP [address] [place] [address] documented as of this encounter Visit Diagnoses Not on filedocumented in this encounter Care Teams Consular Officer Relationship Specialty Start Date End Date Alireza Desai NP [address] [place] [address] PCP - General Internal Medicine 11/07/22 documented as of this encounter
--- OUTSIDE RECORDS SUMMARY | 2025-07-22 20:24 | XMS_ITS | Encounter Summary ---
Author Organization [employer] [facility] Address [address] [facility] [address] [place] [address] Care Team Providers Care Computer System Specialist Name Role Phone Alireza Desai NP Primary Care Provider Encounter Details Date Type Department Care Team (Late st Contact Info) Description 06/07/2025 Orders Only [facility] [address] [place] [address] Alireza Desai NP [address] [place] [address] Social History Tobacco Use Types Packs/Day Years [...] [facility] OPTOMETRY [address] [place] [address] Ramon Salinas, OD [address] [place], [place] [id number] 07/31/2025 2:00 PM EST Office Visit [facility] MEDICAL [address] [place] [address] Alireza Desai NP [address] [place] [address] documented as of this encounter Procedures Procedure Name Priority Date/Time Associated Diagnosis Comments BASIC METABOLIC PANEL Routine 06/06/2025 9:22 AM EDT documented in this encounter Results * Basic Metabolic Panel (06/06/2025 9:22 AM EDT) Blood Venous blood specimen / Unknown Alireza Desai NP LAB BLOOD ORDERABLES Final R esult documented in this encounter Visit Diagnoses Not on filedocumented in this encounter Care Teams Computer System Specialist Relationship Specialty Start Date End Date Alireza Desai NP [address] [place] [address] PCP - General Internal Medicine 11/07/22 documented as of this encounter
--- OUTSIDE RECORDS SUMMARY | 2025-07-22 20:24 | XMS_ITS | Encounter Summary ---
Author Organization [employer] [facility] Address [address] [facility] 7t [place] [address] Care Team Providers Care Hairspring Fabrication Supervisor Name Role Phone Alireza Desai NP Primary Care Provider Encounter Details Date Type Department Care Team (Late st Contact Info) Description 12/16/2022 Orders Only [facility] MEDICAL [address] [place] [address] Provider, MD Becky Social History Tobacco Use [...] Description 07/25/2025 9:30 AM EST Office Visit [facility] OPTOMETRY [address] [place] [address] Ramon Salinas OD [address] [place] [address] 07/31/2025 2:00 PM EST Office Visit [facility] MEDICAL [address] [place] [address] Alireza Desai NP [address] [place] [address] documented as of this encounter Procedures Procedure Name Priority Date/Time Associated Diagnosis Comments MAMMOGRAPHY Routine 12/16/2022 documented in this encounter Results * Mammography (12/16/2022) Anatomical Region Laterality Modality Other us Historical Provider HEALTH MAINTENANCE Final Result documented in this encounter Visit Diagnoses Not on filedocumented in this encounter Care Teams Hairspring Fabrication Supervisor Relationship Specialty Start Date End Date Alireza Desai NP [address] [place] [address] PCP - General Internal Medicine 11/07/22 documented as of this encounter
--- OUTSIDE RECORDS SUMMARY | 2025-07-22 20:24 | XMS_ITS | Encounter Summary ---
Author Organization [employer] Address [address] [facility] [address] 7[address] [place] [address] Care Team Providers Care Triage Technician Name Role Phone Alireza Desai NP Primary Care Provider Encounter Details Date Type Department Care Team (Late st Contact Info) Description 05/23/2025 Telephone [facility] [address] [place] [address] Alireza Desai NP [address] [place] [address] Social History Tobacco Use Types Packs/Day Years [...] Description 07/25/2025 9:30 AM EST Office Visit [facility] OPTOMETRY [address] [place] [address] Ramon Salinas, OD [address] [place] [address] 07/31/2025 2:00 PM EST Office Visit [facility] MEDICAL [address] [place] [address] Alireza Desai NP [address] [place] [address] documented as of this encounter Visit Diagnoses Not on filedocumented in this encounter Care Teams Triage Technician Relationship Specialty Start Date End Date Alireza Desai NP [address] [place] [address] PCP - General Internal Medicine 11/07/22 documented as of this encounter
--- OUTSIDE RECORDS SUMMARY | 2025-07-22 20:24 | XMS_ITS | Encounter Summary ---
Author Organization [employer] [facility] Address [address] [facility] 7t [place] [address] Care Team Providers Care Crane Operator Name Role Phone Alireza Desai NP Primary Care Provider [phone]- [phone] Reason for Visit * Reason Onset Date Comments Need ED notes from [facility] 06/07/2025 Encounter Details Date Type Department Care Team (Late st Contact Info) Description 06/07/2025 Telephone Daniel [facility] MEDICAL [address] [place] [address] Alireza Desai NP [address] [place] [address] Need ED notes from [facility] Social History Tobacco Use Types Packs/Day [...] - 06/07/2025 3:48 PM EDT Notes from [facility] ED indicate that patient was seen in [facility] ED on 06/05/25 and had multiple arterial and venous imaging studies of her LE, as well as imaging of her low back. Please try to get all those records as soon as possible. thanks documented in this encounter Plan of Treatment Upcoming Encounters Date Type Department Care Team (Late st Contact Info) Description 07/25/2025 9:30 AM EST Office Visit [place] [facility] OPTOMETRY [address] [place] [address] Ramon Salinas OD [address] [place] [address] 07/31/2025 2:00 PM EST Office Visit [facility] MEDICAL [address] [place] [address] Alireza Desai NP [address] [place] [address] documented as of this encounter Visit Diagnoses Not on filedocumented in this encounter Care Teams Crane Operator Relationship Specialty Start Date End Date Alireza Desai NP [address] [place] [address] PCP - General Internal Medicine 11/07/22 documented as of this encounter
[2025-07-22 20:26] LABS: Hematocrit 38.0 % (37.0-47.0); Hemoglobin 12.9 g/dl (12.0-16.0); Imm Gran Abs Auto 0.05 X10*3/uL (0.00-0.03); Imm Gran Pct Auto 0.6 % (0.0-0.4); Lymphocytes Absolute Auto 2.6 X10*3/uL (1.2-4.9); Mean Corpuscular HGB Conc 33.9 g/dl (31.0-35.0); Mean Corpuscular Hemoglobin 29.3 pg (27.0-33.0); Mean Corpuscular Volume 86.2 fL (80.0-98.0); NRBC Abs Auto 0.000 X10*3/uL (0.0-0.012); NRBC Pct Auto 0.0 /100WBC (0.0-0.2); Platelet Count 230 X10*3/uL (160-400); Red Blood Count 4.41 X10*6/uL (4.20-5.50); White Blood Count 8.5 X10*3/uL (4.8-10.8)
[2025-07-22 20:41] VITALS: BP 128/68; PULSE 97; RESP 18; TEMP 36.5; O2SAT 99
[2025-07-22 20:48] LABS: Anion Gap 14 (12-20); Blood Urea Nitrogen 14 mg/dL (9-16); Calcium 10.1 mg/dL (8.4-10.2); Carbon Dioxide 26 mmol/L (22-29); Chloride 107 mmol/L (96-108); Creatinine Clr Calc Pharmacy 102.9; Estimated Glomerular Filt Rate > 60; Potassium 4.0 mmol/L (3.3-5.1); Sodium 143 mmol/L (135-145)
[2025-07-22 21:09] LABS: Erythrocyte Sedimentation Rate 48 MM/HR (0-20)
--- NOTE | 2025-07-22 22:50 | PC.NURSE ---
Pt states pain medications did not provide any relief. Pt was offered IM pain medication but declined at this time. Pt states, I do not like to take medication.
--- NOTE | 2025-07-22 23:14 | PC.NURSE ---
Pt now requesting IM pain medication, provider notified.
[2025-07-22 23:38] VITALS: BP 165/84; PULSE 86; RESP 20; TEMP 36.7; O2SAT 97
--- NOTE | 2025-07-22 23:44 | PC.NURSE ---
Pt provided ice water and ice pack after reporting feeling dizzy s/p IM meds. Provider aware. Vital signs obtained. Will continue to monitor pt and discharge when feeling more comfortable per provider.
--- NOTE | 2025-07-23 01:13 | PC.NURSE ---
pt became nauseous and 1x vomiting. reports hasn't eaten since 1pm, per MD likely caused by side effect of narcotics and pt agrees. pt agreeable to odt zofran and crackers/gingerale.
--- NOTE | 2025-07-23 01:36 | PC.NURSE ---
Pt refusing meds at this time, will attempt again shortly.
--- NOTE | 2025-07-23 02:40 | PC.NURSE ---
pt woke up reporting n/v resolved and feels better but does not quite feel ready to be discharged. family educated and agreeable with this, they will return in AM to pick her up. provider agreeable as well.
[2025-07-23 03:58] VITALS: BP 165/84; PULSE 86; RESP 20; TEMP 36.7; O2SAT 97
== END 2025-07-23 03:58 | disposition home or self-care (01) ==
PROVIDERS: Physician Assistant; Emergency Provider Emergency Medicine
DX: M54.16 Radiculopathy, lumbar region (principal); Z86.718 Personal history of other venous thrombosis and embolism; Z79.01 Long term (current) use of anticoagulants; Z88.0 Allergy status to penicillin; Z88.8 Allergy status to other drugs, medicaments and biological substances; Z91.040 Latex allergy status
CPT/HCPCS: 36415; 73502; 80048; 84702; 85025; 85652; 86140; 96372; 99284; J1171

== ENCOUNTER → 2025-07-22 18:42 | Outpatient (BNV) | payer OTHER, SELFPAY | PROVIDERS: Visit Provider Nuclear Medicine | DX: M25.551 Pain in right hip (principal) | CPT/HCPCS: 73502 ==